=== PATIENT | female | born 1990 | race Caucasian/White ===

== ENCOUNTER → 2017-01-10 | Outpatient (CLI) | payer BC, OTHER ==
[~2017-01-10] MED LIST: BNT20 PO; CRFL PO; DICL75TA2 PO; HYDROCODONE PO; IBUP-1050 PO; ONDA4TAB65 PO; ONDA8TAB62 SL; OXYC1TAB3 PO; PANT40TA PO; PRENTAB65 PO; TRAM-10 PO
== END | disposition home or self-care (01) ==
LOC: C.RDSM 15:25
PROVIDERS: ATTEND Physical Medicine & Rehabilitation Sports Medicine
DX: M25.512 Pain in left shoulder (principal)

== ENCOUNTER 2017-01-15 18:23 | Emergency (ER) | payer OTHER ==
[~2017-01-15] VITALS: Ht 162.6 cm; Wt 103.8 kg
[~2017-01-15 18:23] MED LIST changes: -BNT20 PO; -CRFL PO; -DICL75TA2 PO; -ONDA4TAB65 PO; -ONDA8TAB62 SL; -OXYC1TAB3 PO; -PANT40TA PO; -PRENTAB65 PO; -TRAM-10 PO
[2017-01-15 18:33] VITALS: TEMP 37; Ht 162.6 cm; Wt 103.8 kg
--- NOTE | 2017-01-15 18:48 | EMERGENCY ROOM VISIT NOTE ---
ED Visit Note First contact with patient: 18:38 CHIEF COMPLAINT: Wrist injury HISTORY OF PRESENT ILLNESS: This 26-year-old female patient presents to the emergency department ambulatory complaining of pain in the right wrist after falling today. The patient is able to move their wrist. The patient states the pain is sharp and 9/10. No laceration, no weakness. No numbness or tingling. The patient denies any other injury. The patient is able to move their fingers and elbow without difficulty. The patient has not had any previous injuries to this wrist. The patient has taken nothing for the pain. REVIEW OF SYSTEMS: A 6 system review of systems was performed with positives and pertinent negatives in the HPI. ALLERGIES: Penicillin MEDICATIONS: Tramadol, Zofran, stomach medication PMH: Stomach problems SOCIAL HISTORY: The patient lives locally. She is a smoker PHYSICAL EXAM: Vital Signs: Reviewed Nurse's notes, vital signs stable. GENERAL : This is a 26-year-old female, in no acute distress, but appears to be in pain , well-developed, well-nourished. NEURO: Alert and oriented to person place and time. Normal sensation to light and sharp touch. MUSCULOSKELETAL: There is no deformity of the right wrist. There is no erythema and no ecchymosis. There is no edema. Tenderness over the wrist diffusely. There is no snuff box tenderness. There is tenderness with any movement. Range of motion is intact but painful. There is no tenderness of the elbow, hand or fingers. 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 Radial pulse 2+. SKIN: Normal and intact. The hand is warm and well perfused with capillary refill less than 2 seconds. EMERGENCY DEPARTMENT COURSE: I examined the patient. An X-ray of the right wrist was reviewed by myself and radiology and showed ulnar minus variance. The patient did seem to have some tenderness at the elbow. Therefore, x-rays of the elbow and forearm were ordered to evaluate for possible Galeazzi's fracture with ligamentous injury. These x-rays were negative. A wrist lacer splint was placed under my direction and the position was satisfactory. Neurovascular status rechecked and intact. The patient was given 1 Percocet in the emergency department. She does take tramadol and was encouraged to continue this medication as well as anti-inflammatories. She should follow-up with orthopedics in 5-7 days if her symptoms are not improving. The patient was discharged home in good condition. RIGHT WRIST W/NAVICULAR MIN 3 VIEWS CLINICAL HISTORY: Right wrist pain. Trauma. COMPARISON: None. DISCUSSION: There is ulnar minus variance. No acute fractures are visualized. IMPRESSION: Ulnar minus variance. No acute fractures. Problem List Medical Problems: (1) Acute bronchitis Status: Resolved Current/Historical Medications Scheduled Diclofenac Sodium (Voltaren), 75 MG PO BID Scheduled PRN Ondansetron Hcl (Zofran), 4 MG PO Q8 PRN for Nausea Tramadol (Ultram), 50 MG PO Q6H PRN for Pain Allergies Coded Allergies: Penicillins (Unverified Allergy, Mild, RASH, 05/27/16) Vital Signs Date Time Temp Pulse Resp B/P Pulse Ox O2 Delivery O2 Flow Rate FiO2 01/15/17 21:05 85 18 141/95 99 01/15/17 18:33 37.0 87 16 139/87 99 Room Air Medications Administered Medications (Trade) Dose Ordered Sig/Gamal Route Start Time Stop Time Status Last Admin Dose Admin Oxycodone/ Acetaminophen (Percocet 5-325mg Tab) 1 tab NOW ONCE PO 01/15/17 20:30 01/15/17 20:31 DC 01/15/17 21:02 1 TAB Departure Information Impression Primary Impression: Wrist sprain Dispostion Home / Self-Care Condition GOOD Referrals Chelsea Soliz D.O. (PCP) Seamus Castellano MD Forms HOME CARE DOCUMENTATION FORM, IMPORTANT VISIT INFORMATION, WORK / SCHOOL INSTRUCTIONS Patient Instructions ED Sprain Wrist, [facility] Additional Instructions Ibuprofen 600 mg every 6-8 hours or moderate pain Continue your tramadol as prescribed, as needed for pain Wear the splint when up and about Contact orthopedics for a follow-up appointment in 5-7 days if the symptoms are not improving Return with worsening symptoms
[2017-01-15] MEDS ORDERED: TRAM-10 PO (18:53)
[2017-01-15] MEDS ORDERED: ONDA4TAB65 PO (18:53)
[2017-01-15] MEDS ORDERED: DICL75TA2 PO (18:53)
--- NOTE | 2017-01-15 19:32 | DIAGNOSTIC IMAGING REPORT ---
RIGHT WRIST W/NAVICULAR MIN 3 VIEWS CLINICAL HISTORY: Right wrist pain. Trauma. COMPARISON: None. DISCUSSION: There is ulnar minus variance. No acute fractures are visualized. IMPRESSION: Ulnar minus variance. No acute fractures. Electronically signed by: Tucker Delong M.D. 01/15/2017 7:30 PM Dictated Date/Time: 01/15/2017 7:29 PM
--- NOTE | 2017-01-15 20:29 | DIAGNOSTIC IMAGING REPORT ---
RIGHT ELBOW 2 VIEWS CLINICAL HISTORY: Right elbow pain COMPARISON: None. DISCUSSION: The fat pads are not displaced. No fractures or dislocations are visualized. The AP view is limited from a positioning standpoint as the patient was unable to supinate. IMPRESSION: No fractures or dislocations identified. Electronically signed by: Tucker Delong M.D. 01/15/2017 8:27 PM Dictated Date/Time: 01/15/2017 8:26 PM
[2017-01-15] MEDS ORDERED: OXYCODONE/ACETAMINOPHEN 5-325 TAB PO ONE (20:30)
--- NOTE | 2017-01-15 20:30 | DIAGNOSTIC IMAGING REPORT ---
RIGHT FOREARM 2 VIEWS ROUTINE CLINICAL HISTORY: Right forearm pain COMPARISON: None. DISCUSSION: There is ulnar minus variance. No acute fractures are visualized. IMPRESSION: No fractures identified. Electronically signed by: Tucker Delong M.D. 01/15/2017 8:28 PM Dictated Date/Time: 01/15/2017 8:27 PM
[2017-01-15 21:05] VITALS: BP 141/95; PULSE 85; O2SAT 99
[2017-02-18] MEDS ORDERED: PANT40TA PO (15:15)
[2017-02-18] MEDS ORDERED: BNT20 PO (15:15)
== END 2017-01-15 21:27 | disposition home or self-care (01) ==
LOC: C.EDB 18:25 → C.EDD 21:27
DX: S63.501A Unspecified sprain of right wrist, initial encounter (principal); W19.XXXA Unspecified fall, initial encounter; F17.200 Nicotine dependence, unspecified, uncomplicated; Z87.19 Personal history of other diseases of the digestive system; Z88.1 Allergy status to other antibiotic agents

== ENCOUNTER → 2017-02-11 | Outpatient (CLI) | payer OTHER ==
[~2017-02-11] MED LIST changes: +BNT20 PO; +CRFL PO; +DICL75TA2 PO; -HYDROCODONE PO; -IBUP-1050 PO; +ONDA4TAB65 PO; +ONDA8TAB62 SL; +OXYC1TAB3 PO; +PANT40TA PO; +PRENTAB65 PO; +TRAM-10 PO
== END | disposition home or self-care (01) ==
LOC: C.RDSM 14:03
PROVIDERS: ATTEND Physical Medicine & Rehabilitation Sports Medicine
DX: M25.532 Pain in left wrist (principal)

== ENCOUNTER 2017-02-17 07:56 | Emergency (ER) | payer OTHER ==
[~2017-02-17] VITALS: Ht 160 cm; Wt 105.9 kg
[~2017-02-17 07:56] MED LIST changes: -BNT20 PO; -CRFL PO; -ONDA8TAB62 SL; -OXYC1TAB3 PO; -PANT40TA PO; -PRENTAB65 PO
[2017-02-17 08:00] VITALS: TEMP 36.8; Ht 160 cm; Wt 105.9 kg
[2017-02-17] MEDS ORDERED: ONDANSETRON INJ 2 MG/ML 2 ML VIAL IV STA (08:22)
[2017-02-17] MEDS ORDERED: SODIUM CHLORIDE 0.9% 1000ML 1,000 ML IV STA (08:22)
[2017-02-17] MEDS ORDERED: MoRPHine SULFATE 4 MG/ML 1 ML CARP\\VIAL IV STA (08:22)
[2017-02-17] MEDS ORDERED: MoRPHine SULFATE 4 MG/ML 1 ML CARP\\VIAL IV PRN (08:30)
[2017-02-17 09:06] LABS: BASO % 0.4 %; BASO ABS # 0.03 K/uL (0-0.2); COMPLETE YES; EOS % 3.3 %; HEMATOCRIT 42.9 % (37-47); IG% 0.5 %; LYMPH % 22.5 %; LYMPH ABS # 1.84 K/uL (1.2-3.4); MEAN CELL VOLUME 89.4 fL (80-100); MEAN CORPUSCULAR HEMOGLOBIN 30.4 pg (25-34); MEAN PLATELET VOLUME 9.9 fL (7.4-10.4); MONO % 8.8 %; NEUT % 64.5 %; PLATELET COUNT 168 K/uL (130-400); WHITE BLOOD COUNT 8.17 K/uL (4.8-10.8)
[2017-02-17 09:16] LABS: URINE APPEARANCE CLEAR (CLEAR); URINE BILIRUBIN NEG (NEG); URINE COLOR YELLOW; URINE EPITHELIAL CELL AUTO >30 /lpf (0-5); URINE NITRITE NEG (NEG); URINE PH 5.5 (4.5-7.5); URINE SPECIFIC GRAVITY 1.018 (1.000-1.030); UROBILINOGEN NEG (NEG)
[2017-02-17 09:17] LABS: INR 0.9 (0.9-1.1); PARTIAL THROMBOPLASTIN RATIO 1.1
[2017-02-17 09:19] LABS: MANUAL MICROSCOPIC REQUIRED? NO; REVIEW REQ? NO
[2017-02-17 09:23] LABS: ALT/SGPT 65 U/L (12-78); BLOOD UREA NITROGEN 10 mg/dl (7-18); BUN/CREATININE RATIO 11.6 (10-20); CALCIUM 8.7 mg/dl (8.5-10.1); CARBON DIOXIDE 29 mmol/L (21-32); CHLORIDE 106 mmol/L (98-107); CREATININE 0.86 mg/dl (0.60-1.20); GLUCOSE 116 mg/dl (70-99); POTASSIUM 3.8 mmol/L (3.5-5.1); SODIUM 141 mmol/L (136-145)
[2017-02-17 09:26] LABS: ALKALINE PHOSPHATASE 77 U/L (45-117); AST/SGOT 31 U/L (15-37)
[2017-02-17] MEDS ORDERED: MoRPHine SULFATE 10 MG/ML CARP/VIAL IV STA (10:11)
[2017-02-17 11:09] VITALS: BP 143/95; PULSE 71; O2SAT 99
[2017-02-17] MEDS ORDERED: OXYC1TAB3 PO (11:38)
--- NOTE | 2017-02-17 17:42 | EMERGENCY ROOM VISIT NOTE ---
History First contact with patient: 08:03 Chief Complaint: GI ASSESSMENT Stated Complaint: MIGRAINE, VOMITING W/BLOOD, BLOOD IN STOOL Nursing Triage Summary: vomitied blood this morning. denies abdominal pain. "I do also have a headache" History of Present Illness The patient is a 26 year old female who presents to the Emergency Room with complaints of constant epigastric abdominal pain with bloody vomitus and blood on her stool this morning. The patient reports that bleeding from both ends were bright red in appearance. The patient denies any prior history of GI bleed. The patient reports that she has recently had a cold with mild sinus congestion. She has had a nonproductive cough. The patient is status post cholecystectomy last fall, and has had intermittent nausea since that time. She has also undergone upper endoscopy studies that have been normal. She is under the care of Dr. Dickens. The patient reports that she ate some fried food from [employer] last night. She also reports a frontal headache. She denies any urinary symptoms, recent constipation or diarrhea. She rates her overall discomfort a 10 out of 10. Review of Systems HEENT: Denies dizziness, visual problems, hearing loss, tinnitus. Denies difficulty swallowing or oral lesions. PULMONARY: Patient reports a mild nonproductive cough, without shortness of breath, sputum production or hemoptysis. CARDIOVASCULAR: Denies chest pain, palpitations, dyspnea on exertion, orthopnea or peripheral edema. GASTROINTESTINAL: Denies diarrhea or constipation, otherwise see history of present illness. GENITOURINARY: Denies dysuria, frequency, urgency or nocturia. NEUROLOGIC: Denies history of epilepsy, CVA, TIA or chronic headaches. MUSCULOSKELETAL: Denies history of joint tenderness/swelling. SKIN: Denies rashes or lesions. PSYCHIATRIC: Denies history of depression or mental illness. ENDOCRINE: Denies history of diabetes or thyroid disorders. Past Medical/Surgical History Medical Problems: (1) Acute bronchitis Medical Problems: (1) Acute bronchitis (2) Cigarette nicotine dependence, uncomplicated (3) Depressive Disorder Nec (4) Esophageal Reflux (5) Pneumonia, Organism Nos (6) Tobacco use disorder Surgical Problems: (1) History of arthroscopy of shoulder (2) History of cholecystectomy Family History Diabetes mellitus FH: cancer FH: gallbladder disease FH: hypertension FH: lung disease FH: seizures Kidney disease Social History Smoking Status: Current Every Day Smoker Alcohol Use: occasionally Marital Status: single Occupation Status: employed Current/Historical Medications Scheduled Diclofenac Sodium (Voltaren), 75 MG PO BID Scheduled PRN Ondansetron Hcl (Zofran), 4 MG PO Q8 PRN for Nausea Oxycodone Ir (Roxicodone Ir), 1 TAB PO Q6H PRN for Pain Tramadol (Ultram), 50 MG PO Q6H PRN for Pain Allergies Coded Allergies: Penicillins (Unverified Allergy, Mild, RASH, 02/17/17) Physical Exam Vital Signs Date Time Temp Pulse Resp B/P Pulse Ox O2 Delivery O2 Flow Rate FiO2 02/17/17 11:09 71 18 143/95 99 Room Air 02/17/17 10:30 90 18 122/82 98 Room Air 02/17/17 08:00 36.8 77 18 120/78 98 Room Air Physical Exam CONSTITUTIONAL: Obese female, alert and oriented X 3 with positive affect. Patient appears in mild discomfort on exam. She does not appear acutely or toxic. HEENT: Normocephalic, atraumatic. Pupils equal, round and reactive. Ears and nares are clear. No scleral icterus or conjunctival pallor. NECK: Full active range of motion without discomfort. RESPIRATORY: Clear to auscultation bilaterally with no wheezing, crackles, rhonchi or stridor. CARDIOVASCULAR: Regular rate and rhythm with no murmurs, rubs or gallops. GASTROINTESTINAL: Bowel sounds present in all quadrants. Patient has moderate epigastric, right upper quadrant and left upper quadrant tenderness to palpation. No abdominal rigidity, guarding or rebound. Negative CVA tenderness. Negative McBurney's point tenderness. MUSCULOSKELETAL: Full range of motion of all joints without discomfort. INTEGUMENTARY: No rash or other significant dermatologic conditions noted. HEMATOLOGIC: No ecchymosis or petechiae. NEUROLOGIC: No focal neurologic deficits noted. Medical Decision & Procedures Laboratory Results 02/17/17 08:55 Red Blood Count 4.80, Mean Corpuscular Volume 89.4, Mean Corpuscular Hemoglobin 30.4, Mean Corpuscular Hemoglobin Concent 34.0, Mean Platelet Volume 9.9, Neutrophils (%) (Auto) 64.5, Lymphocytes (%) (Auto) 22.5, Monocytes (%) (Auto) 8.8, Eosinophils (%) (Auto) 3.3, Basophils (%) (Auto) 0.4, Neutrophils # (Auto) 5.27, Lymphocytes # (Auto) 1.84, Monocytes # (Auto) 0.72, Eosinophils # (Auto) 0.27, Basophils # (Auto) 0.03 02/17/17 08:55 Test 02/17/17 08:55 02/17/17 09:00 White Blood Count 8.17 K/uL (4.8-10.8) Red Blood Count 4.80 M/uL (4.2-5.4) Hemoglobin 14.6 g/dL (12.0-16.0) Hematocrit 42.9 % (37-47) Mean Corpuscular Volume 89.4 fL (80-100) Mean Corpuscular Hemoglobin 30.4 pg (25-34) Mean Corpuscular Hemoglobin Concent 34.0 g/dl (32-36) Platelet Count 168 K/uL (130-400) Mean Platelet Volume 9.9 fL (7.4-10.4) Neutrophils (%) (Auto) 64.5 % Lymphocytes (%) (Auto) 22.5 % Monocytes (%) (Auto) 8.8 % Eosinophils (%) (Auto) 3.3 % Basophils (%) (Auto) 0.4 % Neutrophils # (Auto) 5.27 K/uL (1.4-6.5) Lymphocytes # (Auto) 1.84 K/uL (1.2-3.4) Monocytes # (Auto) 0.72 K/uL (0.11-0.59) Eosinophils # (Auto) 0.27 K/uL (0-0.5) Basophils # (Auto) 0.03 K/uL (0-0.2) RDW Standard Deviation 39.9 fL (36.4-46.3) RDW Coefficient of Variation 12.3 % (11.5-14.5) Immature Granulocyte % (Auto) 0.5 % Immature Granulocyte # (Auto) 0.04 K/uL (0.00-0.02) Prothrombin Time 10.0 SECONDS (9.0-12.0) Prothromb Time International Ratio 0.9 (0.9-1.1) Activated Partial Thromboplast Time 28.3 SECONDS (21.0-31.0) Partial Thromboplastin Ratio 1.1 Anion Gap 6.0 mmol/L (3-11) Est Creatinine Clear Calc Drug Dose 116.5 ml/min Estimated GFR () 108.8 Estimated GFR (Non- 93.9 BUN/Creatinine Ratio 11.6 (10-20) Calcium Level 8.7 mg/dl (8.5-10.1) Total Bilirubin 0.3 mg/dl (0.2-1) Direct Bilirubin < 0.1 mg/dl (0-0.2) Aspartate Amino Transf (AST/SGOT) 31 U/L (15-37) Alanine Aminotransferase (ALT/SGPT) 65 U/L (12-78) Alkaline Phosphatase 77 U/L (45-117) Total Creatine Kinase 67 U/L (26-192) Total Protein 7.1 gm/dl (6.4-8.2) Albumin 3.5 gm/dl (3.4-5.0) Lipase 134 U/L (73-393) Urine Color YELLOW Urine Appearance CLEAR (CLEAR) Urine pH 5.5 (4.5-7.5) Urine Specific [place] 1.018 (1.000-1.030) Urine Protein NEG (NEG) Urine Glucose (UA) NEG (NEG) Urine Ketones NEG (NEG) Urine Occult Blood NEG (NEG) Urine Nitrite NEG (NEG) Urine Bilirubin NEG (NEG) Urine Urobilinogen NEG (NEG) Urine Leukocyte Esterase TRACE (NEG) Urine WBC (Auto) 5-10 /hpf (0-5) Urine RBC (Auto) 0-4 /hpf (0-4) Urine Hyaline Casts (Auto) 1-5 /lpf (0-5) Urine Epithelial Cells (Auto) >30 /lpf (0-5) Urine Bacteria (Auto) 1+ (NEG) The above labs were reviewed. Medications Administered Medications (Trade) Dose Ordered Sig/Gamal Route Start Time Stop Time Status Last Admin Dose Admin Sodium Chloride (Nss 1000ml) 1,000 ml @ 999 mls/hr Q1H1M STAT IV 02/17/17 08:22 02/17/17 09:22 DC 02/17/17 09:13 999 MLS/HR Ondansetron HCl (Zofran Inj) 4 mg NOW STAT IV 02/17/17 08:22 02/17/17 08:24 DC 02/17/17 09:12 4 MG Morphine Sulfate (MoRPHine SULFATE INJ) 4 mg NOW STAT IV 02/17/17 08:22 02/17/17 08:24 DC 02/17/17 09:12 4 MG Morphine Sulfate (MoRPHine SULFATE INJ) 8 mg NOW STAT IV 02/17/17 10:11 02/17/17 10:13 DC 02/17/17 10:38 8 MG ED Course Patient history and physical exam were performed. Nurse's notes were reviewed. Vital signs were reviewed and normal. IV access was established, and labs were drawn. The patient was hydrated with a liter normal saline, and received IV morphine and Zofran for pain. Review of labs shows no significant findings. Upon reevaluation, the patient was still having some discomfort, and was administered additional morphine IVP. This reduced the patient's discomfort to a 3 out of 10. The patient was encouraged to follow-up with her PCP for further reevaluation and management. At this time, the patient was advised that she is hemodynamically stable. The patient was given instructions on Maalox and Zantac use. If the patient is indeed currently taking diclofenac, she was instructed to stop this medication, and discuss further medication management with her PCP. She was also encouraged to avoid caffeine and alcohol. Return to the emergency department for any progressively worsening symptoms. The patient was happy with plan of care, and voiced understanding of all discharge instructions. Medical Decision Patient presents to the emergency department with complaint of hematemesis and bloody stools. Her workup today is unremarkable with a negative stool Hemoccult. Her laboratory studies does not show any anemia, leukocytosis or elevated BUN. Laboratory studies also are not suggestive of cholecystitis, hepatitis or UTI. At this point, I do not feel that further imaging tests are warranted. Impression Primary Impression: Nausea, vomiting, and diarrhea Additional Impression: Abdominal pain Departure Information Prescriptions Oxycodone Ir (Roxicodone Ir) 5 Mg Tab 1 TAB PO Q6H Y for Pain, #10 TAB For Initial Treatment Prov: Richie Riley PA 02/17/17 Referrals Chelsea Soliz D.O. (PCP) Patient Instructions [facility] Problem Qualifiers Additional Impression: Abdominal pain Abdominal location: epigastric Qualified Codes: R10.13 - Epigastric pain
[2017-02-18] MEDS ORDERED: PANT40TA PO (15:15)
[2017-02-18] MEDS ORDERED: BNT20 PO (15:15)
== END 2017-02-17 11:12 | disposition home or self-care (01) ==
LOC: C.EDB 07:57
DX: R11.2 Nausea with vomiting, unspecified (principal); R19.7 Diarrhea, unspecified; K92.0 Hematemesis; F32.9 Major depressive disorder, single episode, unspecified; K21.9 Gastro-esophageal reflux disease without esophagitis; F17.200 Nicotine dependence, unspecified, uncomplicated; Z79.899 Other long term (current) drug therapy; Z90.49 Acquired absence of other specified parts of digestive tract; Z88.0 Allergy status to penicillin; Z80.9 Family history of malignant neoplasm, unspecified; Z83.79 Family history of other diseases of the digestive system; Z82.49 Family history of ischemic heart disease and other diseases of the circulatory system; Z82.0 Family history of epilepsy and other diseases of the nervous system; Z84.1 Family history of disorders of kidney and ureter

== ENCOUNTER 2017-02-17 19:27 | Inpatient (IN) | payer OTHER ==
[~2017-02-17] VITALS: Ht 160 cm; Wt 105.4 kg
[~2017-02-17 19:27] MED LIST changes: +OXYC1TAB3 PO
[2017-02-17] MEDS ORDERED: SODIUM CHLORIDE 0.9% 1000ML 1,000 ML IV STA (19:59)
[2017-02-17] MEDS ORDERED: ONDANSETRON INJ 2 MG/ML 2 ML VIAL IV STA (19:59)
[2017-02-17 21:02] LABS: BASO % 0.3 %; BASO ABS # 0.03 K/uL (0-0.2); COMPLETE YES; EOS % 1.9 %; IG% 0.3 %; LYMPH % 15.6 %; LYMPH ABS # 1.59 K/uL (1.2-3.4); MEAN CELL VOLUME 89.5 fL (80-100); MEAN CORPUSCULAR HEMOGLOBIN 31.5 pg (25-34); MEAN CORPUSCULAR HGB CONC 35.3 g/dl (32-36); MEAN PLATELET VOLUME 9.8 fL (7.4-10.4); MONO % 5.2 %; NEUT % 76.7 %; PLATELET COUNT 159 K/uL (130-400); RED BLOOD COUNT 4.47 M/uL (4.2-5.4); WHITE BLOOD COUNT 10.21 K/uL (4.8-10.8)
[2017-02-17 21:18] LABS: ALT/SGPT 135 U/L (12-78); AMYLASE 32 U/L (25-115); BLOOD UREA NITROGEN 11 mg/dl (7-18); BUN/CREATININE RATIO 13.8 (10-20); CARBON DIOXIDE 26 mmol/L (21-32); CHLORIDE 107 mmol/L (98-107); CREATININE 0.77 mg/dl (0.60-1.20); GLUCOSE 162 mg/dl (70-99); POTASSIUM 3.7 mmol/L (3.5-5.1); SODIUM 141 mmol/L (136-145)
[2017-02-17 21:23] LABS: ALB/GLOB RATIO 1.1 (0.9-2); ALKALINE PHOSPHATASE 80 U/L (45-117); AST/SGOT 91 U/L (15-37)
[2017-02-17 21:30] LABS: PREG INTERNAL NEGATIVE QC NEG CLEAR BACKGROUND; PREG INTERNAL POSITIVE QC POS CONTROL LINE
--- NOTE | 2017-02-17 21:34 | DIAGNOSTIC IMAGING REPORT ---
ABDOMINAL ULTRASOUND, RIGHT UPPER QUADRANT HISTORY: Pain. Nausea. Epigastric and RUQ pain, emesis, nausea, diarrhea. COMPARISON: None. FINDINGS: Pancreas: The pancreas demonstrates a normal echotexture. Liver: Fatty infiltration. Upper lobe nodule] of unchanged in the prior exam. This may represent a regional area of sparing versus hepatic cyst. Gallbladder: Prior cholecystectomy CBD: 4 mm Right kidney: Negative for hydronephrosis IMPRESSION: Fatty infiltration of liver. Otherwise negative study post cholecystectomy Electronically signed by: David Ross M.D. 02/17/2017 9:33 PM Dictated Date/Time: 02/17/2017 9:31 PM
[2017-02-17] MEDS ORDERED: MoRPHine SULFATE 4 MG/ML 1 ML CARP\\VIAL IV STA ×2 (21:40→23:07)
[2017-02-17 21:54] LABS: CALCIUM 8.6 mg/dl (8.5-10.1)
[2017-02-17] MEDS ORDERED: OPTIRAY 320 IV PRN (22:15)
[2017-02-17 22:50] LABS: URINE APPEARANCE CLEAR (CLEAR); URINE BILIRUBIN NEG (NEG); URINE COLOR YELLOW; URINE NITRITE NEG (NEG); URINE SPECIFIC GRAVITY 1.021 (1.000-1.030); UROBILINOGEN NEG (NEG); ZZUR CULT IF INDIC CLEAN CATCH NO
[2017-02-17 22:56] LABS: MANUAL MICROSCOPIC REQUIRED? NO; REVIEW REQ? NO
[2017-02-17 23:12] LABS: BENZODIAZEPINE, URINE NEG (NEG); COCAINE,URINE NEG (NEG); PHENCYCLIDINE, URINE NEG (NEG)
--- NOTE | 2017-02-17 23:49 | EMERGENCY ROOM VISIT NOTE ---
History First contact with patient: 19:43 Chief Complaint: VOMITING Stated Complaint: THREW UP BLOOD THIS MORNING Nursing Triage Summary: Abdominal pain with nausea and vomiting. Seen here in the ED or same symptoms. History of Present Illness The patient is a 26 year old female who presents to the Emergency Room via private vehicle accompanied by female's with complaints of "throat blood this morning". Patient states that she was seen here earlier for similar complaints. She states that overall, she has been nauseated since she's had her gallbladder removed by Dr. Dickens last year. She states that she is also nauseated. She states that she has seen her family doctor 6 times in the past month for abdominal pain. She states that she is tried many medications and has had endoscopies. She states that these endoscopies were prior to the recent gallbladder removal. She states that she is losing a lot of time from work, and has lost a job in the past secondary to her symptoms. She states that she ate fatty food last night, and had diarrhea with blood in her stool. She also began to vomit today with bright red blood. She states that there is bright red blood on top of the stool. She also notes that when she vomits there was some blood. She points to the epigastric region of her abdomen is location of pain that she rates as a 10/10. She states that her last bowel movement was last night. She denies any recent caffeine intake, chance of . Review of Systems A complete 10-point Review of Systems was discussed with the patient, with pertinent positives and negatives listed in the History of Present Illness. All remaining Review of Systems questions can be considered negative unless otherwise specified. Past Medical/Surgical History Medical Problems: (1) Acute bronchitis (2) Cigarette nicotine dependence, uncomplicated (3) Depressive Disorder Nec (4) Esophageal Reflux (5) GI bleed (6) Pneumonia, Organism Nos (7) Tobacco use disorder Surgical Problems: (1) History of arthroscopy of shoulder (2) History of cholecystectomy Family History Diabetes mellitus FH: cancer FH: gallbladder disease FH: hypertension FH: lung disease FH: seizures Kidney disease Social History Smoking Status: Current Every Day Smoker Alcohol Use: occasionally Marital Status: single Occupation Status: employed Current/Historical Medications Scheduled PRN Ondansetron Hcl (Zofran), 4 MG PO Q8 PRN for Nausea Oxycodone Ir (Roxicodone Ir), 1 TAB PO Q6H PRN for Pain Tramadol (Ultram), 50 MG PO Q6H PRN for Pain Allergies Coded Allergies: Penicillins (Unverified Allergy, Mild, RASH, 02/17/17) Physical Exam Vital Signs Date Time Temp Pulse Resp B/P Pulse Ox O2 Delivery O2 Flow Rate FiO2 02/18/17 01:34 70 16 142/75 97 Room Air 02/17/17 23:39 72 20 135/83 95 Room Air 02/17/17 22:43 66 20 144/86 95 Room Air 02/17/17 21:30 67 18 114/77 96 Room Air 02/17/17 19:33 36.7 86 18 147/87 97 Room Air Physical Exam VITAL SIGNS - Vital signs and nursing notes were reviewed. Patient is afebrile , hypertensive at 147/87, non-tachycardic and is saturating well on room air at 97%. GENERAL -26-year-old female appearing her stated age who is in no acute distress. Communicates well with provider and answers questions appropriately. SKIN - Without rashes. No petechial rashes. HEAD - NC/AT. EYES - Sclera anicteric. Palpebral conjunctiva pink and moist with no injection noted. EARS - No deformities of external structures noted on gross examination bilaterally. NOSE - Midline and without cyanosis. No epistaxis or purulent drainage noted. MOUTH/OROPHARYNX - Without perioral cyanosis. Buccal mucosa pink and moist and without leukoplakia. Tongue midline with equal elevation of palate bilaterally. No tonsillar hypertrophy, erythema, or exudates noted. Fair dentition noted. No blood in the posterior pharynx LUNGS - Chest wall symmetric without accessory muscle use, intercostals retractions, or central cyanosis. Normal vesicular breath sounds CTA B/L. No wheezes, rales, or rhonchi appreciated. CARDIAC - RRR with S1/S2. No murmur, rubs, or gallops appreciated. ABDOMEN - Abdominal contour without pulsations or visible masses. BS normoactive all four quadrants. There is appreciable tenderness in the epigastric and right upper quadrant regions. No palpable masses, hepatosplenomegaly, or ascites noted. Medical Decision & Procedures ER Provider Diagnostic Interpretation: ABDOMINAL ULTRASOUND, RIGHT UPPER QUADRANT HISTORY: Pain. Nausea. Epigastric and RUQ pain, emesis, nausea, diarrhea. COMPARISON: None. FINDINGS: Pancreas: The pancreas demonstrates a normal echotexture. Liver: Fatty infiltration. Upper lobe nodule] of unchanged in the prior exam. This may represent a regional area of sparing versus hepatic cyst. Gallbladder: Prior cholecystectomy CBD: 4 mm Right kidney: Negative for hydronephrosis IMPRESSION: Fatty infiltration of liver. Otherwise negative study post cholecystectomy Electronically signed by: David Ross M.D. 02/17/2017 9:33 PM Dictated Date/Time: 02/17/2017 9:31 PM As per stat rad: CT abdomen and pelvis: Visualized lower thorax demonstrates dependent atelectasis, enhancing lesion seen within hepatic segment 7 which may represent a flash filling hemangioma. The gallbladder surgically absent. The pancreas, spleen, and adrenal glands are unremarkable. The kidneys, ureters and urinary bladder are unremarkable. The uterus and adnexa are unremarkable. The appendix is unremarkable. The stomach, small bowel and colon are unremarkable. Trace free fluid in the pelvis, likely physiologic. No acute osseous abnormalities. Laboratory Results 02/17/17 20:49 Red Blood Count 4.47, Mean Corpuscular Volume 89.5, Mean Corpuscular Hemoglobin 31.5, Mean Corpuscular Hemoglobin Concent 35.3, Mean Platelet Volume 9.8, Neutrophils (%) (Auto) 76.7, Lymphocytes (%) (Auto) 15.6, Monocytes (%) (Auto) 5.2, Eosinophils (%) (Auto) 1.9, Basophils (%) (Auto) 0.3, Neutrophils # (Auto) 7.84, Lymphocytes # (Auto) 1.59, Monocytes # (Auto) 0.53, Eosinophils # (Auto) 0.19, Basophils # (Auto) 0.03 02/17/17 20:49 Test 02/17/17 20:49 02/17/17 22:16 White Blood Count 10.21 K/uL (4.8-10.8) Red Blood Count 4.47 M/uL (4.2-5.4) Hemoglobin 14.1 g/dL (12.0-16.0) Hematocrit 40.0 % (37-47) Mean Corpuscular Volume 89.5 fL (80-100) Mean Corpuscular Hemoglobin 31.5 pg (25-34) Mean Corpuscular Hemoglobin Concent 35.3 g/dl (32-36) Platelet Count 159 K/uL (130-400) Mean Platelet Volume 9.8 fL (7.4-10.4) Neutrophils (%) (Auto) 76.7 % Lymphocytes (%) (Auto) 15.6 % Monocytes (%) (Auto) 5.2 % Eosinophils (%) (Auto) 1.9 % Basophils (%) (Auto) 0.3 % Neutrophils # (Auto) 7.84 K/uL (1.4-6.5) Lymphocytes # (Auto) 1.59 K/uL (1.2-3.4) Monocytes # (Auto) 0.53 K/uL (0.11-0.59) Eosinophils # (Auto) 0.19 K/uL (0-0.5) Basophils # (Auto) 0.03 K/uL (0-0.2) RDW Standard Deviation 40.0 fL (36.4-46.3) RDW Coefficient of Variation 12.3 % (11.5-14.5) Immature Granulocyte % (Auto) 0.3 % Immature Granulocyte # (Auto) 0.03 K/uL (0.00-0.02) Anion Gap 8.0 mmol/L (3-11) Est Creatinine Clear Calc Drug Dose 130.2 ml/min Estimated GFR () 124.4 Estimated GFR (Non- 107.3 BUN/Creatinine Ratio 13.8 (10-20) Calcium Level 8.6 mg/dl (8.5-10.1) Magnesium Level 2.0 mg/dl (1.8-2.4) Total Bilirubin 0.4 mg/dl (0.2-1) Aspartate Amino Transf (AST/SGOT) 91 U/L (15-37) Alanine Aminotransferase (ALT/SGPT) 135 U/L (12-78) Alkaline Phosphatase 80 U/L (45-117) Troponin I < 0.015 ng/ml (0-0.045) Total Protein 6.6 gm/dl (6.4-8.2) Albumin 3.4 gm/dl (3.4-5.0) Globulin 3.2 gm/dl (2.5-4.0) Albumin/Globulin Ratio 1.1 (0.9-2) Amylase Level 32 U/L (25-115) Lipase 96 U/L (73-393) Human Chorionic Gonadotropin, Qual NEG (NEG) Urine Color YELLOW Urine Appearance CLEAR (CLEAR) Urine pH 8.0 (4.5-7.5) Urine Specific [place] 1.021 (1.000-1.030) Urine Protein NEG (NEG) Urine Glucose (UA) TRACE (NEG) Urine Ketones NEG (NEG) Urine Occult Blood NEG (NEG) Urine Nitrite NEG (NEG) Urine Bilirubin NEG (NEG) Urine Urobilinogen NEG (NEG) Urine Leukocyte Esterase NEG (NEG) Urine Opiates Screen POS (NEG) Urine Methadone, Qualitative NEG (NEG) Urine Barbiturates NEG (NEG) Urine Phencyclidine (PCP) Level NEG (NEG) Ur Amphetamine/Methamphetamine NEG (NEG) MDMA (Ecstasy) Screen NEG (NEG) Urine Benzodiazepines Screen NEG (NEG) Urine Cocaine Metabolite NEG (NEG) Urine Marijuana (THC) NEG (NEG) Medications Administered Medications (Trade) Dose Ordered Sig/Gamal Route Start Time Stop Time Status Last Admin Dose Admin Sodium Chloride (Nss 1000ml) 1,000 ml @ 200 mls/hr Q5H STAT IV 02/17/17 19:59 02/18/17 00:58 DC 02/17/17 19:59 200 MLS/HR Ondansetron HCl (Zofran Inj) 4 mg NOW STAT IV 02/17/17 19:59 02/17/17 20:03 DC 02/17/17 21:06 4 MG Morphine Sulfate (MoRPHine SULFATE INJ) 4 mg NOW STAT IV 02/17/17 21:40 02/17/17 21:41 DC 02/17/17 21:55 4 MG Morphine Sulfate (MoRPHine SULFATE INJ) 4 mg NOW STAT IV 02/17/17 23:07 02/17/17 23:09 DC 02/17/17 23:40 4 MG Medical Decision Patient was seen and evaluated as above. After obtaining a thorough history and physical examination, her previous visit was extensively reviewed. Patient was seen here in the emergency department just hours ago. She was seen for similar complaints. It appears that she has gone home and attempted to tolerate by mouth intake with Zofran which failed. She at this time complains of 10 out of 10 abdominal pain. In reviewing previous imaging, she has not had abdominal imaging recently. I did elect to obtain an ultrasound, with results as above. There is a small hepatic cyst with fatty liver and unremarkable remainder of examination. Benefits versus risk of obtaining a CT scan was discussed with the patient. She was given morphine for pain. CT scan was decided with joint decision making. This does reveal a potential flash filling hemangioma of which the patient was educated upon. A by mouth fluid trial was initiated, and the patient was able tolerate a minimal amount of fluid. Benefits versus risks of staying in the hospital was discussed with the patient , and at this time I do believe that staying in the hospital for abdominal pain for unknown etiology, with recurrent emesis is warranted. CBC reveals no leukocytosis or anemia. CMP does reveal random glucose of 162, and an interval elevation of AST and ALT from earlier today. Urine reveals high pH, otherwise negative. Urine tox screen is positive for opiates, which is expected that she was given morphine earlier today. Patient's vital signs have and stable throughout her stay. I did discuss the case with my attending, and the decision was made to admit the patient to the hospital for further evaluation and management of her abdominal pain with recurrent emesis. I did discuss the case with the hospital's, who agreed to evaluate the patient. Please refer to further documentation regarding the patient's stay. EKG: RBB, she is to follow up with PCP regarding this. In evaluation treatment this patient the following differential diagnoses were entertained: Pancreatitis, perforation of abdominal organ, hepatitis, hemangioma , malignant process, neck tissue's/drug seeking behavior, UTI, pyelonephritis, among others,. Impression Primary Impression: Abdominal pain Additional Impression: Vomiting Departure Information Dispostion Admitted as an inpatient Condition FAIR Referrals Chelsea Soliz D.O. (PCP) Patient Instructions My [facility] Problem Qualifiers Primary Impression: Abdominal pain Abdominal location: epigastric Qualified Codes: R10.13 - Epigastric pain
[2017-02-18] MEDS ORDERED: TRAMADOL HCL 50 MG TAB PO PRN (01:45)
--- NOTE | 2017-02-18 01:53 | History and Physical ---
History & Physical Date & Time of Service: February 18, 2017 at 01:45 Chief Complaint: Threw Up Blood This Morning Primary Care Physician: Chelsea Soliz D.O. History of Present Illness Source: patient, clinic records, hospital records 26 year old female with history of IBS presenting with abdominal pain and vomiting with blood. Patient follows with Dr. Soliz for Primary Care and [facility]. Patient states she has been having chronic abdominal pain since her cholecystectomy last year. She has had extensive work up for her abdominal pain including GES and EGD recently which were unrevealing. Per patient, pain is relieved with Tramadol. Today, patient was experiencing persistent nausea and vomiting at least 4 times. With vomiting, she noticed bright red blood, about 1 teaspoon during each episode. Last night, she also noticed blood tinged stools. She then presented to the ED this morning. Abdominal US showed fatty liver and her Hg was 14.6. She was discharged home but returned this evening due to persistence of symptoms. Her Hg is still at 14.1 On exam, patient resting comfortably in bed, states Morphine alleviates her pain. Otherwise, no other symptoms. Past Medical/Surgical History Medical Problems: (1) Acute bronchitis Status: Resolved Family History Diabetes mellitus FH: cancer FH: gallbladder disease FH: hypertension FH: lung disease FH: seizures Kidney disease Social History Smoking Status: Current Every Day Smoker Marital Status: single Housing status: lives with family Occupational Status: employed Allergies Coded Allergies: Penicillins (Unverified Allergy, Mild, RASH, 02/17/17) Home Medications Scheduled PRN Ondansetron Hcl (Zofran), 4 MG PO Q8 PRN for Nausea Oxycodone Ir (Roxicodone Ir), 1 TAB PO Q6H PRN for Pain Tramadol (Ultram), 50 MG PO Q6H PRN for Pain Review of Systems Constitutional- no fever; no weight loss Eyes- no acute visual changes ENT- no sinus drainage; no pharyngitis Pulmonary- no cough, no wheezing, no shortness of breath Cardiac- no chest pain, no palpitations, no orthopnea, no dependent edema GI-(+) as noted above - no dysuria, no hematuria Musculoskeletal- no arthralgias, no myalgias Derm- no rashes, no new skin lesions, no changing skin lesions Hematologic- no unusual bruising, no unusual bleeding Lymphatics- no adenopathy Endocrine- no polyuria or polydipsia; no heat or cold intolerance Neuro- no headaches, no focal neurologic symptoms Psych- no anxiety, no depression Physical Exam Vital Signs Date Time Temp Pulse Resp B/P Pulse Ox O2 Delivery O2 Flow Rate FiO2 02/18/17 01:34 70 16 142/75 97 Room Air 02/17/17 23:39 72 20 135/83 95 Room Air 02/17/17 22:43 66 20 144/86 95 Room Air 02/17/17 21:30 67 18 114/77 96 Room Air 02/17/17 19:33 36.7 86 18 147/87 97 Room Air General Appearance: WD/WN, no apparent distress Head: normocephalic, atraumatic Eyes: normal inspection, PERRL, EOMI, sclerae normal ENT: normal ENT inspection, hearing grossly normal, pharynx normal Neck: supple, no adenopathy, thyroid normal, no JVD, trachea midline Respiratory/Chest: chest non-tender, lungs clear, normal breath sounds, no respiratory distress, no accessory muscle use Cardiovascular: regular rate, rhythm, no edema, no gallop, no JVD, no murmur Abdomen/GI: normal bowel sounds, non tender, soft, no organomegaly Back: normal inspection, no CVA tenderness Extremities/Musculoskelatal: normal inspection, no calf tenderness, normal capillary refill, no pedal edema, normal range of motion 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, no motor/sensory deficits, alert, normal mood/affect, normal reflexes, oriented x 3 Skin: normal color, warm/dry, no rash Lymphatic: no adenopathy Diagnostics Laboratory Results Results Past 24 Hours Test 02/17/17 20:49 02/17/17 22:16 Range/Units White Blood Count 10.21 4.8-10.8 K/uL Red Blood Count 4.47 4.2-5.4 M/uL Hemoglobin 14.1 12.0-16.0 g/dL Hematocrit 40.0 37-47 % Mean Corpuscular Volume 89.5 80-100 fL Mean Corpuscular Hemoglobin 31.5 25-34 pg Mean Corpuscular Hemoglobin Concent 35.3 32-36 g/dl Platelet Count 159 130-400 K/uL Mean Platelet Volume 9.8 7.4-10.4 fL Neutrophils (%) (Auto) 76.7 % Lymphocytes (%) (Auto) 15.6 % Monocytes (%) (Auto) 5.2 % Eosinophils (%) (Auto) 1.9 % Basophils (%) (Auto) 0.3 % Neutrophils # (Auto) 7.84 1.4-6.5 K/uL Lymphocytes # (Auto) 1.59 1.2-3.4 K/uL Monocytes # (Auto) 0.53 0.11-0.59 K/uL Eosinophils # (Auto) 0.19 0-0.5 K/uL Basophils # (Auto) 0.03 0-0.2 K/uL RDW Standard Deviation 40.0 36.4-46.3 fL RDW Coefficient of Variation 12.3 11.5-14.5 % Immature Granulocyte % (Auto) 0.3 % Immature Granulocyte # (Auto) 0.03 0.00-0.02 K/uL Sodium Level 141 136-145 mmol/L Potassium Level 3.7 3.5-5.1 mmol/L Chloride Level 107 98-107 mmol/L Carbon Dioxide Level 26 21-32 mmol/L Anion Gap 8.0 3-11 mmol/L Blood Urea Nitrogen 11 7-18 mg/dl Creatinine 0.77 0.60-1.20 mg/dl Est Creatinine Clear Calc Drug Dose 130.2 ml/min Estimated GFR () 124.4 Estimated GFR (Non- 107.3 BUN/Creatinine Ratio 13.8 10-20 Random Glucose 162 70-99 mg/dl Calcium Level 8.6 8.5-10.1 mg/dl Magnesium Level 2.0 1.8-2.4 mg/dl Total Bilirubin 0.4 0.2-1 mg/dl Aspartate Amino Transf (AST/SGOT) 91 15-37 U/L Alanine Aminotransferase (ALT/SGPT) 135 12-78 U/L Alkaline Phosphatase 80 45-117 U/L Troponin I < 0.015 0-0.045 ng/ml Total Protein 6.6 6.4-8.2 gm/dl Albumin 3.4 3.4-5.0 gm/dl Globulin 3.2 2.5-4.0 gm/dl Albumin/Globulin Ratio 1.1 0.9-2 Amylase Level 32 25-115 U/L Lipase 96 73-393 U/L Human Chorionic Gonadotropin, Qual NEG NEG Urine Color YELLOW Urine Appearance CLEAR CLEAR Urine pH 8.0 4.5-7.5 Urine Specific [place] 1.021 1.000-1.030 Urine Protein NEG NEG Urine Glucose (UA) TRACE NEG Urine Ketones NEG NEG Urine Occult Blood NEG NEG Urine Nitrite NEG NEG Urine Bilirubin NEG NEG Urine Urobilinogen NEG NEG Urine Leukocyte Esterase NEG NEG Urine Opiates Screen POS NEG Urine Methadone, Qualitative NEG NEG Urine Barbiturates NEG NEG Urine Phencyclidine (PCP) Level NEG NEG Ur Amphetamine/Methamphetamine NEG NEG MDMA (Ecstasy) Screen NEG NEG Urine Benzodiazepines Screen NEG NEG Urine Cocaine Metabolite NEG NEG Urine Marijuana (THC) NEG NEG Diagnostic Radiology DIAGNOSTIC IMAGING [~ rep ct add3]] ABDOMINAL ULTRASOUND, RIGHT UPPER QUADRANT HISTORY: Pain. Nausea. Epigastric and RUQ pain, emesis, nausea, diarrhea. COMPARISON: None. FINDINGS: Pancreas: The pancreas demonstrates a normal echotexture. Liver: Fatty infiltration. Upper lobe nodule] of unchanged in the prior exam. This may represent a regional area of sparing versus hepatic cyst. Gallbladder: Prior cholecystectomy CBD: 4 mm Right kidney: Negative for hydronephrosis IMPRESSION: Fatty infiltration of liver. Otherwise negative study post cholecystectomy EKG HR normal, sinus rhythm, no acute ischemia or infarct Impression Assessment and Plan 26 year old female with history of IBS presenting with abdominal pain and vomiting with blood. ABDOMINAL PAIN POSSIBLE UPPER GI BLEED HISTORY OF IBS - Hg q6h - Protonix Drip [id number] NPO GI consulted - PRN Morphine ELEVATED LFTS - baseline AST/ALT 29/43 now higher - monitor LFTs SMOKING - offered Nicotine patch, patient declined DVT PROPHYLAXIS SCDs until GI bleed ruled out Full code per patient Disposition anticipated d/c home when cleared by GI ff up with Dr. Soliz for PCP RN at bedside during entire encounter patient agreeable and comfortable with plan of care VTE Prophylaxis VTE Risk Assessment Done? Y/N: Yes Risk Level: Moderate Given or contraindicated: SCD's
[2017-02-18 02:10] VITALS: BP 111/76; PULSE 64; TEMP 36.5; O2SAT 93; Ht 160 cm; Wt 105.4 kg
[2017-02-18] MEDS ORDERED: PANTOprazole INJ 80 MG in DEXTROSE 5% 100ML IV STA (02:17)
[2017-02-18] MEDS: PANTOprazole INJ 40 MG in DEXTROSE 5% 100ML IV SCH ×2 (02:30→07:49)
[2017-02-18] MEDS: D5W AND NSS 1,000 ML IV SCH ×2 (02:46→11:16)
[2017-02-18] MEDS: MoRPHine SULFATE 4 MG/ML 1 ML CARP\\VIAL IV PRN ×2 (03:06→10:03)
[2017-02-18 03:29] LABS: HEMATOCRIT 38.7 % (37-47)
[2017-02-18 04:55] VITALS: BP 103/65; PULSE 61; TEMP 36.6; O2SAT 92
[2017-02-18 07:24] VITALS: BP 128/71; PULSE 78; TEMP 36.9; O2SAT 93
--- NOTE | 2017-02-18 08:06 | DIAGNOSTIC IMAGING REPORT ---
ABDOMEN AND PELVIS CT WITH IV CONTRAST CT DOSE: 889.08 mGy.cm HISTORY: Hematemesis, hematochezia, generalized abdominal pain TECHNIQUE: Multiaxial CT images of the abdomen and pelvis were performed following the use of intravenous contrast. COMPARISON STUDY: Abdomen and pelvis CT 03/29/2016. FINDINGS: Mild dependent changes seen at the lung bases. Stable 3 mm nodule within the left lower lobe on image 11. Hepatic steatosis. Cholecystectomy. 1.3 cm enhancing lesion within the right hepatic lobe. This is stable in size compared to the prior study. The spleen, adrenal glands, pancreas, and kidneys are unremarkable. The bladder, uterus, bilateral adnexa are within normal limits. No bowel wall thickening or obstruction. Normal appendix. IMPRESSION: 1. No bowel wall thickening or obstruction. 2. Normal appendix. 3. Stable 1.3 cm enhancing lesion within the right hepatic lobe. This may represent a flash filling hemangioma. 4. Hepatic steatosis. 5. Stable 3 mm nodule within the left lower lobe. This is of doubtful clinical significance given the patient's age. Electronically signed by: Wesley Houston M.D. 02/18/2017 8:05 AM Dictated Date/Time: 02/18/2017 8:01 AM
[2017-02-18 10:17] LABS: HEMATOCRIT 38.4 % (37-47)
[2017-02-18 10:41] LABS: BUN/CREATININE RATIO 10.3 (10-20); CREATININE 0.76 mg/dl (0.60-1.20); POTASSIUM 3.8 mmol/L (3.5-5.1)
[2017-02-18 11:15] VITALS: BP 119/77; PULSE 56; TEMP 37; O2SAT 98
--- NOTE | 2017-02-18 12:03 | Gastrointestinal Consultation ---
Gastrointestinal Consultation Date of Consultation: February 18, 2017 Attending Physician: Montrell Duncan Consulting Physician: Tl Cummings Reason for Consultation: Possible upper GI bleed History of Present Illness Patient is a 26 year old female w PMHx of s/p cholecystectomy, bronchitis, who is currently admitted for symptom so n/v, abd pain, reports of blood tinged emesis and stools. I had previously seen pt in GI clinic for c/o RUQ/epigastric abd pain. She had GES which was normal. Previous EGDs in 2008, 2015, most recently 09/2016 - all also unremarkable results. She has persistent abd pain which likely is functional in nature. She takes Tramadol for this, and recently also started on Voltaren to reduce Tramadol use. Yesterday she came to ED w c/o abd pain, n/v w about a teaspoon of blood in emesis and also some blood in stool as well. Was discharged after noted labs are normal. She returned w persistent abd pain, n/v thus admitted. Her H/H had been normal. Hgb 14. CMP also unremarkable, though LFTs are more increased than baseline: Tbili 0.4, AST 191, AST 135, AP 80, Lipase 96. She had abd u/s and CT abd/pelvis - besides finding of hepatic steatosis, flash hemangioma, otherwise unremarkable. She hasn 't had any more vomiting or blood in stools since admission. She denies any sick contact, new meds, constipation/diarrhea. Past Medical/Surgical History Medical Problems: (1) Abdominal pain Status: Acute (2) Flank pain Status: Acute (3) Headache Status: Acute (4) Hematemesis Status: Acute (5) Right upper quadrant abdominal pain Status: Acute (6) UTI (urinary tract infection) Status: Acute (7) Vomiting Status: Acute (8) Wrist sprain Status: Acute Past Medical History: See HPI Past Surgical History: Cholecystectomy Family History Diabetes mellitus FH: cancer FH: gallbladder disease FH: hypertension FH: lung disease FH: seizures Kidney disease Social History Smoking Status: Current Every Day Smoker Alcohol Use: occasionally Marital Status: single Occupation Status: employed Allergies Coded Allergies: Penicillins (Unverified Allergy, Mild, RASH, 02/17/17) Current Medications Home Meds and Scripts Medications Dose Route/Sig Max Daily Dose Days Date Category Dose Instructions Roxicodone Ir (Oxycodone HCl) 5 Mg Tab 1 Tab PO Q6H PRN 02/17/17 Rx For Initial Treatment Ultram (Tramadol HCl) 50 Mg Tab 50 Mg PO Q6H PRN 01/15/17 Reported Zofran (Ondansetron Hcl) 4 Mg Tab 4 Mg PO Q8 PRN 01/15/17 Reported Review of Systems Constitutional: No chills, No fever Respiratory: No cough, No shortness of breath Cardiac: No chest pain, No edema Abdomen: + GI bleeding, + nausea, + pain, + see HPI, + vomiting Physical Exam Date Time Temp Pulse Resp B/P Pulse Ox O2 Delivery O2 Flow Rate FiO2 02/18/17 11:15 37.0 56 18 119/77 98 Room Air 02/18/17 08:00 Room Air 02/18/17 07:24 36.9 78 18 128/71 93 Room Air 02/18/17 04:55 36.6 61 20 103/65 92 Room Air 02/18/17 02:10 36.5 64 20 111/76 93 Room Air 02/18/17 02:00 70 16 142/75 97 02/18/17 01:34 70 16 142/75 97 Room Air 02/17/17 23:39 72 20 135/83 95 Room Air 02/17/17 22:43 66 20 144/86 95 Room Air 02/17/17 21:30 67 18 114/77 96 Room Air 02/17/17 19:33 36.7 86 18 147/87 97 Room Air General Appearance: WD/WN, no apparent distress, + obese Eyes: normal inspection, PERRL, EOMI Neck: supple, no JVD, trachea midline Respiratory/Chest: normal breath sounds, no respiratory distress, no accessory muscle use Cardiovascular: regular rate, rhythm, no gallop, no murmur Abdomen: normal bowel sounds, soft, + tenderness (epigastric) Neurologic/Psych: alert, normal mood/affect, oriented x 3 Skin: normal color, no jaundice, no rash Laboratory Results Last 24 Hours Test 02/17/17 20:49 02/17/17 22:16 02/18/17 03:10 02/18/17 09:40 White Blood Count 10.21 K/uL Red Blood Count 4.47 M/uL Hemoglobin 14.1 g/dL 13.4 g/dL 13.2 g/dL Hematocrit 40.0 % 38.7 % 38.4 % Mean Corpuscular Volume 89.5 fL Mean Corpuscular Hemoglobin 31.5 pg Mean Corpuscular Hemoglobin Concent 35.3 g/dl Platelet Count 159 K/uL Mean Platelet Volume 9.8 fL Neutrophils (%) (Auto) 76.7 % Lymphocytes (%) (Auto) 15.6 % Monocytes (%) (Auto) 5.2 % Eosinophils (%) (Auto) 1.9 % Basophils (%) (Auto) 0.3 % Neutrophils # (Auto) 7.84 K/uL Lymphocytes # (Auto) 1.59 K/uL Monocytes # (Auto) 0.53 K/uL Eosinophils # (Auto) 0.19 K/uL Basophils # (Auto) 0.03 K/uL RDW Standard Deviation 40.0 fL RDW Coefficient of Variation 12.3 % Immature Granulocyte % (Auto) 0.3 % Immature Granulocyte # (Auto) 0.03 K/uL Sodium Level 141 mmol/L 141 mmol/L Potassium Level 3.7 mmol/L 3.8 mmol/L Chloride Level 107 mmol/L 108 mmol/L Carbon Dioxide Level 26 mmol/L 27 mmol/L Anion Gap 8.0 mmol/L 6.0 mmol/L Blood Urea Nitrogen 11 mg/dl 8 mg/dl Creatinine 0.77 mg/dl 0.76 mg/dl Est Creatinine Clear Calc Drug Dose 130.2 ml/min 131.5 ml/min Estimated GFR () 124.4 126.4 Estimated GFR (Non- 107.3 109.0 BUN/Creatinine Ratio 13.8 10.3 Random Glucose 162 mg/dl 141 mg/dl Calcium Level 8.6 mg/dl 8.0 mg/dl Magnesium Level 2.0 mg/dl Total Bilirubin 0.4 mg/dl 0.7 mg/dl Aspartate Amino Transf (AST/SGOT) 91 U/L 87 U/L Alanine Aminotransferase (ALT/SGPT) 135 U/L 145 U/L Alkaline Phosphatase 80 U/L 76 U/L Troponin I < 0.015 ng/ml Total Protein 6.6 gm/dl 6.1 gm/dl Albumin 3.4 gm/dl 3.2 gm/dl Globulin 3.2 gm/dl Albumin/Globulin Ratio 1.1 Amylase Level 32 U/L Lipase 96 U/L Human Chorionic Gonadotropin, Qual NEG Urine Color YELLOW Urine Appearance CLEAR Urine pH 8.0 Urine Specific [place] 1.021 Urine Protein NEG Urine Glucose (UA) TRACE Urine Ketones NEG Urine Occult Blood NEG Urine Nitrite NEG Urine Bilirubin NEG Urine Urobilinogen NEG Urine Leukocyte Esterase NEG Urine Opiates Screen POS Urine Methadone, Qualitative NEG Urine Barbiturates NEG Urine Phencyclidine (PCP) Level NEG Ur Amphetamine/Methamphetamine NEG MDMA (Ecstasy) Screen NEG Urine Benzodiazepines Screen NEG Urine Cocaine Metabolite NEG Urine Marijuana (THC) NEG Direct Bilirubin 0.1 mg/dl Impression Patient is a 26 year old female w chronic epigastric area, multiple EGDs in the past and GES w/o findings to explain etiology of her symptoms. Likely suspected to be functional abd pain. She is s/p lap cholecystectomy, has hepatic steatosis. Her LFTs are mildly elevated at baseline, at this admission slightly increased. CT abd/pelvis, u/s unremarkable. She is currently admitted for persistent abd pain, n/v w bloody emesis about 1 teaspoon w normal H/H. Also reported some blood in stools. Differential diagnoses include: PUD, Sandro's lesion from vomiting, hemorrhoidal bleed. Plan - DC PPI gtt, change to Protonix 40mg po BID - Ok to start CL diet, advance as tolerated - Obtain stool cx and Cdiff if having diarrhea - Trial Bentyl 20mg BID - Monitor LFTs - Symptomatic management, no contraindication for DC from GI standpoint if n/v, abd pain controlled. Will arrange for repeat EGD/Colonoscopy in outpt setting. Attg addendum: I interviewed and examined pt, reviewed chart and labs. Pt with chronic abdominal pain and h/o mult ER visits for same. She was seen in ER on and 02/18 for abd pain, small vol hematemesis, and small vol rectal bleed. Her VS and HGB are unchanged. She is morbidly obese, and her weight is unchanged. Her imaging is unremarkable. her LFT's are mildly increased, and appear to be fluctuating. Chronic abd pain, small vol hematemesis. Her symptoms are unchanged from baseline, and she has no alarm symptoms. Her bleeding appears small volume, and is likely outlet bleeding or related to vomiting. She likely has functional pain; biliary SOD may be considered, given mild change in LFTs, but this is unlikely. She is ok for discharge. Would give pt trial of Bentyl; can arrange for outpt scopes to eval bleeding.
[2017-02-18] MEDS ORDERED: DICYCLOMINE HCL 20 MG TAB PO ONE (12:45)
[2017-02-18 15:05] VITALS: BP 128/76; PULSE 67; TEMP 36.4; O2SAT 95
[2017-02-18] MEDS ORDERED: BNT20 PO (15:15)
[2017-02-18] MEDS ORDERED: PANT40TA PO (15:15)
--- NOTE | 2017-02-18 15:17 | Discharge Instructions ---
Discharge Instructions Date of Service February 18, 2017. Admission Reason for Admission: Gi Bleed Discharge Discharge Diagnosis / Problem: gi bleed? abdominal pain Discharge Goals Goal(s): Decrease discomfort, Improve function Activity Recommendations Activity Limitations: resume your previous activity . Instructions / Follow-Up Instructions / Follow-Up FOLLOWUP WITH FAMILY DOCTOR ON February AT 10:45AM FOLLOWUP WITH GI SCHEDULED. Current Hospital Diet Patient's current hospital diet: Clear Liquid Diet Discharge Diet Recommended Diet: AHA Diet (Heart Healthy) (TO BE GENTLE WITH DIET FOR COUPLE OF DAYS) Pending Studies Studies pending at discharge: no Medical Emergencies . Who to Call and When: Medical Emergencies: If at any time you feel your situation is an emergency, please call 911 immediately. . Non-Emergent Contact Non-Emergency issues call your: Primary Care Provider . . "Provider Documentation" section prepared by Govind Akbar. . VTE Core Measure Inpt VTE Proph given/why not?: SCD's
[2017-02-18 15:24] VITALS: BP 128/76; PULSE 67; TEMP 36.4; O2SAT 95
--- NOTE | 2017-02-18 18:40 | Progress Note ---
Internal Med Progress Note Date of Service: February 18, 2017. Provider Documentation: SUBJECTIVE: resting comfortably says her abdominal pain is same but when said GI not going to do any procedures inpatient she wanted to go home and f/u as outpatient afebrile hemodynamics stable OBJECTIVE: Vital Signs-as noted below Exam: General-alert and awake and oriented. Obese ENT-normal hearing Neck-no neck masses Lungs-cta b/l no wheezing or crackles Heart-s1 and s2 heard irregular no murmurs Abdomen-soft bowel sounds present non tender no distension Extremities- no edema no erythema Neuro-alert and awake moves extremities Lab data as noted below. ASSESSMENT & PLAN: 26 year old female with history of IBS presenting with abdominal pain and vomiting with blood. ABDOMINAL PAIN POSSIBLE UPPER GI BLEED HISTORY OF IBS hb stable started on dicyclomine and ppi Gi to followup as outpatient for egd/colonoscopy. discharged home ELEVATED LFTS baseline AST/ALT 29/43 now higher f/u as outpatient SMOKING offered Nicotine patch, patient declined discharged home Vital Signs: Date Time Temp Pulse Resp B/P Pulse Ox O2 Delivery O2 Flow Rate FiO2 02/18/17 15:24 36.4 67 18 95 Room Air 02/18/17 15:05 36.4 67 18 128/76 95 Room Air 02/18/17 12:00 Room Air 02/18/17 11:15 37.0 56 18 119/77 98 Room Air 02/18/17 08:00 Room Air 02/18/17 07:24 36.9 78 18 128/71 93 Room Air 02/18/17 04:55 36.6 61 20 103/65 92 Room Air 02/18/17 02:10 36.5 64 20 111/76 93 Room Air 02/18/17 02:00 70 16 142/75 97 02/18/17 01:34 70 16 142/75 97 Room Air 02/17/17 23:39 72 20 135/83 95 Room Air 02/17/17 22:43 66 20 144/86 95 Room Air 02/17/17 21:30 67 18 114/77 96 Room Air 02/17/17 19:33 36.7 86 18 147/87 97 Room Air Lab Results: Results Past 24 Hours Test 02/17/17 20:49 02/17/17 22:16 02/18/17 03:10 02/18/17 09:40 Range/Units White Blood Count 10.21 4.8-10.8 K/uL Red Blood Count 4.47 4.2-5.4 M/uL Hemoglobin 14.1 13.4 13.2 12.0-16.0 g/dL Hematocrit 40.0 38.7 38.4 37-47 % Mean Corpuscular Volume 89.5 80-100 fL Mean Corpuscular Hemoglobin 31.5 25-34 pg Mean Corpuscular Hemoglobin Concent 35.3 32-36 g/dl Platelet Count 159 130-400 K/uL Mean Platelet Volume 9.8 7.4-10.4 fL Neutrophils (%) (Auto) 76.7 % Lymphocytes (%) (Auto) 15.6 % Monocytes (%) (Auto) 5.2 % Eosinophils (%) (Auto) 1.9 % Basophils (%) (Auto) 0.3 % Neutrophils # (Auto) 7.84 1.4-6.5 K/uL Lymphocytes # (Auto) 1.59 1.2-3.4 K/uL Monocytes # (Auto) 0.53 0.11-0.59 K/uL Eosinophils # (Auto) 0.19 0-0.5 K/uL Basophils # (Auto) 0.03 0-0.2 K/uL RDW Standard Deviation 40.0 36.4-46.3 fL RDW Coefficient of Variation 12.3 11.5-14.5 % Immature Granulocyte % (Auto) 0.3 % Immature Granulocyte # (Auto) 0.03 0.00-0.02 K/uL Sodium Level 141 141 136-145 mmol/L Potassium Level 3.7 3.8 3.5-5.1 mmol/L Chloride Level 107 108 98-107 mmol/L Carbon Dioxide Level 26 27 21-32 mmol/L Anion Gap 8.0 6.0 3-11 mmol/L Blood Urea Nitrogen 11 8 7-18 mg/dl Creatinine 0.77 0.76 0.60-1.20 mg/dl Est Creatinine Clear Calc Drug Dose 130.2 131.5 ml/min Estimated GFR () 124.4 126.4 Estimated GFR (Non- 107.3 109.0 BUN/Creatinine Ratio 13.8 10.3 10-20 Random Glucose 162 141 70-99 mg/dl Calcium Level 8.6 8.0 8.5-10.1 mg/dl Magnesium Level 2.0 1.8-2.4 mg/dl Total Bilirubin 0.4 0.7 0.2-1 mg/dl Aspartate Amino Transf (AST/SGOT) 91 87 15-37 U/L Alanine Aminotransferase (ALT/SGPT) 135 145 12-78 U/L Alkaline Phosphatase 80 76 45-117 U/L Troponin I < 0.015 0-0.045 ng/ml Total Protein 6.6 6.1 6.4-8.2 gm/dl Albumin 3.4 3.2 3.4-5.0 gm/dl Globulin 3.2 2.5-4.0 gm/dl Albumin/Globulin Ratio 1.1 0.9-2 Amylase Level 32 25-115 U/L Lipase 96 73-393 U/L Human Chorionic Gonadotropin, Qual NEG NEG Urine Color YELLOW Urine Appearance CLEAR CLEAR Urine pH 8.0 4.5-7.5 Urine Specific [place] 1.021 1.000-1.030 Urine Protein NEG NEG Urine Glucose (UA) TRACE NEG Urine Ketones NEG NEG Urine Occult Blood NEG NEG Urine Nitrite NEG NEG Urine Bilirubin NEG NEG Urine Urobilinogen NEG NEG Urine Leukocyte Esterase NEG NEG Urine Opiates Screen POS NEG Urine Methadone, Qualitative NEG NEG Urine Barbiturates NEG NEG Urine Phencyclidine (PCP) Level NEG NEG Ur Amphetamine/Methamphetamine NEG NEG MDMA (Ecstasy) Screen NEG NEG Urine Benzodiazepines Screen NEG NEG Urine Cocaine Metabolite NEG NEG Urine Marijuana (THC) NEG NEG Direct Bilirubin 0.1 0-0.2 mg/dl
--- NOTE | 2017-02-18 18:55 | Discharge Summary ---
Discharge Summary Date of Service February 18, 2017. Discharge Summary Admission Date: February 18, 2017 at 01:35 Discharge Date: February 18, 2017 Discharge Disposition: Home Principal Diagnosis: ABDOMINAL PAIN' GI BLEED? Secondary Diagnoses/Problems: 1) Acute bronchitis IBS Procedures: ABDOMINAL US: Fatty infiltration of liver. Otherwise negative study post cholecystectomy CT ABD/PELVIS: 1. No bowel wall thickening or obstruction. 2. Normal appendix. 3. Stable 1.3 cm enhancing lesion within the right hepatic lobe. This may represent a flash filling hemangioma. 4. Hepatic steatosis. 5. Stable 3 mm nodule within the left lower lobe. This is of doubtful clinical significance given the patient's age. Consultations: GI Medication Reconciliation New Medications: Pantoprazole (Protonix) 40 Mg Tab 40 MG PO DAILY, #30 TAB 1 Refill Dicyclomine HCl (Dicyclomine HCl) 20 Mg Tab 20 MG PO BID, #30 TAB Continued Medications: Ondansetron Hcl (Zofran) 4 Mg Tab 4 MG PO Q8 PRN for Nausea, TAB Oxycodone Ir (Roxicodone Ir) 5 Mg Tab 1 TAB PO Q6H PRN for Pain, #10 TAB For Initial Treatment Tramadol (Ultram) 50 Mg Tab 50 MG PO Q6H PRN for Pain, TAB Admission Information HPI (per Admitting provider): 26 year old female with history of IBS presenting with abdominal pain and vomiting with blood. Patient follows with Dr. Soliz for Primary Care and [facility]. Patient states she has been having chronic abdominal pain since her cholecystectomy last year. She has had extensive work up for her abdominal pain including GES and EGD recently which were unrevealing. Per patient, pain is relieved with Tramadol. Today, patient was experiencing persistent nausea and vomiting at least 4 times. With vomiting, she noticed bright red blood, about 1 teaspoon during each episode. Last night, she also noticed blood tinged stools. She then presented to the ED this morning. Abdominal US showed fatty liver and her Hg was 14.6. She was discharged home but returned this evening due to persistence of symptoms. Her Hg is still at 14.1 On exam, patient resting comfortably in bed, states Morphine alleviates her pain. Otherwise, no other symptoms. Physical Exam (per Admitting): General Appearance: WD/WN, no apparent distress Head: normocephalic, atraumatic Eyes: normal inspection, PERRL, EOMI, sclerae normal ENT: normal ENT inspection, hearing grossly normal, pharynx normal Neck: supple, no adenopathy, thyroid normal, no JVD, trachea midline Respiratory/Chest: chest non-tender, lungs clear, normal breath sounds, no respiratory distress, no accessory muscle use Cardiovascular: regular rate, rhythm, no edema, no gallop, no JVD, no murmur Abdomen/GI: normal bowel sounds, non tender, soft, no organomegaly Back: normal inspection, no CVA tenderness Extremities/Musculoskelatal: normal inspection, no calf tenderness, normal capillary refill, no pedal edema, normal range of motion Neurologic/Psych: leadership development manager II-XII nml as tested, no motor/sensory deficits, alert , normal mood/affect, normal reflexes, oriented x 3 Skin: normal color, warm/dry, no rash Lymphatic: no adenopathy Hospital Course 26 year old female with history of IBS presenting with abdominal pain and vomiting with blood. ABDOMINAL PAIN POSSIBLE UPPER GI BLEED HISTORY OF IBS hb stable started on dicyclomine and ppi Gi to followup as outpatient for egd/colonoscopy. discharged home ELEVATED LFTS baseline AST/ALT 29/43 now higher f/u as outpatient SMOKING offered Nicotine patch, patient declined discharged home Total time spent on discharge = 35MINUTES This includes examination of the patient, discharge planning, medication reconciliation, and communication with other providers. Discharge Instructions Discharge Instructions Date of Service February 18, 2017. Admission Reason for Admission: Gi Bleed Discharge Discharge Diagnosis / Problem: gi bleed? abdominal pain Discharge Goals Goal(s): Decrease discomfort, Improve function Activity Recommendations Activity Limitations: resume your previous activity . Instructions / Follow-Up Instructions / Follow-Up FOLLOWUP WITH FAMILY DOCTOR ON February AT 10:45AM FOLLOWUP WITH GI SCHEDULED. Current Hospital Diet Patient's current hospital diet: Clear Liquid Diet Discharge Diet Recommended Diet: AHA Diet (Heart Healthy) (TO BE GENTLE WITH DIET FOR COUPLE OF DAYS) Pending Studies Studies pending at discharge: no Medical Emergencies . Who to Call and When: Medical Emergencies: If at any time you feel your situation is an emergency, please call 911 immediately. . Non-Emergent Contact Non-Emergency issues call your: Primary Care Provider . . "Provider Documentation" section prepared by Govind Akbar. . VTE Core Measure Inpt VTE Proph given/why not?: SCD's
[2017-02-18] MEDS ORDERED: PANTOprazole INJ 40 MG in SYRINGE 0 ML IV SCH (21:00)
[2017-02-18] MEDS ORDERED: DICYCLOMINE HCL 20 MG TAB PO SCH (21:00)
[2017-02-21 01:19] LABS: COD UR NEGATIVE NG/ML (CUTOFF=50); HYDROCOD UR NEGATIVE NG/ML (CUTOFF=50); HYDROMOR UR NEGATIVE NG/ML (CUTOFF=50); MORPHINE UR 1660 NG/ML (CUTOFF=50); NORHYDROCODONE CONF UR NEGATIVE NG/ML (CUTOFF=50); OXYMORPH UR NEGATIVE NG/ML (CUTOFF=50)
== END 2017-02-18 15:44 | disposition home or self-care (01) | DRG 378 ==
LOC: ENRESERVTM → ENRESERVDT → C.EDB 19:28 → C.MED 02-18 01:35
PROVIDERS: ADMIT Internal Medicine; ATTEND Internal Medicine
DX: K92.0 Hematemesis (principal); Z68.41 Body mass index [BMI] 40.0-44.9, adult; K92.1 Melena; G89.29 Other chronic pain; R10.13 Epigastric pain; R94.5 Abnormal results of liver function studies; K58.9 Irritable bowel syndrome, unspecified; K76.0 Fatty (change of) liver, not elsewhere classified; D18.00 Hemangioma unspecified site; F17.200 Nicotine dependence, unspecified, uncomplicated; E66.01 Morbid (severe) obesity due to excess calories; Z90.49 Acquired absence of other specified parts of digestive tract; Z79.891 Long term (current) use of opiate analgesic; Z79.899 Other long term (current) drug therapy

== ENCOUNTER 2017-02-19 23:09 | Emergency (ER) | payer OTHER ==
[~2017-02-19] VITALS: Ht 160 cm; Wt 105.5 kg
[~2017-02-19 23:09] MED LIST changes: +BNT20 PO; +PANT40TA PO
[2017-02-19 23:16] VITALS: TEMP 37; Ht 160 cm; Wt 105.5 kg
--- NOTE | 2017-02-19 23:49 | EMERGENCY ROOM VISIT NOTE ---
History Report prepared by Delroy: Lion Acevedo Under the Supervision of: Dr. Sandy Landry D.O. First contact with patient: 23:32 Chief Complaint: ABDOMINAL PAIN Stated Complaint: SEVERE PAIN IN STOMACH,NAUSEA Nursing Triage Summary: Pt reports generalized abdominal pain since having gallbladder removed in May. Pt was here twice this week and admitted. Pt continues with pain and nausea. History of Present Illness The patient is a 26 year old female who presents to the Emergency Room with complaints of persistent abdominal pain that worsened today. The patient had a cholecystectomy 9 months ago. The patient has had chronic abdominal pain since the surgery. The patient has recently been admitted twice for similar symptoms. She has been following up with her family physician and GI doctor for the discomfort, has had scopes in the past, and has another scope and colonoscopy scheduled next month. When the patient was discharged recently, she was given Oxycodone to take at home. The patient states she took 1 tablet today that she thinks is 5 mg. She took 2 tablets yesterday, but feels that it is not helping resolve her symptoms so she only took the one tablet today. The patient also states she has not been able to eat much because of the pain. Today, she ate eggs, rice, and grilled cheese. However, she felt nauseated after eating. The patient complains of nausea at this time. She denies urinary symptoms or abnormal bowel movements at this time. Source of History: patient Onset: today Position: abdomen Timing: worsening, other (persistent) Associated Symptoms: + nausea, No urinary symptoms Note: Other associated symptoms: decreased appetite Denies: abnormal bowel movements. Review of Systems See HPI for pertinent positives & negatives. A total of 10 systems reviewed and were otherwise negative. Past Medical & Surgical Medical Problems: (1) Acute bronchitis (2) Cigarette nicotine dependence, uncomplicated (3) Depressive Disorder Nec (4) Esophageal Reflux (5) GI bleed (6) Pneumonia, Organism Nos (7) Tobacco use disorder Surgical Problems: (1) History of arthroscopy of shoulder (2) History of cholecystectomy Family History Diabetes mellitus FH: cancer FH: gallbladder disease FH: hypertension FH: lung disease FH: seizures Kidney disease Social History Smoking Status: Current Every Day Smoker Alcohol Use: occasionally Marital Status: single Occupation Status: employed Current/Historical Medications Scheduled PRN Ondansetron Hcl (Zofran), 4 MG PO Q8 PRN for Nausea Oxycodone Ir (Roxicodone Ir), 1 TAB PO Q6H PRN for Pain Oxycodone Ir (Roxicodone Ir), 1-2 TAB PO Q4H PRN for Severe Pain Tramadol (Ultram), 50 MG PO Q6H PRN for Pain Allergies Coded Allergies: Penicillins (Unverified Allergy, Mild, RASH, 02/17/17) Physical Exam Vital Signs Date Time Temp Pulse Resp B/P Pulse Ox O2 Delivery O2 Flow Rate FiO2 02/20/17 02:09 68 16 110/75 97 Room Air 02/20/17 01:31 63 16 110/82 92 02/20/17 00:23 76 16 132/75 94 Room Air 02/19/17 23:16 37.0 86 18 148/111 96 Room Air Physical Exam HEENT: Head - normocephalic and atraumatic Pupils are equal, round, and reactive to light. Extraocular eye muscles are intact, and sclera are anicteric. Nose - moist nasal mucosa without discharge. Mouth - moist buccal mucosa. Oropharynx is nonerythematous and there is no tonsillar exudate or edema noted. Neck: Supple; no JVD, nuchal rigidity, cervical lymphadenopathy. Heart: Regular rate and rhythm. There is a normal S1 and S2 with no murmurs, clicks, or gallops appreciated. Lungs: Clear to auscultation bilaterally with no wheezes, rales, or rhonchi. Abdomen: Soft, epigastric abdominal pain on palpation, nondistended, with good bowel sounds. There are no palpable pulsatile masses or hepatosplenomegaly. There is no guarding, rigidity, or rebound noted. Extremities: No evidence of cyanosis, clubbing, or edema. There are easily palpable peripheral pulses. Skin: warm and dry with good turgor and no rashes. Medical Decision & Procedures Laboratory Results 02/19/17 23:37 Red Blood Count 4.64, Mean Corpuscular Volume 87.5, Mean Corpuscular Hemoglobin 31.0, Mean Corpuscular Hemoglobin Concent 35.5, Mean Platelet Volume 9.9, Neutrophils (%) (Auto) 71.6, Lymphocytes (%) (Auto) 18.0, Monocytes (%) (Auto) 8.0, Eosinophils (%) (Auto) 1.6, Basophils (%) (Auto) 0.3, Neutrophils # (Auto) 7.88, Lymphocytes # (Auto) 1.98, Monocytes # (Auto) 0.88, Eosinophils # (Auto) 0.18, Basophils # (Auto) 0.03 02/19/17 23:37 Test 02/19/17 23:37 White Blood Count 11.00 K/uL (4.8-10.8) Red Blood Count 4.64 M/uL (4.2-5.4) Hemoglobin 14.4 g/dL (12.0-16.0) Hematocrit 40.6 % (37-47) Mean Corpuscular Volume 87.5 fL (80-100) Mean Corpuscular Hemoglobin 31.0 pg (25-34) Mean Corpuscular Hemoglobin Concent 35.5 g/dl (32-36) Platelet Count 187 K/uL (130-400) Mean Platelet Volume 9.9 fL (7.4-10.4) Neutrophils (%) (Auto) 71.6 % Lymphocytes (%) (Auto) 18.0 % Monocytes (%) (Auto) 8.0 % Eosinophils (%) (Auto) 1.6 % Basophils (%) (Auto) 0.3 % Neutrophils # (Auto) 7.88 K/uL (1.4-6.5) Lymphocytes # (Auto) 1.98 K/uL (1.2-3.4) Monocytes # (Auto) 0.88 K/uL (0.11-0.59) Eosinophils # (Auto) 0.18 K/uL (0-0.5) Basophils # (Auto) 0.03 K/uL (0-0.2) RDW Standard Deviation 38.7 fL (36.4-46.3) RDW Coefficient of Variation 12.1 % (11.5-14.5) Immature Granulocyte % (Auto) 0.5 % Immature Granulocyte # (Auto) 0.05 K/uL (0.00-0.02) Urine Color YELLOW Urine Appearance CLEAR (CLEAR) Urine pH 6.0 (4.5-7.5) Urine Specific [place] 1.013 (1.000-1.030) Urine Protein NEG (NEG) Urine Glucose (UA) NEG (NEG) Urine Ketones NEG (NEG) Urine Occult Blood NEG (NEG) Urine Nitrite NEG (NEG) Urine Bilirubin NEG (NEG) Urine Urobilinogen NEG (NEG) Urine Leukocyte Esterase NEG (NEG) Anion Gap 8.0 mmol/L (3-11) Est Creatinine Clear Calc Drug Dose 126.5 ml/min Estimated GFR () 120.6 Estimated GFR (Non- 104.0 BUN/Creatinine Ratio 14.3 (10-20) Calcium Level 9.0 mg/dl (8.5-10.1) Total Bilirubin 0.3 mg/dl (0.2-1) Direct Bilirubin < 0.1 mg/dl (0-0.2) Aspartate Amino Transf (AST/SGOT) 31 U/L (15-37) Alanine Aminotransferase (ALT/SGPT) 104 U/L (12-78) Alkaline Phosphatase 92 U/L (45-117) Total Protein 7.2 gm/dl (6.4-8.2) Albumin 3.8 gm/dl (3.4-5.0) Lipase 161 U/L (73-393) Laboratory results per my review. Medications Administered Medications (Trade) Dose Ordered Sig/Gamal Route Start Time Stop Time Status Last Admin Dose Admin Ondansetron HCl (Zofran Inj) 4 mg NOW STAT IV 02/19/17 23:52 02/19/17 23:53 DC 02/20/17 00:21 4 MG Ketorolac Tromethamine (Toradol Inj) 30 mg NOW STAT IV 02/19/17 23:52 02/19/17 23:53 DC 02/20/17 00:23 30 MG Hydromorphone HCl (Dilaudid Inj) 2 mg NOW STAT IV 02/20/17 00:50 02/20/17 00:52 DC 02/20/17 00:56 2 MG Procedure Toradol Inj IV Zofran Inj IV Dilaudid Inj ED Course 2339: Past medical records reviewed. The patient was evaluated in room B8. A complete history and physical exam was performed. An IV lock was initiated and labs were drawn as above. 2352: Ordered Toradol Inj 30 mg IV, Zofran Inj 4 mg IV. 0047: At this time, I reevaluated the patient and she was resting. The patient states that her nausea is a little bit better. However, she still rates her discomfort as a 9 out of 10 in severity. 0050: Ordered Dilaudid Inj 2 mg IV. 0145: At this time, I reevaluated the patient and she was feeling better after having pain medications. 0210: Upon reevaluation, the patient is resting comfortably. I discussed findings and results with her. She verbalized agreement of the treatment plan. The patient was discharged home. Medical Decision The patient is a 26 year old female who presents to the ED with abdominal pain. Differential diagnosis includes exacerbation of chronic abdominal pain, gastritis, GERD, or bowel obstruction. Labs reviewed by me: Urinalysis normal, normal renal function, glucose 124, LFTs normal except ALT of 104, lipase normal, white blood cells 11, no left shift, stable H&H. The patient has had chronic epigastric abdominal pain since she underwent cholecystectomy 9 months ago. She said evaluation by gastroenterology and recent admission to the hospital for intractable epigastric pain. The patient was ordered oxycodone to use every 4 hours for her pain. Unfortunately, the patient took only one tablet yesterday and has been eating foods like grilled G sandwiches and eggs which seemed to make her symptoms worse. I've encouraged the patient to avoid high fat foods and to take a bland diet. I recommend that she take her pain medications rarely. I prescribed some additional pain meds to last her through till Tuesday when she follows up with her PCP. She did explained to me that her PCP had only prescribed her tramadol the past. She was encouraged also to follow-up with Dr. Dickens who is her rn er. [place] Drug Monitoring Program Search Results: patient reviewed within database (patient received 10 Oxycodone on 02/17/2017) Impression Primary Impression: Epigastric abdominal pain Scribe Attestation The scribe's documentation has been prepared under my direction and personally reviewed by me in its entirety. I confirm that the note above accurately reflects all work, treatment, procedures, and medical decision making performed by me. Departure Information Dispostion Home / Self-Care Prescriptions Oxycodone Ir (Roxicodone Ir) 5 Mg Tab 1-2 TAB PO Q4H Y for Severe Pain, #12 TAB Prov: Sandy Landry D.O. 02/20/17 Referrals Chelsea Soliz D.O. (PCP) Forms HOME CARE DOCUMENTATION FORM, IMPORTANT VISIT INFORMATION Patient Instructions ED Epigastric Pain Anna MENJIV[facility] Additional Instructions oxycodone - 1-2 tabs. every 4 -6 hours for pain. No driving. Consider taking Tramadol instead as its less addictive Rest. Take a bland diet- regularly. Take all other meds as directed. Follow up with Dr. Dickens on Tuesday
[2017-02-19] MEDS ORDERED: ONDANSETRON INJ 2 MG/ML 2 ML VIAL IV STA (23:52)
[2017-02-19] MEDS ORDERED: KETOROLAC TROMETHAMINE 30 MG/ML VIAL IV STA (23:52)
[2017-02-20] MEDS ORDERED: HYDROmorphone INJ 2 MG/ML SYR/VIAL IV STA (00:50)
[2017-02-20 00:56] LABS: BASO % 0.3 %; BASO ABS # 0.03 K/uL (0-0.2); COMPLETE YES; EOS % 1.6 %; HEMATOCRIT 40.6 % (37-47); IG% 0.5 %; LYMPH ABS # 1.98 K/uL (1.2-3.4); MEAN CELL VOLUME 87.5 fL (80-100); MEAN CORPUSCULAR HGB CONC 35.5 g/dl (32-36); MEAN PLATELET VOLUME 9.9 fL (7.4-10.4); NEUT % 71.6 %; PLATELET COUNT 187 K/uL (130-400); RED BLOOD COUNT 4.64 M/uL (4.2-5.4)
[2017-02-20 01:02] LABS: ALT/SGPT 104 U/L (12-78); AST/SGOT 31 U/L (15-37); BLOOD UREA NITROGEN 11 mg/dl (7-18); BUN/CREATININE RATIO 14.3 (10-20); CARBON DIOXIDE 29 mmol/L (21-32); CHLORIDE 106 mmol/L (98-107); CREATININE 0.79 mg/dl (0.60-1.20); GLUCOSE 124 mg/dl (70-99); POTASSIUM 3.7 mmol/L (3.5-5.1); SODIUM 143 mmol/L (136-145)
[2017-02-20 01:05] LABS: ALKALINE PHOSPHATASE 92 U/L (45-117)
[2017-02-20 01:49] LABS: URINE APPEARANCE CLEAR (CLEAR); URINE BILIRUBIN NEG (NEG); URINE COLOR YELLOW; URINE NITRITE NEG (NEG); URINE SPECIFIC GRAVITY 1.013 (1.000-1.030); UROBILINOGEN NEG (NEG)
[2017-02-20] MEDS ORDERED: OXYC1TAB3 PO (02:03)
[2017-02-20 02:04] LABS: MANUAL MICROSCOPIC REQUIRED? NO; REVIEW REQ? NO
[2017-02-20 02:09] VITALS: BP 110/75; PULSE 68; O2SAT 97
== END 2017-02-20 02:20 | disposition home or self-care (01) ==
LOC: C.EDB 23:10
DX: R10.13 Epigastric pain (principal); R11.0 Nausea; F32.9 Major depressive disorder, single episode, unspecified; K21.9 Gastro-esophageal reflux disease without esophagitis; Z87.01 Personal history of pneumonia (recurrent); Z87.09 Personal history of other diseases of the respiratory system; Z87.19 Personal history of other diseases of the digestive system; Z82.0 Family history of epilepsy and other diseases of the nervous system; Z82.49 Family history of ischemic heart disease and other diseases of the circulatory system; Z83.3 Family history of diabetes mellitus; Z83.6 Family history of other diseases of the respiratory system; Z83.79 Family history of other diseases of the digestive system; Z84.1 Family history of disorders of kidney and ureter; F17.200 Nicotine dependence, unspecified, uncomplicated

== ENCOUNTER 2017-03-07 21:04 | Emergency (ER) | payer OTHER ==
[~2017-03-07] VITALS: Ht 160 cm; Wt 105.8 kg
[~2017-03-07 21:04] MED LIST changes: -BNT20 PO; -DICL75TA2 PO; -PANT40TA PO
[2017-03-07 21:09] VITALS: TEMP 36.6; O2SAT 98; Ht 160 cm; Wt 105.8 kg
[2017-03-07] MEDS ORDERED: ONDANSETRON INJ 2 MG/ML 2 ML VIAL IV STA (21:26)
[2017-03-07] MEDS ORDERED: SODIUM CHLORIDE 0.9% 1000ML 1,000 ML IV STA (21:26)
[2017-03-07] MEDS ORDERED: KETOROLAC TROMETHAMINE 30 MG/ML VIAL IV STA (21:26)
--- NOTE | 2017-03-07 21:42 | EMERGENCY ROOM VISIT NOTE ---
History Report prepared by Delroy: Stephanie Luevano Under the Supervision of: Dr. Bianka Nicole M.D. First contact with patient: 21:20 Chief Complaint: ABDOMINAL PAIN Stated Complaint: TROWING UP BLOOD, SEVERE ABDOMINAL PAIN History of Present Illness The patient is a 26 year old female who presents to the Emergency Room with complaints of persistent mid- right sided abdominal pain that began 1.5 months ago. She currently rates her discomfort as a 10/10 in severity, describing her pain as a stabbing pain. The patient reports that she has been evaluated in the emergency department 5-6 times within the last 1.5 months for her persistent abdominal pain. She states that she has cut out fatty foods and caffeine without any change in symptoms. The patient states that she was evaluated in [facility]'s emergency department and was referred to a put in beat adjuster in March. She states that she is scheduled for an endoscopy and colonoscopy in February, noting that her last endoscopy was in May 2016. The patient states that she has experienced hematemesis and nausea. She states that she has had CT scans, endoscopies, and x-rays without knowing why she is in pain. The patient states that she has lost two jobs because her medical issues. She states that she currently is on her menstrual cycle, stating that her pain worsens while on her cycle. The patient states that she has tried Protonix, Bentyl, Carafate, and several other medications without relief of her symptoms. She states that she has been taking Zofran for her nausea. The patient states that she was previously on Tramadol for her pain. She additionally notes that she was on Oxycodone which helped her discomfort, but notes that her PCP refused to refill her medication today. The patient states that her PCP wanted to place her on an anti-depressant. She reports normal bowel movements. Source of History: patient Onset: 1.5 months ago Position: abdomen Symptom Intensity: 10/10 Quality: stabbing Timing: other (persistent) Modifying Factors (Worsening): other (menstrual cramps) Modifying Factors (Relieving): narcotics (oxycodone) Associated Symptoms: + nausea Note: Associated Symptoms: hematemesis Review of Systems See HPI for pertinent positives & negatives. A total of 10 systems reviewed and were otherwise negative. Past Medical & Surgical Medical Problems: (1) Acute bronchitis (2) Cigarette nicotine dependence, uncomplicated (3) Depressive Disorder Nec (4) Esophageal Reflux (5) GI bleed (6) Pneumonia, Organism Nos (7) Tobacco use disorder Surgical Problems: (1) History of arthroscopy of shoulder (2) History of cholecystectomy Family History Diabetes mellitus FH: cancer FH: gallbladder disease FH: lung disease Hypertension Kidney disease Kidney stones Seizures Social History Smoking Status: Current Every Day Smoker Alcohol Use: occasionally Marital Status: single Housing Status: lives with family Occupation Status: unemployed Current/Historical Medications Scheduled Pantoprazole (Protonix), 40 MG PO DAILY Sucralfate (Carafate), 10 ML PO QID Scheduled PRN Ondansetron Hcl (Zofran), 4 MG PO Q8 PRN for Nausea Oxycodone Ir (Roxicodone Ir), 1-2 TAB PO Q4H PRN for Severe Pain Allergies Coded Allergies: Penicillins (Unverified Allergy, Mild, RASH, 03/07/17) Physical Exam Vital Signs Date Time Temp Pulse Resp B/P (MAP) Pulse Ox O2 Delivery O2 Flow Rate FiO2 03/08/17 00:09 81 132/82 03/07/17 21:09 36.6 80 18 147/91 98 Room Air Physical Exam Vital signs reviewed. General: Well-appearing female, in no significant distress. HEENT: No scleral icterus, PERRLA, neck supple. Atraumatic. Cardiovascular: Regular rate and rhythm, no extra sounds. Pulmonary: Clear to auscultation bilaterally, normal work of breathing. Abdomen: Obese, tender in the epigastric region. Soft, nondistended, positive bowel sounds. Musculoskeletal: Atraumatic, no peripheral edema. Neurologic: Patient awake alert and oriented x 3 Skin: Warm, dry, no rash Medical Decision & Procedures ER Provider Diagnostic Interpretation: Chest/abdomen x-ray per my interpretation, pending radiology review: no sign of obstruction, moderate fecal retention. Chest x-ray clear. Laboratory Results 03/07/17 21:40 Red Blood Count 4.79, Mean Corpuscular Volume 89.4, Mean Corpuscular Hemoglobin 31.9, Mean Corpuscular Hemoglobin Concent 35.7, Mean Platelet Volume 10.2, Neutrophils (%) (Auto) 64.0, Lymphocytes (%) (Auto) 23.2, Monocytes (%) (Auto) 8.4, Eosinophils (%) (Auto) 3.9, Basophils (%) (Auto) 0.3, Neutrophils # (Auto) 5.77, Lymphocytes # (Auto) 2.09, Monocytes # (Auto) 0.76, Eosinophils # (Auto) 0.35, Basophils # (Auto) 0.03 03/07/17 21:40 Test 03/07/17 21:40 White Blood Count 9.02 K/uL (4.8-10.8) Red Blood Count 4.79 M/uL (4.2-5.4) Hemoglobin 15.3 g/dL (12.0-16.0) Hematocrit 42.8 % (37-47) Mean Corpuscular Volume 89.4 fL (80-100) Mean Corpuscular Hemoglobin 31.9 pg (25-34) Mean Corpuscular Hemoglobin Concent 35.7 g/dl (32-36) Platelet Count 171 K/uL (130-400) Mean Platelet Volume 10.2 fL (7.4-10.4) Neutrophils (%) (Auto) 64.0 % Lymphocytes (%) (Auto) 23.2 % Monocytes (%) (Auto) 8.4 % Eosinophils (%) (Auto) 3.9 % Basophils (%) (Auto) 0.3 % Neutrophils # (Auto) 5.77 K/uL (1.4-6.5) Lymphocytes # (Auto) 2.09 K/uL (1.2-3.4) Monocytes # (Auto) 0.76 K/uL (0.11-0.59) Eosinophils # (Auto) 0.35 K/uL (0-0.5) Basophils # (Auto) 0.03 K/uL (0-0.2) RDW Standard Deviation 41.0 fL (36.4-46.3) RDW Coefficient of Variation 12.7 % (11.5-14.5) Immature Granulocyte % (Auto) 0.2 % Immature Granulocyte # (Auto) 0.02 K/uL (0.00-0.02) Urine Color YELLOW Urine Appearance CLOUDY (CLEAR) Urine pH >= 9.0 (4.5-7.5) Urine Specific [place] 1.017 (1.000-1.030) Urine Protein NEG (NEG) Urine Glucose (UA) NEG (NEG) Urine Ketones NEG (NEG) Urine Occult Blood 2+ (NEG) Urine Nitrite NEG (NEG) Urine Bilirubin NEG (NEG) Urine Urobilinogen NEG (NEG) Urine Leukocyte Esterase NEG (NEG) Urine WBC (Auto) 1-5 /hpf (0-5) Urine RBC (Auto) 0-4 /hpf (0-4) Urine Hyaline Casts (Auto) 1-5 /lpf (0-5) Urine Epithelial Cells (Auto) >30 /lpf (0-5) Urine Bacteria (Auto) NEG (NEG) Urine Test NEG (NEG) Anion Gap 12.0 mmol/L (3-11) Est Creatinine Clear Calc Drug Dose 107.7 ml/min Estimated GFR () 99.0 Estimated GFR (Non- 85.4 BUN/Creatinine Ratio 10.5 (10-20) Calcium Level 9.2 mg/dl (8.5-10.1) Magnesium Level 2.2 mg/dl (1.8-2.4) Total Bilirubin 0.5 mg/dl (0.2-1) Direct Bilirubin 0.2 mg/dl (0-0.2) Aspartate Amino Transf (AST/SGOT) 35 U/L (15-37) Alanine Aminotransferase (ALT/SGPT) 75 U/L (12-78) Alkaline Phosphatase 79 U/L (45-117) Total Protein 7.5 gm/dl (6.4-8.2) Albumin 3.9 gm/dl (3.4-5.0) Lipase 133 U/L (73-393) Laboratory results per my review. Medications Administered Medications (Trade) Dose Ordered Sig/Gamal Route Start Time Stop Time Status Last Admin Dose Admin Sodium Chloride 1,000 ml @ 999 mls/hr Q1H1M STAT IV 03/07/17 21:26 03/07/17 22:26 DC 03/07/17 21:47 999 MLS/HR Ketorolac Tromethamine (Toradol Inj) 30 mg NOW STAT IV 03/07/17 21:26 03/07/17 21:31 DC 03/07/17 21:47 30 MG Ondansetron HCl (Zofran Inj) 4 mg NOW STAT IV 03/07/17 21:26 03/07/17 21:31 DC 03/07/17 21:47 4 MG Acetaminophen/ Hydrocodone Bitart (Eddy 5/325 Tab) 1 tab NOW STAT PO 03/07/17 23:42 03/07/17 23:44 DC 03/07/17 23:50 1 TAB ED Course 2121: Past medical records reviewed. The patient was evaluated in room A9B. A complete history and physical examination was performed. 2125: Ordered Zofran Inj 4 mg IV, Toradol Inj 30 mg IV, Sodium Chloride 1000 ml @ 999 mls/hr IV. 2251: I reevaluated the patient and she is resting. I had a long discussion with the patients mother. The patient is going to have a chest x-ray. 2341: Ordered Eddy 5/325 Tab 1 tab PO. 2348: I reevaluated the patient and she is doing well. I discussed the exam findings with her and I discussed the treatment plan. She verbalized complete understanding and agreement. She is ready to go home. Medical Decision Differential diagnosis: Etiologies such as appendicitis, diverticulitis, PUD, biliary pathology, UTI, pancreatitis, obstruction, mesenteric ischemia, aortic pathology, infections, inflammatory bowel disease, renal colic, as well as others were entertained. Blood Pressure Screening: Patient was found to have an elevated blood pressure and was referred to their primary doctor for recheck and further treatment. Medication Reconciliation: I attest that I have personally reviewed the patient' s current medication list. This patient was evaluated and appeared to be in no significant distress. IV access was obtained and laboratory work was drawn. Patient was placed on monitor technician centimeter normal sinus rhythm. Records were reviewed and the patient has had multiple visits with multiple imaging studies and laboratory work. There is no significant abnormality with her blood work today. Had a long discussion with the patient's mother. She has expressed concerns over her multiple visits. She had some relief with IV Toradol and Zofran. I discussed my concerns over narcotic therapy for the patient's pain has no identifiable etiology currently. Mother agreed. She did ask for further imaging to rule out obstruction. The x-ray series ordered and is negative. There is some fecal retention. The patient will use MiraLAX 1 capful daily as needed for BM. She was given a prescription for Protonix 40 mg daily as well as Carafate 4 times daily or to meals and bedtime. She'll follow-up with gastroenterology in one week for upper and lower endoscopy. She has follow-up appointments with both GI locally and in [place]. The patient will return to the ER for worsening of symptoms or any medical concerns. Impression Primary Impression: Intractable epigastric abdominal pain Scribe Attestation The scribe's documentation has been prepared under my direction and personally reviewed by me in its entirety. I confirm that the note above accurately reflects all work, treatment, procedures, and medical decision making performed by me. Departure Information Dispostion Home / Self-Care Prescriptions Sucralfate (CARAFATE) 1 Gm/10 Ml Brenda 10 ML PO QID for 30 Days, #1200 ML Prov: Bianka Nicole M.D. 03/08/17 Pantoprazole (Protonix) 40 Mg Tab 40 MG PO DAILY, #30 TAB Prov: Bianka Nicole M.D. 03/08/17 Referrals Chelsea Soliz D.O. (PCP) Tl Cummings M.D. Forms HOME CARE DOCUMENTATION FORM, IMPORTANT VISIT INFORMATION Patient Instructions [facility] Additional Instructions Diagnosis: Intractable epigastric abdominal pain Tylenol 650 mg every 6 hours as needed for pain. Continue Protonix and Carafate as prescribed. Avoid any soda, coffee, alcohol or energy drinks. Avoid greasy and spicy foods. Consider pain management referral. Follow-up in one week with gastroenterology for endoscopy as scheduled. Return to the emergency department for worsening of symptoms or any medical concerns.
[2017-03-07 21:52] LABS: BASO % 0.3 %; BASO ABS # 0.03 K/uL (0-0.2); COMPLETE YES; EOS % 3.9 %; HEMATOCRIT 42.8 % (37-47); IG% 0.2 %; LYMPH % 23.2 %; LYMPH ABS # 2.09 K/uL (1.2-3.4); MEAN CELL VOLUME 89.4 fL (80-100); MEAN CORPUSCULAR HEMOGLOBIN 31.9 pg (25-34); MEAN CORPUSCULAR HGB CONC 35.7 g/dl (32-36); MEAN PLATELET VOLUME 10.2 fL (7.4-10.4); MONO % 8.4 %; PLATELET COUNT 171 K/uL (130-400); RED BLOOD COUNT 4.79 M/uL (4.2-5.4); WHITE BLOOD COUNT 9.02 K/uL (4.8-10.8)
[2017-03-07 22:07] LABS: BUN/CREATININE RATIO 10.5 (10-20); CREATININE 0.93 mg/dl (0.60-1.20); MAGNESIUM 2.2 mg/dl (1.8-2.4); POTASSIUM 3.7 mmol/L (3.5-5.1); URINE APPEARANCE CLOUDY (CLEAR); URINE BILIRUBIN NEG (NEG); URINE COLOR YELLOW; URINE EPITHELIAL CELL AUTO >30 /lpf (0-5); URINE NITRITE NEG (NEG); URINE PH >= 9.0 (4.5-7.5); URINE SPECIFIC GRAVITY 1.017 (1.000-1.030); UROBILINOGEN NEG (NEG); ZZUR CULT IF INDIC CLEAN CATCH NO
[2017-03-07 22:08] LABS: MANUAL MICROSCOPIC REQUIRED? NO; REVIEW REQ? NO
[2017-03-07 22:25] LABS: CALCIUM 9.2 mg/dl (8.5-10.1)
[2017-03-07] MEDS ORDERED: HYDROCODONE/ACETAMOPHEN 5/325MG TAB PO STA (23:42)
[2017-03-08 00:09] VITALS: BP 132/82; PULSE 81
[2017-03-08] MEDS ORDERED: PANT40TA PO (00:18)
[2017-03-08] MEDS ORDERED: CRFL PO (00:18)
--- NOTE | 2017-03-08 08:05 | DIAGNOSTIC IMAGING REPORT ---
ABDOMEN 2VIEW W/PA CHEST RTN CLINICAL HISTORY: abd pain, epigastric pain COMPARISON STUDY: 11/19/2015 FINDINGS: The soft tissues, psoas shadows, renal outlines and intestinal gas pattern appear normal. There is no evidence for bowel obstruction. There is no evidence for free intraperitoneal air. No abnormal abdominal calcifications are seen. A frontal view of the chest was performed and is unremarkable. IMPRESSION: Normal study. Electronically signed by: David Ross M.D. 03/08/2017 8:03 AM Dictated Date/Time: 03/08/2017 8:01 AM
== END 2017-03-08 00:10 | disposition home or self-care (01) ==
LOC: C.EDB 21:05 → C.EDA 03-08 00:10
DX: R10.13 Epigastric pain (principal); K21.9 Gastro-esophageal reflux disease without esophagitis; K59.00 Constipation, unspecified; F17.210 Nicotine dependence, cigarettes, uncomplicated; Z87.01 Personal history of pneumonia (recurrent); Z90.49 Acquired absence of other specified parts of digestive tract; Z98.890 Other specified postprocedural states; Z83.3 Family history of diabetes mellitus; Z82.49 Family history of ischemic heart disease and other diseases of the circulatory system; Z84.1 Family history of disorders of kidney and ureter; Z82.0 Family history of epilepsy and other diseases of the nervous system; Z79.899 Other long term (current) drug therapy

== ENCOUNTER 2017-04-08 10:17 | Emergency (ER) | payer OTHER ==
[~2017-04-08] VITALS: Ht 162.6 cm; Wt 105.3 kg
[~2017-04-08 10:17] MED LIST changes: +CRFL PO; +PANT40TA PO; -TRAM-10 PO
[2017-04-08 10:22] VITALS: TEMP 37.1; Ht 162.6 cm; Wt 105.3 kg
[2017-04-08] MEDS ORDERED: PRENTAB65 PO (10:57)
[2017-04-08] MEDS ORDERED: SODIUM CHLORIDE 0.9% 1000ML 1,000 ML IV STA (11:28)
[2017-04-08] MEDS ORDERED: ONDANSETRON INJ 2 MG/ML 2 ML VIAL IV STA (11:28)
[2017-04-08] MEDS ORDERED: ACETAMINOPHEN IV 650 MG in EMPTY BAG 0 ML IV ONE (11:30)
[2017-04-08 11:51] LABS: BUN/CREATININE RATIO 6.5 (10-20); CALCIUM 9.2 mg/dl (8.5-10.1); CREATININE 0.83 mg/dl (0.60-1.20); POTASSIUM 3.6 mmol/L (3.5-5.1)
[2017-04-08 11:57] LABS: BASO % 0.2 %; BASO ABS # 0.02 K/uL (0-0.2); COMPLETE YES; HEMATOCRIT 42.4 % (37-47); IG% 0.4 %; MEAN CELL VOLUME 88.9 fL (80-100); MEAN CORPUSCULAR HEMOGLOBIN 32.1 pg (25-34); MEAN CORPUSCULAR HGB CONC 36.1 g/dl (32-36); MEAN PLATELET VOLUME 10.8 fL (7.4-10.4); MONO % 7.1 %; NEUT % 73.3 %; PLATELET COUNT 173 K/uL (130-400); RED BLOOD COUNT 4.77 M/uL (4.2-5.4); WHITE BLOOD COUNT 11.19 K/uL (4.8-10.8)
[2017-04-08 12:05] LABS: URINE APPEARANCE CLEAR (CLEAR); URINE BILIRUBIN NEG (NEG); URINE COLOR YELLOW; URINE EPITHELIAL CELL AUTO 20-30 /lpf (0-5); URINE NITRITE NEG (NEG); URINE SPECIFIC GRAVITY 1.005 (1.000-1.030); UROBILINOGEN NEG (NEG)
[2017-04-08 12:19] LABS: MANUAL MICROSCOPIC REQUIRED? NO; REVIEW REQ? NO
--- NOTE | 2017-04-08 13:45 | DIAGNOSTIC IMAGING REPORT ---
ULTRASOUND CLINICAL HISTORY: . Abdominal pain. Evaluate for ectopic . COMPARISON STUDY: No previous studies for comparison. TECHNIQUE: Transabdominal and transvaginal sonography of the pelvis was performed. FINDINGS: The uterus measures 8.6 x 3.9 x 4.5 cm. The endometrium is thickened and heterogeneous, measuring 1.9 cm in thickness. No intrauterine gestational sac was identified. The right ovary measures 3.2 x 1.8 x 2.3 cm and the left measures 5.3 x 2.9 x 4.1 cm. There is a 3.6 cm left ovarian cyst. No adnexal mass was identified. No free fluid was identified. Color flow was identified within each ovary. IMPRESSION: 1. No intrauterine gestational sac identified. Thickened, heterogeneous endometrium, measuring 1.9 cm in thickness. Given positive test, differential considerations include a normal early intrauterine gestation, sonographically occult ectopic and missed spontaneous . Close clinical follow-up, including serial beta hCG levels is recommended. 2. 3.6 cm left ovarian cyst. Electronically signed by: Terry Rosenthal M.D. 04/08/2017 1:43 PM Dictated Date/Time: 04/08/2017 1:36 PM
[2017-04-08 14:27] VITALS: BP 124/73; PULSE 73; O2SAT 99
--- NOTE | 2017-04-08 20:00 | EMERGENCY ROOM VISIT NOTE ---
ED Visit Note First contact with patient: 11:13 Chief Complaint: Abdominal pain. History of Present Illness: Ms. Marino is a 60 year-old white female who ambulates into the ED accompanied by female friend complaining of bilateral upper lateral and upper quadrant abdominal pain. Historically patient reports she has a history of previous similar episodes of pain. She has been evaluated in the ED multiple times and has seen a painter supervisor and has had multiple screenings and her cause of her pain has not been identified. She is status post cholecystectomy without complications. Additionally she reports he is currently 5 weeks with her last menstrual cycle the first weekend of February 2017. She has not set her OB /CASING IN LINE FEEDER physician for her initial appointment. This is her first . Additionally she reports she did contact her ASSET PROTECTION OFFICER who encouraged her to come to the ED to be evaluated for neck top . Patient reports her initial pain started last evening and then resolved. She slept all night and when she woke this morning the pain was present. He places her discomfort over the midaxillary area in the lower ribs as well as the upper portions of the bilateral upper quadrants. She describes her pain as a sharp sensation. Her pain is constant. She has not identified any aggravating or alleviating factors related to the pain. She has not taken any medications for pain prior to arrival at the hospital. Associated with her pain she reports she is nauseated but has been nauseated for 3 days and this has not worsened and it has been the last 3 days. Patient denies fevers, chills, sweats, skin eruptions, skin color changes, upper respiratory tract symptoms, shortness of breath, chest pain, diarrhea, constipation, rectal bleeding, black/tarry stools, urinary symptoms, hematuria, vaginal bleeding, vaginal discharge, back/flank pain. Review of Systems: As noted above in history of present illness. All body systems were reviewed and found to be negative as noted above. Past Medical History: As previously noted, asthma, bronchitis and unspecified shoulder surgeries. Current Medications: vitamins. Allergies to Medications: Penicillin. Social History: Patient is currently employed; she feels safe in her home environment; she denies tobacco and alcohol use. Physical Examination: Vital Signs: Date Time Temp Pulse Resp B/P (MAP) Pulse Ox O2 Delivery O2 Flow Rate FiO2 04/08/17 14:27 73 18 124/73 99 04/08/17 13:38 69 16 137/69 99 Room Air 04/08/17 12:15 79 04/08/17 11:53 82 16 102/79 97 04/08/17 10:22 37.1 83 18 142/91 97 Room Air GENERAL: 26-year-old female in mild distress due to pain, nontoxic-appearing, afebrile and hemodynamically stable. NEUROLOGICAL: Awake, alert and oriented to person, place and time. Answering questions appropriately and following commands. Normal gait. Good hand eye coordination. SKIN: Warm, dry and pink. No soft tissue eruptions or trauma noted. HEENT: Atraumatic and normocephalic. PERRLA. Sclera white and conjunctiva pink. Oral cavity moist and pink. Pharynx is nonerythematous or edematous. Speech normal. No lymphadenopathy. Trachea midline. No jugular venous distention. BACK: No tenderness over the bony spine. No CVA tenderness. THORAX: Lungs sounds are clear to auscultation and equal bilaterally with symmetrical chest wall. No wheezing, rales or rhonchi. No crepitus, tenderness , subcutaneous air or deformities noted. HEART: Regular rate and rhythm. No gallops, rubs or murmurs are appreciated. ABDOMEN: Obese and soft with mild tenderness in the left and right upper quadrants. Positive bowel sounds in all quadrants. No guarding, rigidity or organomegaly. EXTREMITIES: Moves all extremities well on command and with purpose. All distal neurovascular statuses are intact and equal bilaterally. ED Course: Patient is assessed as noted above. Laboratory Testing: Test 04/08/17 10:37 04/08/17 10:40 Range/Units White Blood Count 11.19 4.8-10.8 K/uL Red Blood Count 4.77 4.2-5.4 M/uL Hemoglobin 15.3 12.0-16.0 g/dL Hematocrit 42.4 37-47 % Mean Corpuscular Volume 88.9 80-100 fL Mean Corpuscular Hemoglobin 32.1 25-34 pg Mean Corpuscular Hemoglobin Concent 36.1 32-36 g/dl Platelet Count 173 130-400 K/uL Mean Platelet Volume 10.8 7.4-10.4 fL Neutrophils (%) (Auto) 73.3 % Lymphocytes (%) (Auto) 17.0 % Monocytes (%) (Auto) 7.1 % Eosinophils (%) (Auto) 2.0 % Basophils (%) (Auto) 0.2 % Neutrophils # (Auto) 8.21 1.4-6.5 K/uL Lymphocytes # (Auto) 1.90 1.2-3.4 K/uL Monocytes # (Auto) 0.80 0.11-0.59 K/uL Eosinophils # (Auto) 0.22 0-0.5 K/uL Basophils # (Auto) 0.02 0-0.2 K/uL RDW Standard Deviation 40.2 36.4-46.3 fL RDW Coefficient of Variation 12.5 11.5-14.5 % Immature Granulocyte % (Auto) 0.4 % Immature Granulocyte # (Auto) 0.04 0.00-0.02 K/uL Sodium Level 138 136-145 mmol/L Potassium Level 3.6 3.5-5.1 mmol/L Chloride Level 108 98-107 mmol/L Carbon Dioxide Level 22 21-32 mmol/L Anion Gap 8.0 3-11 mmol/L Blood Urea Nitrogen 5 7-18 mg/dl Creatinine 0.83 0.60-1.20 mg/dl Est Creatinine Clear Calc Drug Dose 122.6 ml/min Estimated GFR () 113.6 Estimated GFR (Non- 98.0 BUN/Creatinine Ratio 6.5 10-20 Random Glucose 139 70-99 mg/dl Calcium Level 9.2 8.5-10.1 mg/dl Total Bilirubin 0.6 0.2-1 mg/dl Direct Bilirubin 0.1 0-0.2 mg/dl Aspartate Amino Transf (AST/SGOT) 34 15-37 U/L Alanine Aminotransferase (ALT/SGPT) 72 12-78 U/L Alkaline Phosphatase 70 45-117 U/L Total Protein 7.1 6.4-8.2 gm/dl Albumin 3.7 3.4-5.0 gm/dl Lipase 110 73-393 U/L Human Chorionic Gonadotropin, Quant 299 mIU/mL Urine Color YELLOW Urine Appearance CLEAR CLEAR Urine pH 7.0 4.5-7.5 Urine Specific [place] 1.005 1.000-1.030 Urine Protein NEG NEG Urine Glucose (UA) NEG NEG Urine Ketones NEG NEG Urine Occult Blood NEG NEG Urine Nitrite NEG NEG Urine Bilirubin NEG NEG Urine Urobilinogen NEG NEG Urine Leukocyte Esterase TRACE NEG Urine WBC (Auto) 1-5 0-5 /hpf Urine RBC (Auto) 0-4 0-4 /hpf Urine Hyaline Casts (Auto) 0 0-5 /lpf Urine Epithelial Cells (Auto) 20-30 0-5 /lpf Urine Bacteria (Auto) NEG NEG Ultrasound: Was reviewed by myself and read by the radiologist showing no intrauterine gestation sac identified. Thickened, heterogeneous measuring 1.9 cm in thickness. Patient was hydrated with normal saline and she received 650 mg of acetaminophen IV and 4 mg of Zofran IV. Patient was reassessed multiple times during her stay in the emergency department. Patient's case was reviewed with Dr. Ronquillo; we agreed on diagnostic approach, treatment, disposition and plan. Patient's case was consulted with [place] Jamil ASSET PROTECTION OFFICER; she recommended discharge to home with close follow-up for serial quantitative beta hCGs. Patient was educated about today's findings and instructed on her treatment plan ; she verbalizes understanding and agreement with this plan. Clinical Impression: Acute bilateral upper quadrant abdominal pain. Decision-Making: Initially my differential diagnosis I considered hepatitis, pancreatitis, ectopic , urinary tract infection, bowel obstruction, constipation and other causes. Disposition: Patient discharged home in stable condition accompanied by her father; prior to departure she was reassessed and subjectively reported she was pain free. Plan: Patient was encouraged to use 650 mg of acetaminophen every 6 hours as needed for pain. Patient was to avoid vaginal penetration. Patient was encouraged to follow-up with her ASSET PROTECTION OFFICER physician's office for serial hCG testing. Patient was encouraged return the ED for worsening pain, fevers, vaginal bleeding, lightheadedness, syncope or any new/concerning symptoms.
== END 2017-04-08 14:27 | disposition home or self-care (01) ==
LOC: C.EDB 10:19
DX: O99.89 Other specified diseases and conditions complicating pregnancy, childbirth and the puerperium (principal); R10.11 Right upper quadrant pain; R10.12 Left upper quadrant pain; R11.0 Nausea; Z90.49 Acquired absence of other specified parts of digestive tract; Z3A.01 Less than 8 weeks gestation of pregnancy; J45.909 Unspecified asthma, uncomplicated

== ENCOUNTER → 2017-04-12 | Outpatient (CLI) | payer OTHER ==
[~2017-04-12] MED LIST changes: -CRFL PO; -ONDA4TAB65 PO; +ONDA8TAB62 SL; -OXYC1TAB3 PO; -PANT40TA PO; +PRENTAB65 PO
== END | disposition home or self-care (01) ==
LOC: C.LAB1850 09:04
PROVIDERS: ATTEND Obstetrics & Gynecology
DX: O99.89 Other specified diseases and conditions complicating pregnancy, childbirth and the puerperium (principal); Z3A.00 Weeks of gestation of pregnancy not specified

== ENCOUNTER 2017-04-23 00:08 | Emergency (ER) | payer OTHER ==
[~2017-04-23] VITALS: Ht 162.6 cm; Wt 106.8 kg
[~2017-04-23 00:08] MED LIST changes: -ONDA8TAB62 SL
[2017-04-23 00:14] VITALS: TEMP 36.8; Ht 162.6 cm; Wt 106.8 kg
[2017-04-23] MEDS ORDERED: ONDANSETRON INJ 2 MG/ML 2 ML VIAL IV STA (00:24)
[2017-04-23] MEDS ORDERED: ACETAMINOPHEN 500 MG TAB PO STA (00:24)
[2017-04-23] MEDS ORDERED: SODIUM CHLORIDE 0.9% 1000ML 1,000 ML IV STA (00:24)
[2017-04-23 00:44] LABS: URINE APPEARANCE CLEAR (CLEAR); URINE BILIRUBIN NEG (NEG); URINE COLOR YELLOW; URINE EPITHELIAL CELL AUTO >30 /lpf (0-5); URINE NITRITE NEG (NEG); URINE PH 7.5 (4.5-7.5); URINE SPECIFIC GRAVITY 1.014 (1.000-1.030); UROBILINOGEN NEG (NEG); ZZUR CULT IF INDIC CLEAN CATCH NO
[2017-04-23 00:52] LABS: BASO % 0.2 %; BASO ABS # 0.03 K/uL (0-0.2); COMPLETE YES; EOS % 2.7 %; HEMATOCRIT 39.3 % (37-47); IG% 0.6 %; LYMPH % 20.6 %; LYMPH ABS # 2.61 K/uL (1.2-3.4); MEAN CELL VOLUME 88.9 fL (80-100); MEAN CORPUSCULAR HEMOGLOBIN 32.1 pg (25-34); MEAN CORPUSCULAR HGB CONC 36.1 g/dl (32-36); MEAN PLATELET VOLUME 10.4 fL (7.4-10.4); NEUT % 66.9 %; PLATELET COUNT 150 K/uL (130-400); RED BLOOD COUNT 4.42 M/uL (4.2-5.4); WHITE BLOOD COUNT 12.68 K/uL (4.8-10.8)
[2017-04-23 00:53] LABS: MANUAL MICROSCOPIC REQUIRED? NO; REVIEW REQ? NO
[2017-04-23 01:10] LABS: CALCIUM 9.1 mg/dl (8.5-10.1); CREATININE 0.73 mg/dl (0.60-1.20); POTASSIUM 3.4 mmol/L (3.5-5.1)
[2017-04-23] MEDS ORDERED: ONDANSETRON HOME PACK 4MG OD TAB PO ONE (01:15)
[2017-04-23] MEDS ORDERED: POTASSIUM CHLORIDE 10 MEQ TABCR PO STA (01:15)
--- NOTE | 2017-04-23 02:27 | EMERGENCY ROOM VISIT NOTE ---
History First contact with patient: 00:15 Chief Complaint: ABDOMINAL PAIN Stated Complaint: ABD PAIN,PRES <16WKS Nursing Triage Summary: Patient , reports abdominal pain. History of Present Illness The patient is a 26 year old female who presents to the Emergency Room with complaints of abdominal cramping for the past week who is currently 4 weeks . She describes the pain as cramping, ranging in severity 4 out of 10 throughout the abdomen. Patient's been taking her . This is her first . She repeat Quant last week that was 700. Initial clot was 300. Patient denies vaginal pain, vaginal bleeding, urinary symptoms, fever, chills, vomiting, diarrhea, chest pain, dyspnea. Patient does not feel at risk for STIs. Review of Systems See HPI for pertinent positives & negatives. A total of 10 systems reviewed and were otherwise negative. Past Medical/Surgical History Medical Problems: (1) Acute bronchitis (2) Cigarette nicotine dependence, uncomplicated (3) Depressive Disorder Nec (4) Esophageal Reflux (5) GI bleed (6) Pneumonia, Organism Nos (7) Tobacco use disorder Surgical Problems: (1) History of arthroscopy of shoulder (2) History of cholecystectomy Family History Diabetes mellitus FH: cancer FH: gallbladder disease FH: lung disease Hypertension Kidney disease Kidney stones Seizures Social History Smoking Status: Former Smoker Alcohol Use: occasionally Marital Status: single Housing Status: lives with family Occupation Status: unemployed Current/Historical Medications Scheduled Multivit-Min W/Fe-Fa (), 1 TAB PO DAILY Physical Exam Vital Signs Date Time Temp Pulse Resp B/P (MAP) Pulse Ox O2 Delivery O2 Flow Rate FiO2 04/23/17 00:14 36.8 86 18 135/87 99 Room Air Physical Exam VITALS: Vitals are noted on the nurse's note and reviewed by myself. Vital signs stable. GENERAL: Pleasant female giggling with her friend, in no acute distress, nondiaphoretic, well-developed well-nourished. SKIN: The skin was without rashes, erythema, edema, or bruising. There is no tenting of the skin. Capillary reflex less than 2 seconds. HEAD: Normocephalic atraumatic. EARS: External auditory canals clear, tympanic membranes pearly earl without erythema or effusion bilaterally. EYES: Pupils equal round and reactive to light and accommodation. Conjunctivae without injection, sclerae without icterus. Extraocular movements intact. NOSE: Patent, turbinates without inflammation or discharge. MOUTH: Mucous membranes moist. Pharynx without erythema or exudate. Uvula midline. Airway patent. Tongue does not deviate. NECK: Supple without nuchal rigidity. No lymphadenopathy. No thyromegaly. Cervical spine is nontender. No JVD. HEART: Regular rate and rhythm without murmurs gallops or rubs. LUNGS: Clear to auscultation bilaterally without wheezes, rales or rhonchi. No dullness to percussion. No retractions or accessory muscle use. ABDOMEN: Positive bowel sounds x 4. Normal tympanic percussion. Soft, nontender, without masses or organomegaly. Sargent sign negative. No guarding or rebound tenderness. No CVA tenderness MUSCULOSKELETAL: No muscle atrophy, erythema, or edema noted. NEURO: Patient was alert and oriented to person place and time. Normal sensation to light and sharp touch. No focal neurological deficits. Medical Decision & Procedures Laboratory Results 04/23/17 00:35 Red Blood Count 4.42, Mean Corpuscular Volume 88.9, Mean Corpuscular Hemoglobin 32.1, Mean Corpuscular Hemoglobin Concent 36.1, Mean Platelet Volume 10.4, Neutrophils (%) (Auto) 66.9, Lymphocytes (%) (Auto) 20.6, Monocytes (%) (Auto) 9.0, Eosinophils (%) (Auto) 2.7, Basophils (%) (Auto) 0.2, Neutrophils # (Auto) 8.49, Lymphocytes # (Auto) 2.61, Monocytes # (Auto) 1.14, Eosinophils # (Auto) 0.34, Basophils # (Auto) 0.03 04/23/17 00:35 Test 04/23/17 00:25 04/23/17 00:35 Urine Color YELLOW Urine Appearance CLEAR (CLEAR) Urine pH 7.5 (4.5-7.5) Urine Specific [place] 1.014 (1.000-1.030) Urine Protein NEG (NEG) Urine Glucose (UA) NEG (NEG) Urine Ketones NEG (NEG) Urine Occult Blood NEG (NEG) Urine Nitrite NEG (NEG) Urine Bilirubin NEG (NEG) Urine Urobilinogen NEG (NEG) Urine Leukocyte Esterase TRACE (NEG) Urine WBC (Auto) 1-5 /hpf (0-5) Urine RBC (Auto) 0-4 /hpf (0-4) Urine Hyaline Casts (Auto) 0 /lpf (0-5) Urine Epithelial Cells (Auto) >30 /lpf (0-5) Urine Bacteria (Auto) NEG (NEG) White Blood Count 12.68 K/uL (4.8-10.8) Red Blood Count 4.42 M/uL (4.2-5.4) Hemoglobin 14.2 g/dL (12.0-16.0) Hematocrit 39.3 % (37-47) Mean Corpuscular Volume 88.9 fL (80-100) Mean Corpuscular Hemoglobin 32.1 pg (25-34) Mean Corpuscular Hemoglobin Concent 36.1 g/dl (32-36) Platelet Count 150 K/uL (130-400) Mean Platelet Volume 10.4 fL (7.4-10.4) Neutrophils (%) (Auto) 66.9 % Lymphocytes (%) (Auto) 20.6 % Monocytes (%) (Auto) 9.0 % Eosinophils (%) (Auto) 2.7 % Basophils (%) (Auto) 0.2 % Neutrophils # (Auto) 8.49 K/uL (1.4-6.5) Lymphocytes # (Auto) 2.61 K/uL (1.2-3.4) Monocytes # (Auto) 1.14 K/uL (0.11-0.59) Eosinophils # (Auto) 0.34 K/uL (0-0.5) Basophils # (Auto) 0.03 K/uL (0-0.2) RDW Standard Deviation 40.5 fL (36.4-46.3) RDW Coefficient of Variation 12.7 % (11.5-14.5) Immature Granulocyte % (Auto) 0.6 % Immature Granulocyte # (Auto) 0.07 K/uL (0.00-0.02) Anion Gap 7.0 mmol/L (3-11) Est Creatinine Clear Calc Drug Dose 140.5 ml/min Estimated GFR () 132.7 Estimated GFR (Non- 114.5 BUN/Creatinine Ratio 13.0 (10-20) Calcium Level 9.1 mg/dl (8.5-10.1) Human Chorionic Gonadotropin, Quant 3559 mIU/mL Medications Administered Medications (Trade) Dose Ordered Sig/Gamal Route Start Time Stop Time Status Last Admin Dose Admin Sodium Chloride 1,000 ml @ 999 mls/hr Q1H1M STAT IV 04/23/17 00:24 04/23/17 01:24 DC 04/23/17 00:24 999 MLS/HR Ondansetron HCl (Zofran Inj) 4 mg NOW STAT IV 04/23/17 00:24 04/23/17 00:27 DC 04/23/17 00:47 4 MG Acetaminophen (Tylenol Tab) 1,000 mg NOW STAT PO 04/23/17 00:24 04/23/17 00:27 DC 04/23/17 00:46 1,000 MG Potassium Chloride (Klor-Con M10) 10 meq NOW STAT PO 04/23/17 01:15 04/23/17 01:16 DC 04/23/17 01:50 10 MEQ ED Course Prior records/ancillary studies reviewed. Triage Nursing notes reviewed. The patient's history was concerning for abdominal pain with . Differential diagnosis: Etiologies such as ectopic , , , incomplete , appendicitis, diverticulitis, PUD, biliary pathology, UTI, pancreatitis, obstruction, mesenteric ischemia, aortic pathology, infections, inflammatory bowel disease, renal colic, as well as others were entertained. Physical examination findings: As above. ER treatment provided: IV fluids, Tylenol On reassessment the patient felt better. Diagnostics interpreted by me: The labs revealed quant 3500 Imaging studies: US OB/ENDOVAG: Compared to pelvic ultrasound 04/08/2017 Intrauterine gestation with yolk sac and likely small embryo. Estimated gestational age by this ultrasound is 6 weeks 0 days based on crown-rump length. Cardiac activity is measured at 71 bpm which may represent embryonic bradycardia versus maternal heart rate. Followup would be useful. Small adjacent anechoic focus likely due to small inés-gestational hematoma. Left ovarian cyst. Radiologist: Alberta Laird M.D. Exam and history seem consistent with IUP. The heart rate most likely is from others. Patient's appointment on Tuesday with OB. She was advised to follow- up. Patient states she is mainly concerned about the . Patient did not have an acute abdomen on exam. She is well-appearing. She had no vaginal bleeding. She declined any risk for STIs and did not want testing. She was in a monogamous relationship. She is advised to return to the ER immediately for bleeding, pain, fevers, worsening signs or symptoms or as needed. By the evaluation outlined above emergent etiologies such as appendicitis, diverticulitis, PUD, biliary pathology, UTI, pancreatitis, obstruction, mesenteric ischemia, aortic pathology, infections, inflammatory bowel disease, renal colic, as well as others were deemed relatively unlikely. The pt informed about the findings as listed above. All questions were answered and pleased with the treatment. Return instructions were outlined and the patient was discharged in stable condition. Outpatient prescription management: zofran Referral: The patient was referred back to their spanish instructor for follow-up in 2 to 3 days for a recheck of the current condition. case reviewed with my Attending Medical Decision as above Medication Reconcilliation Current Medication List: was personally reviewed by me Blood Pressure Screening Patient's blood pressure: Normal blood pressure Impression Primary Impression: Abdominal pain during in first trimester Departure Information Dispostion Home / Self-Care Condition GOOD Referrals Chelsea Soliz D.OAl (PCP) Patient Instructions My [facility] Additional Instructions Rest. Stay well hydrated. No strenuous activity or intercourse until cleared by AUTOMATION SPECIALIST. Zofran 4 tablet every 6 hours as needed for nausea and vomiting. Acetaminophen(Tylenol) may be used for fever or pain. Use 1000mg every six hours as needed. Avoid using more than 3000mg in a 24 hour period. Rest and drink plenty of fluids as tolerated. Continue current medications. Return to the ER immediately for heavy vaginal bleeding, abdominal pain, vomiting, fevers, chest pains, difficulty breathing, worsening of your condition , or as needed. Follow up with your AUTOMATION SPECIALIST in 2-3 days for a recheck of your current condition.
[2017-04-23 02:48] VITALS: BP 154/118; PULSE 81; O2SAT 95
--- NOTE | 2017-04-23 07:04 | DIAGNOSTIC IMAGING REPORT ---
ULTRASOUND CLINICAL HISTORY: . Pain. COMPARISON STUDY: ultrasound April 08, 2017. TECHNIQUE: Transabdominal and transvaginal sonography of the pelvis was performed. FINDINGS: An intrauterine gestational sac was noted. The sac was somewhat irregular in configuration. Mean sac diameter was 0.68 cm. A probable yolk sac was noted, measuring 0.58 cm. This is larger than expected. There is a probable pole with a crown-rump length of 0.35 cm which corresponds to an estimated gestational age of 6 weeks and 0 days. Probable cardiac activity was noted with a heart rate of 71 bpm. The right ovary was normal. The left ovary measured 4.3 x 2.8 x 2.3 cm and contained a 2.5 cm cyst. IMPRESSION: Intrauterine gestational sac identified which contains a yolk sac and pole. Estimated gestational age is 6 weeks and 0 days. Probable cardiac activity identified with heart rate of 71 bpm. This may represent embryonic bradycardia. In addition, yolk sac slightly greater than expected and irregularity of the gestational sac. These are nonspecific findings and this may reflect a normal early intrauterine gestation however short-term sonographic follow-up is recommended given these indeterminate findings. Electronically signed by: Terry Rosenthal M.D. 04/23/2017 7:03 AM Dictated Date/Time: 04/23/2017 6:56 AM
== END 2017-04-23 02:49 | disposition home or self-care (01) ==
LOC: C.EDB 00:09
DX: O26.891 Other specified pregnancy related conditions, first trimester (principal); R10.9 Unspecified abdominal pain; Z3A.01 Less than 8 weeks gestation of pregnancy; O99.341 Other mental disorders complicating pregnancy, first trimester; F32.9 Major depressive disorder, single episode, unspecified; O99.611 Diseases of the digestive system complicating pregnancy, first trimester; K21.9 Gastro-esophageal reflux disease without esophagitis; Z87.891 Personal history of nicotine dependence

== ENCOUNTER → 2017-04-25 | Outpatient (CLI) | payer OTHER ==
[~2017-04-25] MED LIST changes: +ONDA8TAB62 SL
[2017-04-25 18:35] LABS: URINE APPEARANCE CLEAR (CLEAR); URINE BILIRUBIN NEG (NEG); URINE COLOR DK YELLOW; URINE EPITHELIAL CELL AUTO >30 /lpf (0-5); URINE NITRITE NEG (NEG); URINE PH 5.5 (4.5-7.5); URINE SPECIFIC GRAVITY 1.023 (1.000-1.030); UROBILINOGEN NEG (NEG)
[2017-04-25 18:37] LABS: MANUAL MICROSCOPIC REQUIRED? NO; REVIEW REQ? NO
== END | disposition home or self-care (01) ==
LOC: C.LABSPEC 09:04
PROVIDERS: ATTEND Obstetrics & Gynecology
DX: Z34.91 Encounter for supervision of normal pregnancy, unspecified, first trimester (principal)

== ENCOUNTER → 2017-05-03 | Outpatient (CLI) | payer OTHER ==
[2017-05-03 15:41] LABS: BASO % 0.3 %; BASO ABS # 0.03 K/uL (0-0.2); COMPLETE YES; EOS % 1.5 %; IG% 0.4 %; LYMPH ABS # 2.03 K/uL (1.2-3.4); MEAN CELL VOLUME 89.5 fL (80-100); MEAN CORPUSCULAR HEMOGLOBIN 31.4 pg (25-34); MEAN CORPUSCULAR HGB CONC 35.1 g/dl (32-36); MEAN PLATELET VOLUME 10.6 fL (7.4-10.4); MONO % 5.8 %; PLATELET COUNT 186 K/uL (130-400); RED BLOOD COUNT 4.58 M/uL (4.2-5.4); WHITE BLOOD COUNT 11.97 K/uL (4.8-10.8)
== END | disposition home or self-care (01) ==
LOC: C.LAB1850 14:07
PROVIDERS: ATTEND Obstetrics & Gynecology
DX: Z34.91 Encounter for supervision of normal pregnancy, unspecified, first trimester (principal)

== ENCOUNTER → 2017-05-03 | Outpatient (CLI) | payer OTHER ==
[2017-05-06 02:58] LABS: CHLAMYDIA TRACH RNA*** DETECTED (NOT DETECTED); GC (NEIS GONORRHOEAE)RNA** NOT DETECTED (NOT DETECTED)
== END | disposition home or self-care (01) ==
LOC: C.LABSPEC 18:05
PROVIDERS: ATTEND Obstetrics & Gynecology
DX: Z34.91 Encounter for supervision of normal pregnancy, unspecified, first trimester (principal)

== ENCOUNTER → 2017-06-09 | Outpatient (CLI) | payer OTHER ==
[2017-06-13 08:43] LABS: CHLAMYDIA TRACH RNA*** NOT DETECTED (NOT DETECTED); GC (NEIS GONORRHOEAE)RNA** NOT DETECTED (NOT DETECTED)
== END | disposition home or self-care (01) ==
LOC: C.LABSPEC 13:38
PROVIDERS: ATTEND Obstetrics & Gynecology
DX: O98.819 Other maternal infectious and parasitic diseases complicating pregnancy, unspecified trimester (principal)

== ENCOUNTER 2017-06-29 23:47 | Emergency (ER) | payer OTHER ==
[~2017-06-29] VITALS: Ht 160 cm; Wt 104.5 kg
[~2017-06-29 23:47] MED LIST changes: -ONDA8TAB62 SL
[2017-06-29 23:50] VITALS: TEMP 36.9; Ht 160 cm; Wt 104.5 kg
[2017-06-30] MEDS ORDERED: SODIUM CHLORIDE 0.9% 1000ML 1,000 ML IV STA (00:06)
[2017-06-30 00:34] LABS: URINE APPEARANCE CLEAR (CLEAR); URINE BILIRUBIN NEG (NEG); URINE COLOR YELLOW; URINE EPITHELIAL CELL AUTO >30 /lpf (0-5); URINE NITRITE NEG (NEG); URINE SPECIFIC GRAVITY 1.012 (1.000-1.030); UROBILINOGEN NEG (NEG); ZZUR CULT IF INDIC CLEAN CATCH NO
[2017-06-30 00:39] LABS: MANUAL MICROSCOPIC REQUIRED? NO; REVIEW REQ? NO
[2017-06-30] MEDS ORDERED: ONDA8TAB62 SL (01:10)
[2017-06-30 01:26] LABS: ALB/GLOB RATIO 0.9 (0.9-2); ALKALINE PHOSPHATASE 57 U/L (45-117); ALT/SGPT 33 U/L (12-78); BLOOD UREA NITROGEN 5 mg/dl (7-18); BUN/CREATININE RATIO 11.7 (10-20); CALCIUM 8.8 mg/dl (8.5-10.1); CARBON DIOXIDE 22 mmol/L (21-32); CHLORIDE 106 mmol/L (98-107); CREATININE 0.46 mg/dl (0.60-1.20); GLUCOSE 77 mg/dl (70-99); SODIUM 139 mmol/L (136-145)
[2017-06-30] MEDS ORDERED: ACETAMINOPHEN 500 MG TAB PO ONE (01:48)
[2017-06-30 02:17] LABS: BASO % 0.2 %; BASO ABS # 0.02 K/uL (0-0.2); COMPLETE YES; EOS % 2.1 %; HEMATOCRIT 37.6 % (37-47); IG% 0.4 %; LYMPH % 20.4 %; LYMPH ABS # 2.24 K/uL (1.2-3.4); MEAN CELL VOLUME 88.5 fL (80-100); MEAN CORPUSCULAR HEMOGLOBIN 31.3 pg (25-34); MEAN CORPUSCULAR HGB CONC 35.4 g/dl (32-36); MEAN PLATELET VOLUME 9.9 fL (7.4-10.4); MONO % 6.1 %; NEUT % 70.8 %; PLATELET COUNT 135 K/uL (130-400); RED BLOOD COUNT 4.25 M/uL (4.2-5.4); WHITE BLOOD COUNT 10.97 K/uL (4.8-10.8)
[2017-06-30 03:04] LABS: POTASSIUM 3.3 mmol/L (3.5-5.1)
--- NOTE | 2017-06-30 03:22 | EMERGENCY ROOM VISIT NOTE ---
History First contact with patient: 23:55 Chief Complaint: ABDOMINAL PAIN Stated Complaint: ABDOMINAL PAIN,DARK STOOL,VAGINAL PAIN 16 WKS PREG Nursing Triage Summary: Pt reports abdominal pain for the past year. Today patient with vomiting and dark stool. pt is 16 weeks History of Present Illness The patient is a 26 year old female who presents to the Emergency Room with complaints of abdominal pain. The patient reports she is 16 weeks . She states that she has had generalized abdominal pain on and off for the past one year. She has been seen by gastrology multiple times and has had endoscopy and colonoscopy which were negative. She reports that over the past week, she has also had some vaginal pain and was told by her COMMUTATOR INSPECTOR not to have sexual intercourse. She reports that her stools have been slightly darker than normal. She follows with Shaq Matamoros COMMUTATOR INSPECTOR. She denies any associated urinary symptoms. She did have 1 episode of vomiting today, but states this is normal for her during the . She denies any diarrhea or constipation. She has taken Tylenol at home for pain. Review of Systems A complete 10 point review of systems was reviewed with the patient with pertinent positives and negatives as per history of present illness. All else were negative. Past Medical/Surgical History Medical Problems: (1) Acute bronchitis (2) Cigarette nicotine dependence, uncomplicated (3) Depressive Disorder Nec (4) Esophageal Reflux (5) GI bleed (6) Pneumonia, Organism Nos (7) Tobacco use disorder Surgical Problems: (1) History of arthroscopy of shoulder (2) History of cholecystectomy Family History Diabetes mellitus FH: cancer FH: gallbladder disease FH: lung disease Hypertension Kidney disease Kidney stones Seizures Social History Smoking Status: Current Every Day Smoker Alcohol Use: occasionally Marital Status: single Housing Status: lives with family Occupation Status: unemployed Current/Historical Medications Scheduled Multivit-Min W/Fe-Fa (), 1 TAB PO DAILY Scheduled PRN Ondansetron Odt (Zofran Odt), Unknown Dose SL Q8 PRN for Nausea Physical Exam Vital Signs Date Time Temp Pulse Resp B/P (MAP) Pulse Ox O2 Delivery O2 Flow Rate FiO2 06/30/17 03:24 73 18 129/86 98 06/30/17 01:53 81 20 109/80 96 Room Air 06/29/17 23:50 36.9 94 16 137/81 100 Room Air Physical Exam VITALS: Vitals are noted on the nurse's note and reviewed by myself. Vital signs stable. GENERAL: This is a 26-year-old female, in no acute distress, nondiaphoretic, well-developed well-nourished. HEENT: Normocephalic. PERRLA. Mucous membranes moist. HEART: Regular rate and rhythm without murmurs gallops or rubs. LUNGS: Clear to auscultation bilaterally without wheezes, rales or rhonchi. ABDOMEN: Positive bowel sounds x 4. Soft, nondistended. No significant tenderness to palpation. NEURO: Patient was alert and oriented to person place and time. Medical Decision & Procedures ER Provider Diagnostic Interpretation: US OB 2nd TRIMESTER: IUP. Cephalic presentation. heart rate 151 BPM. Posterior/fundal placenta. Radiologist: Lucas Verduzco MD Laboratory Results 06/30/17 02:07 Red Blood Count 4.25, Mean Corpuscular Volume 88.5, Mean Corpuscular Hemoglobin 31.3, Mean Corpuscular Hemoglobin Concent 35.4, Mean Platelet Volume 9.9, Neutrophils (%) (Auto) 70.8, Lymphocytes (%) (Auto) 20.4, Monocytes (%) (Auto) 6.1, Eosinophils (%) (Auto) 2.1, Basophils (%) (Auto) 0.2, Neutrophils # (Auto) 7.77, Lymphocytes # (Auto) 2.24, Monocytes # (Auto) 0.67, Eosinophils # (Auto) 0.23, Basophils # (Auto) 0.02 06/30/17 00:20 06/30/17 02:07 Test 06/30/17 00:15 06/30/17 00:20 06/30/17 02:07 Urine Color YELLOW Urine Appearance CLEAR (CLEAR) Urine pH 6.0 (4.5-7.5) Urine Specific Switchback 1.012 (1.000-1.030) Urine Protein NEG (NEG) Urine Glucose (UA) NEG (NEG) Urine Ketones NEG (NEG) Urine Occult Blood NEG (NEG) Urine Nitrite NEG (NEG) Urine Bilirubin NEG (NEG) Urine Urobilinogen NEG (NEG) Urine Leukocyte Esterase SMALL (NEG) Urine WBC (Auto) 5-10 /hpf (0-5) Urine RBC (Auto) 0-4 /hpf (0-4) Urine Hyaline Casts (Auto) 1-5 /lpf (0-5) Urine Epithelial Cells (Auto) >30 /lpf (0-5) Urine Bacteria (Auto) NEG (NEG) Anion Gap 11.0 mmol/L (3-11) Est Creatinine Clear Calc Drug Dose 216.1 ml/min Estimated GFR () > 150.0 Estimated GFR (Non- 138.3 BUN/Creatinine Ratio 11.7 (10-20) Calcium Level 8.8 mg/dl (8.5-10.1) Total Bilirubin 0.4 mg/dl (0.2-1) Alanine Aminotransferase (ALT/SGPT) 33 U/L (12-78) Alkaline Phosphatase 57 U/L (45-117) Total Protein 6.5 gm/dl (6.4-8.2) Albumin 3.1 gm/dl (3.4-5.0) Globulin 3.4 gm/dl (2.5-4.0) Albumin/Globulin Ratio 0.9 (0.9-2) Lipase 90 U/L (73-393) White Blood Count 10.97 K/uL (4.8-10.8) Red Blood Count 4.25 M/uL (4.2-5.4) Hemoglobin 13.3 g/dL (12.0-16.0) Hematocrit 37.6 % (37-47) Mean Corpuscular Volume 88.5 fL (80-100) Mean Corpuscular Hemoglobin 31.3 pg (25-34) Mean Corpuscular Hemoglobin Concent 35.4 g/dl (32-36) Platelet Count 135 K/uL (130-400) Mean Platelet Volume 9.9 fL (7.4-10.4) Neutrophils (%) (Auto) 70.8 % Lymphocytes (%) (Auto) 20.4 % Monocytes (%) (Auto) 6.1 % Eosinophils (%) (Auto) 2.1 % Basophils (%) (Auto) 0.2 % Neutrophils # (Auto) 7.77 K/uL (1.4-6.5) Lymphocytes # (Auto) 2.24 K/uL (1.2-3.4) Monocytes # (Auto) 0.67 K/uL (0.11-0.59) Eosinophils # (Auto) 0.23 K/uL (0-0.5) Basophils # (Auto) 0.02 K/uL (0-0.2) RDW Standard Deviation 40.8 fL (36.4-46.3) RDW Coefficient of Variation 12.8 % (11.5-14.5) Immature Granulocyte % (Auto) 0.4 % Immature Granulocyte # (Auto) 0.04 K/uL (0.00-0.02) Aspartate Amino Transf (AST/SGOT) 13 U/L (15-37) Medications Administered Medications (Trade) Dose Ordered Sig/Gamal Route Start Time Stop Time Status Last Admin Dose Admin Sodium Chloride 1,000 ml @ 999 mls/hr Q1H1M STAT IV 06/30/17 00:06 06/30/17 01:06 DC 06/30/17 00:28 999 MLS/HR Acetaminophen (Tylenol Tab) 1,000 mg STK-MED ONCE PO 06/30/17 01:48 06/30/17 01:49 DC 06/30/17 01:51 1,000 MG Medical Decision Differential diagnosis includes gastroenteritis, gastritis, colitis, cholecystitis, among others. The patient is a 26-year-old female who presents today complaining of abdominal pain. The patient is 16 weeks . She has had chronic abdominal pain for over one year. She is afebrile. She has had some vomiting, but states this is normal for her . There is a mild leukocytosis consistent with . Labs are otherwise unremarkable. ultrasound was performed and read by statrad as above. Patient was treated with Tylenol and a fluid bolus and felt much better. She will follow-up with COMMUTATOR INSPECTOR. She will call for appointment. The patient's case was reviewed with Dr. Landry, ED attending physician, who agreed with my assessment and treatment plan. Based on the patient's presentation and work up, I feel the patient is stable for outpatient treatment. The patient was educated to return to the emergency department for any worsening of their current condition or new/concerning symptoms. She will follow up with her COMMUTATOR INSPECTOR. Medication Reconcilliation Current Medication List: was personally reviewed by me Blood Pressure Screening Patient's blood pressure: Normal blood pressure Impression Primary Impression: Abdominal pain during Departure Information Dispostion Home / Self-Care Condition GOOD Referrals Chelsea Soliz D.OAl (PCP) Patient Instructions My [facility] Additional Instructions Tylenol as needed for pain. Rest and drink plenty of fluids. Follow-up with your COMMUTATOR INSPECTOR. Call tomorrow for appointment. Return here for any worsening or new/concerning symptoms.
[2017-06-30 03:24] VITALS: BP 129/86; PULSE 73; O2SAT 98
--- NOTE | 2017-06-30 07:46 | DIAGNOSTIC IMAGING REPORT ---
ULTRASOUND LIMITED CLINICAL HISTORY: Generalized abdominal pain. Reportedly 16 weeks . COMPARISON STUDY: ultrasound dated 04/23/2017. FINDINGS: Real-time grayscale and color Doppler sonography of the fetus and gravid uterus is performed. There is a single live intrauterine gestation with an estimated heart rate of 151 bpm. The placenta is posterior and fundal. Positioning is cephalic. The amniotic fluid volume is grossly normal. The cervix is normal as imaged. IMPRESSION: There is a single live uterine gestation. Note that this does not constitute a dedicated anatomic scan. Electronically signed by: Satish Andrade M.D. 06/30/2017 7:44 AM Dictated Date/Time: 06/30/2017 7:42 AM
== END 2017-06-30 03:26 | disposition home or self-care (01) ==
LOC: C.EDB 23:48 → C.EDA 06-30 03:26
DX: O26.892 Other specified pregnancy related conditions, second trimester (principal); R10.9 Unspecified abdominal pain; Z3A.16 16 weeks gestation of pregnancy; O99.332 Smoking (tobacco) complicating pregnancy, second trimester; F17.210 Nicotine dependence, cigarettes, uncomplicated; O99.342 Other mental disorders complicating pregnancy, second trimester; F32.9 Major depressive disorder, single episode, unspecified; O99.612 Diseases of the digestive system complicating pregnancy, second trimester; K21.9 Gastro-esophageal reflux disease without esophagitis; Z87.01 Personal history of pneumonia (recurrent); Z83.3 Family history of diabetes mellitus; Z80.9 Family history of malignant neoplasm, unspecified; Z83.79 Family history of other diseases of the digestive system; Z83.6 Family history of other diseases of the respiratory system; Z82.49 Family history of ischemic heart disease and other diseases of the circulatory system; Z84.1 Family history of disorders of kidney and ureter

== ENCOUNTER → 2017-07-04 | Outpatient (CLI) | payer OTHER ==
[~2017-07-04] MED LIST changes: +ONDA8TAB62 SL
[2017-07-04 14:19] LABS: GTGD 50 Grams
== END | disposition home or self-care (01) ==
LOC: C.LAB1850 12:03
PROVIDERS: ATTEND Obstetrics & Gynecology
DX: Z34.02 Encounter for supervision of normal first pregnancy, second trimester (principal)

== ENCOUNTER 2017-07-15 15:41 | Outpatient (CLI) | payer OTHER ==
[2017-07-15 18:57] LABS: BASO % 0.1 %; BASO ABS # 0.01 K/uL (0-0.2); COMPLETE YES; EOS % 1.1 %; HEMATOCRIT 38.6 % (37-47); IG% 0.5 %; LYMPH % 12.4 %; LYMPH ABS # 1.53 K/uL (1.2-3.4); MEAN CELL VOLUME 87.5 fL (80-100); MEAN CORPUSCULAR HEMOGLOBIN 30.6 pg (25-34); MEAN PLATELET VOLUME 10.7 fL (7.4-10.4); MONO % 7.6 %; NEUT % 78.3 %; PLATELET COUNT 162 K/uL (130-400); RED BLOOD COUNT 4.41 M/uL (4.2-5.4); WHITE BLOOD COUNT 12.35 K/uL (4.8-10.8)
--- NOTE | 2017-07-15 19:41 | DIAGNOSTIC IMAGING REPORT ---
LIMITED ULTRASONOGRAPHY CLINICAL HISTORY: Premature rupture of the membranes. previable fetus. COMPARISON STUDY: 06/30/2017 FINDINGS: A single live fetus in cephalic presentation was identified. The placenta is posterior left lateral. The BPD measures 43 mm, the head circumference 154 mm, the abdominal circumference 122 mm, and the femur 29 mm. These measurements correspond to an estimated postmenstrual age of 18 weeks and 3 days. heart rate is 143. There was limited visualization of the cervix. The estimated cervical length is 3.6 cm. The amniotic fluid index was 8.6 cm. A anatomic study was not performed IMPRESSION: 1. Single alive intrauterine gestation in cephalic presentation. The estimated postmenstrual age is 18 weeks 3 days 2. Amniotic fluid index of 8.6 cm. 3. A anatomic study was not performed. Electronically signed by: Tucker Delong M.D. 07/15/2017 7:40 PM Dictated Date/Time: 07/15/2017 7:37 PM
--- NOTE | 2017-07-15 20:27 | Discharge Instructions ---
Discharge Instructions Date of Service Jul 15, 2017. Admission Reason for Admission: Premature Rupture Membranes Discharge Discharge Diagnosis / Problem: 18 WEEKS , PRMATURE RUPTURE OF MEMBRANES Discharge Goals Goal(s): Continuing OB care Activity Recommendations Activity Limitations: per Instructions/Follow-up section . Instructions / Follow-Up Instructions / Follow-Up ACTIVITY RECOMMENDATIONS: See Labor Sheet. SPECIAL CARE INSTRUCTIONS: NOTHING in the vagina. Call Doctor if: * Regular cramping. * Bleeding of any kind * Fever >100.4 degrees F--please take your temperature twice daily * Foul smell to the amniotic fluid FOLLOW UP VISIT: Follow-up Visit with: __ob___ When:__next week.___ Please call the office on Tuesday to make this appointment. Current Hospital Diet Patient's current hospital diet: Regular OB Diet Discharge Diet Recommended Diet: Regular Diet Pending Studies Studies pending at discharge: no Medical Emergencies . Who to Call and When: Medical Emergencies: If at any time you feel your situation is an emergency, please call 911 immediately. . Non-Emergent Contact Non-Emergency issues call your: Abattoir Supervisor . . "Provider Documentation" section prepared by Aysha Hall. . VTE Core Measure Inpt VTE Proph given/why not?: Treatment not indicated
== END 2017-07-15 20:40 | disposition home or self-care (01) ==
LOC: C.OPB 15:41 → C.LD 15:41 → C.OPB 20:40
PROVIDERS: ATTEND Obstetrics & Gynecology
DX: O42.912 Preterm premature rupture of membranes, unspecified as to length of time between rupture and onset of labor, second trimester (principal); Z3A.18 18 weeks gestation of pregnancy

== ENCOUNTER → 2017-07-15 | Outpatient (CLI) | payer OTHER | END | disposition home or self-care (01) | LOC: C.LAB1850 07:07 | PROVIDERS: ATTEND Obstetrics & Gynecology | DX: O28.1 Abnormal biochemical finding on antenatal screening of mother (principal) ==

== ENCOUNTER 2017-07-17 03:57 | Outpatient (CLI) | payer OTHER ==
[~2017-07-17] VITALS: Ht 157.5 cm; Wt 100.0 kg
[2017-07-17] MEDS ORDERED: LACTATED RINGER'S 1000ML 500 ML IV ONE (04:02)
[2017-07-17] MEDS ORDERED: LACTATED RINGER'S 1000ML 1,000 ML IV SCH (04:02)
[2017-07-17 04:28] LABS: BASO % 0.2 %; BASO ABS # 0.02 K/uL (0-0.2); COMPLETE YES; EOS % 1.3 %; HEMATOCRIT 36.6 % (37-47); IG% 0.3 %; LYMPH % 12.6 %; LYMPH ABS # 1.61 K/uL (1.2-3.4); MEAN CELL VOLUME 87.8 fL (80-100); MEAN CORPUSCULAR HEMOGLOBIN 31.7 pg (25-34); MEAN CORPUSCULAR HGB CONC 36.1 g/dl (32-36); MEAN PLATELET VOLUME 9.9 fL (7.4-10.4); MONO % 7.4 %; NEUT % 78.2 %; PLATELET COUNT 161 K/uL (130-400); RED BLOOD COUNT 4.17 M/uL (4.2-5.4); WHITE BLOOD COUNT 12.78 K/uL (4.8-10.8)
[2017-07-17 05:55] VITALS: Ht 157.5 cm; Wt 100.0 kg
== END 2017-07-17 07:35 | disposition home or self-care (01) ==
LOC: C.OPB 03:57 → C.LD 03:57 → C.OPB 07:35
PROVIDERS: ATTEND Obstetrics & Gynecology
DX: O42.912 Preterm premature rupture of membranes, unspecified as to length of time between rupture and onset of labor, second trimester (principal); Z3A.18 18 weeks gestation of pregnancy

== ENCOUNTER → 2017-07-19 | Outpatient (CLI) | payer OTHER ==
[2017-07-19 13:17] LABS: BASO % 0.1 %; BASO ABS # 0.02 K/uL (0-0.2); COMPLETE YES; HEMATOCRIT 38.3 % (37-47); IG% 0.4 %; LYMPH % 12.8 %; LYMPH ABS # 1.77 K/uL (1.2-3.4); MEAN CELL VOLUME 89.3 fL (80-100); MEAN CORPUSCULAR HEMOGLOBIN 31.7 pg (25-34); MEAN CORPUSCULAR HGB CONC 35.5 g/dl (32-36); MEAN PLATELET VOLUME 10.6 fL (7.4-10.4); MONO % 6.4 %; NEUT % 79.3 %; PLATELET COUNT 187 K/uL (130-400); RED BLOOD COUNT 4.29 M/uL (4.2-5.4); WHITE BLOOD COUNT 13.86 K/uL (4.8-10.8)
== END | disposition home or self-care (01) ==
LOC: C.LAB1850 11:38
PROVIDERS: ATTEND Obstetrics & Gynecology
DX: O42.919 Preterm premature rupture of membranes, unspecified as to length of time between rupture and onset of labor, unspecified trimester (principal)

== ENCOUNTER 2017-07-21 00:21 | Outpatient (CLI) | payer OTHER ==
[2017-07-21 01:20] LABS: BASO % 0.2 %; BASO ABS # 0.02 K/uL (0-0.2); COMPLETE YES; EOS % 1.4 %; HEMATOCRIT 36.2 % (37-47); IG% 0.5 %; LYMPH % 15.6 %; LYMPH ABS # 2.07 K/uL (1.2-3.4); MEAN CELL VOLUME 88.3 fL (80-100); MEAN CORPUSCULAR HEMOGLOBIN 32.7 pg (25-34); MEAN PLATELET VOLUME 10.4 fL (7.4-10.4); MONO % 8.1 %; NEUT % 74.2 %; PLATELET COUNT 166 K/uL (130-400); WHITE BLOOD COUNT 13.24 K/uL (4.8-10.8)
[2017-07-21 03:45] LABS: MANUAL MICROSCOPIC REQUIRED? NO; REVIEW REQ? NO; URINE APPEARANCE CLEAR (CLEAR); URINE BILIRUBIN NEG (NEG); URINE COLOR YELLOW; URINE NITRITE NEG (NEG); URINE PH 6.5 (4.5-7.5); URINE SPECIFIC GRAVITY 1.007 (1.000-1.030); UROBILINOGEN NEG (NEG)
== END 2017-07-21 04:28 | disposition home or self-care (01) ==
LOC: C.OPB 00:21 → C.LD 00:21 → C.OPB 04:28
PROVIDERS: ATTEND Obstetrics & Gynecology
DX: O42.912 Preterm premature rupture of membranes, unspecified as to length of time between rupture and onset of labor, second trimester (principal); Z3A.18 18 weeks gestation of pregnancy

== ENCOUNTER → 2017-07-25 | Outpatient (CLI) | payer OTHER ==
[2017-07-25 13:07] LABS: HEMATOCRIT 39.9 % (37-47); MEAN CELL VOLUME 89.5 fL (80-100); MEAN CORPUSCULAR HEMOGLOBIN 30.9 pg (25-34); MEAN CORPUSCULAR HGB CONC 34.6 g/dl (32-36); MEAN PLATELET VOLUME 10.4 fL (7.4-10.4); PLATELET COUNT 176 K/uL (130-400); RED BLOOD COUNT 4.46 M/uL (4.2-5.4); WHITE BLOOD COUNT 13.65 K/uL (4.8-10.8)
== END | disposition home or self-care (01) ==
LOC: C.LAB1850 11:04
PROVIDERS: ATTEND Obstetrics & Gynecology
DX: O42.919 Preterm premature rupture of membranes, unspecified as to length of time between rupture and onset of labor, unspecified trimester (principal); Z3A.00 Weeks of gestation of pregnancy not specified

== ENCOUNTER → 2017-08-04 | Outpatient (CLI) | payer OTHER ==
[2017-08-04 12:15] LABS: BASO % 0.1 %; BASO ABS # 0.02 K/uL (0-0.2); COMPLETE YES; HEMATOCRIT 38.5 % (37-47); IG% 0.4 %; LYMPH % 13.1 %; LYMPH ABS # 1.85 K/uL (1.2-3.4); MEAN CELL VOLUME 90.6 fL (80-100); MEAN CORPUSCULAR HEMOGLOBIN 31.3 pg (25-34); MEAN CORPUSCULAR HGB CONC 34.5 g/dl (32-36); MEAN PLATELET VOLUME 10.2 fL (7.4-10.4); MONO % 6.1 %; NEUT % 79.3 %; PLATELET COUNT 197 K/uL (130-400); RED BLOOD COUNT 4.25 M/uL (4.2-5.4); WHITE BLOOD COUNT 14.09 K/uL (4.8-10.8)
== END | disposition home or self-care (01) ==
LOC: C.LAB1850 09:57
PROVIDERS: ATTEND Obstetrics & Gynecology
DX: O42.919 Preterm premature rupture of membranes, unspecified as to length of time between rupture and onset of labor, unspecified trimester (principal); Z3A.00 Weeks of gestation of pregnancy not specified

== ENCOUNTER → 2017-08-08 | Outpatient (CLI) | payer OTHER ==
[2017-08-08 11:04] LABS: BASO % 0.2 %; BASO ABS # 0.02 K/uL (0-0.2); COMPLETE YES; EOS % 1.3 %; HEMATOCRIT 37.7 % (37-47); IG% 0.5 %; LYMPH % 12.2 %; LYMPH ABS # 1.55 K/uL (1.2-3.4); MEAN CELL VOLUME 89.8 fL (80-100); MEAN CORPUSCULAR HEMOGLOBIN 31.7 pg (25-34); MEAN CORPUSCULAR HGB CONC 35.3 g/dl (32-36); MONO % 4.4 %; NEUT % 81.4 %; PLATELET COUNT 189 K/uL (130-400); WHITE BLOOD COUNT 12.74 K/uL (4.8-10.8)
== END | disposition home or self-care (01) ==
LOC: C.LAB1850 09:25
PROVIDERS: ATTEND Obstetrics & Gynecology
DX: O42.919 Preterm premature rupture of membranes, unspecified as to length of time between rupture and onset of labor, unspecified trimester (principal)

== ENCOUNTER → 2017-08-12 | Outpatient (CLI) | payer OTHER ==
[2017-08-12 12:09] LABS: BASO % 0.2 %; BASO ABS # 0.02 K/uL (0-0.2); COMPLETE YES; EOS % 0.8 %; HEMATOCRIT 40.8 % (37-47); IG% 0.5 %; LYMPH % 13.1 %; LYMPH ABS # 1.69 K/uL (1.2-3.4); MEAN CELL VOLUME 90.5 fL (80-100); MEAN CORPUSCULAR HEMOGLOBIN 31.5 pg (25-34); MEAN CORPUSCULAR HGB CONC 34.8 g/dl (32-36); MEAN PLATELET VOLUME 10.6 fL (7.4-10.4); MONO % 5.3 %; NEUT % 80.1 %; PLATELET COUNT 180 K/uL (130-400); RED BLOOD COUNT 4.51 M/uL (4.2-5.4); WHITE BLOOD COUNT 12.93 K/uL (4.8-10.8)
== END | disposition home or self-care (01) ==
LOC: C.LAB1850 10:39
PROVIDERS: ATTEND Obstetrics & Gynecology
DX: O42.919 Preterm premature rupture of membranes, unspecified as to length of time between rupture and onset of labor, unspecified trimester (principal)

== ENCOUNTER → 2017-08-25 | Outpatient (CLI) | payer OTHER ==
[2017-08-25 13:18] LABS: BASO % 0.1 %; BASO ABS # 0.02 K/uL (0-0.2); COMPLETE YES; EOS % 1.2 %; HEMATOCRIT 39.6 % (37-47); IG% 0.5 %; LYMPH % 13.5 %; LYMPH ABS # 1.97 K/uL (1.2-3.4); MEAN CELL VOLUME 90.4 fL (80-100); MEAN CORPUSCULAR HEMOGLOBIN 31.3 pg (25-34); MEAN CORPUSCULAR HGB CONC 34.6 g/dl (32-36); MEAN PLATELET VOLUME 10.4 fL (7.4-10.4); NEUT % 78.7 %; PLATELET COUNT 183 K/uL (130-400); RED BLOOD COUNT 4.38 M/uL (4.2-5.4); WHITE BLOOD COUNT 14.56 K/uL (4.8-10.8)
== END | disposition home or self-care (01) ==
LOC: C.LAB1850 11:48
PROVIDERS: ATTEND Obstetrics & Gynecology
DX: O42.919 Preterm premature rupture of membranes, unspecified as to length of time between rupture and onset of labor, unspecified trimester (principal)

== ENCOUNTER → 2017-09-06 | Outpatient (CLI) | payer OTHER ==
[2017-09-06 13:25] LABS: BASO % 0.1 %; BASO ABS # 0.02 K/uL (0-0.2); COMPLETE YES; EOS % 0.9 %; HEMATOCRIT 38.8 % (37-47); IG% 0.4 %; LYMPH % 12.6 %; LYMPH ABS # 1.96 K/uL (1.2-3.4); MEAN CELL VOLUME 88.4 fL (80-100); MEAN CORPUSCULAR HEMOGLOBIN 31.9 pg (25-34); MEAN CORPUSCULAR HGB CONC 36.1 g/dl (32-36); MEAN PLATELET VOLUME 10.4 fL (7.4-10.4); MONO % 7.8 %; NEUT % 78.2 %; PLATELET COUNT 167 K/uL (130-400); RED BLOOD COUNT 4.39 M/uL (4.2-5.4); WHITE BLOOD COUNT 15.59 K/uL (4.8-10.8)
== END | disposition home or self-care (01) ==
LOC: C.LAB1850 12:26
PROVIDERS: ATTEND Obstetrics & Gynecology
DX: O42.919 Preterm premature rupture of membranes, unspecified as to length of time between rupture and onset of labor, unspecified trimester (principal)

== ENCOUNTER → 2017-09-09 | Outpatient (CLI) | payer OTHER ==
[2017-09-09 14:33] LABS: BASO % 0.1 %; BASO ABS # 0.02 K/uL (0-0.2); COMPLETE YES; EOS % 0.7 %; HEMATOCRIT 38.4 % (37-47); IG% 0.3 %; MEAN CELL VOLUME 90.1 fL (80-100); MEAN CORPUSCULAR HEMOGLOBIN 31.7 pg (25-34); MEAN CORPUSCULAR HGB CONC 35.2 g/dl (32-36); MEAN PLATELET VOLUME 10.4 fL (7.4-10.4); MONO % 5.7 %; NEUT % 81.2 %; PLATELET COUNT 163 K/uL (130-400); RED BLOOD COUNT 4.26 M/uL (4.2-5.4); WHITE BLOOD COUNT 15.02 K/uL (4.8-10.8)
== END | disposition home or self-care (01) ==
LOC: C.LAB1850 13:42
PROVIDERS: ATTEND Obstetrics & Gynecology
DX: O42.919 Preterm premature rupture of membranes, unspecified as to length of time between rupture and onset of labor, unspecified trimester (principal)

== ENCOUNTER 2017-09-30 21:06 | Emergency (ER) | payer OTHER ==
[~2017-09-30] VITALS: Ht 160 cm; Wt 105.5 kg
[2017-09-30 21:08] VITALS: TEMP 36.8; Ht 160 cm; Wt 105.5 kg
[2017-09-30] MEDS ORDERED: KETOROLAC TROMETHAMINE 60 MG/2 ML VIAL IM STA (21:24)
--- NOTE | 2017-09-30 22:09 | EMERGENCY ROOM VISIT NOTE ---
ED Visit Note First contact with patient: 21:13 CHIEF COMPLAINT: Right thigh pain HISTORY OF PRESENT ILLNESS: This 27-year-old female presents to the emergency department with complaint of pain and tingling in her right thigh that started yesterday. The pain developed gradually, and has been getting progressively worse. She states the pain is particularly worse after a period of immobility when she first gets up to walk around. She describes the pain as sharp and stabbing in the front of her thigh above her knee wrapping around the sides of her thigh. She also reports some tingling, and states "it feels sort of numb." She denies any fevers or chills, leg swelling or redness, weakness in the legs , difficulty walking, chest pain, shortness of breath, back pain, saddle paresthesias, bowel or bladder dysfunction. Patient states that she had an emergency 5 days ago, discharged home 2 days ago. She states she did not have any epidural or spinal injections in her back. She states that her incision has been doing well and her abdominal pain post surgery has been improving. She has been taking ibuprofen and oxycodone for her post-op pain, with some improvement in her leg pain as well. There is no history of blood clots in the veins of the legs. REVIEW OF SYSTEMS: A complete 10 point review of systems was reviewed with the patient with pertinent positives and negatives as per history of present illness. All else were negative. PMH: The patient is healthy; there is no significant medical or surgical history. SOCIAL HISTORY: Patient lives at home. ALLERGIES: Reviewed in chart PHYSICAL EXAM: Vital Signs: Reviewed Nurse's notes. HEART: Regular rate and rhythm without murmurs, ectopy, gallops, or rubs. LUNGS: Clear to auscultation and breath sounds equal, no wheezes, rales, or rhonchi. ABDOMEN: Soft, non- tender, no hepatosplenomegaly, or masses. Low horizontal surgical incision is intact, dressing in place, clean and dry. Mildly tender to palpation. NEUROLOGICAL: Alert and oriented, coherent. PERRL, EOMI, gait normal. Normal 5/5 strength of the bilateral lower extremities, sensation intact to light touch , distinguishes sharp and dull to both legs in all distributions. 2+ Achilles and patellar DTRs and equal bilaterally. EXTREMITIES: No cyanosis, edema, joint tenderness or effusion. Pulses equal bilaterally. There is tenderness to the anterior and medial right thigh, there is no erythema or swelling noted. There is no redness, swelling, or tenderness of the right knee or calf. No cords can be palpated and Musa's sign is negative. The skin of the affected area is not warmer than the other leg. There is no lymphangitic streaking. IMAGING: RIGHT LOWER EXTREMITY VENOUS DOPPLER CLINICAL HISTORY: Right thigh pain. COMPARISON STUDY: No previous studies for comparison. TECHNIQUE: Sonography of the deep venous system of the right lower extremity was performed. Compression and augmentation were evaluated. FINDINGS: The common femoral, superficial femoral and popliteal veins were compressible. Augmentation was normal. Flow was shown within the deep calf vessels. IMPRESSION: No evidence of deep venous thrombus within the right lower extremity. EMERGENCY DEPARTMENT COURSE: I examined the patient. Differential diagnosis includes DVT, musculoskeletal pain, sciatica, among others. Patient has subjective sensory changes to the anterior right thigh, but she is able to feel light touch and distinguish sharp and dull. Ultrasound exam of the right leg does not show any evidence of deep venous thrombosis or other abnormality. Patient's pain was treated with IM Toradol, she reports improved pain. I suspect the patient's pain is related to positioning during her . She was encouraged to follow up with her PCP if her symptoms do not improve, and was also given strict return precautions should her symptoms worsen, she verbalized understanding. Patient was discharged home in stable condition and ambulatory. Problem List Medical Problems: (1) Acute bronchitis Status: Resolved Current/Historical Medications Scheduled PRN Acetaminophen Tab (Tylenol), 650 MG PO Q6 PRN for Headache or Pain Ibuprofen Tab (Motrin), 800 MG PO Q8H PRN for Pain Ondansetron Hcl (Zofran), 4 MG PO Q8 PRN for Nausea Oxycodone Ir (Roxicodone Ir), 5 MG PO Q4H PRN for Severe Pain Allergies Coded Allergies: Penicillins (Verified Allergy, Severe, RASH, 07/21/17) Vital Signs Date Time Temp Pulse Resp B/P (MAP) Pulse Ox O2 Delivery O2 Flow Rate FiO2 09/30/17 22:35 80 20 139/94 96 Room Air 09/30/17 21:08 36.8 100 18 140/86 98 Room Air Medications Administered Medications (Trade) Dose Ordered Sig/Gamal Route Start Time Stop Time Status Last Admin Dose Admin Ketorolac Tromethamine (Toradol Inj) 60 mg NOW STAT IM 09/30/17 21:24 09/30/17 21:27 DC 09/30/17 21:42 60 MG Departure Information Impression Primary Impression: Right thigh pain Dispostion Home / Self-Care Condition GOOD Referrals Chelsea Soliz D.O. (PCP) Patient Instructions ED Muscle Pain Leg Cramps, My [facility] Additional Instructions You were evaluated in the emergency department today for your right leg pain. Ultrasound study today is NEGATIVE for a blood clot. Alternate ice and heat to your right thigh for comfort. You may do gentle stretching exercises of your hip and thigh as discussed. For pain, you may take the following medications: - Ibuprofen 600 mg every 6-8 hours as needed, not more than 2400 mg in 24 hours - Tylenol 1000 mg every 8 hours as needed, not more than 3000 mg in 24 hours Take your prescribed oxycodone as directed. Keep in mind that this is a narcotic and can make you drowsy, and may also cause constipation when taken for a prolonged period of time. You should take a daily stool softener and drink plenty of fluids to help avoid constipation. Follow-up with your primary care provider in the next few days if your symptoms are not improving. Please return to the emergency department for any worsening symptoms, including severe worsening pain, complete numbness or weakness in the legs, difficulty walking, numbness in your groin area, incontinence of your bowels or bladder, severe low back pain, fevers > 101.5, or any other concerns.
[2017-09-30 22:35] VITALS: BP 139/94; PULSE 80; O2SAT 96
--- NOTE | 2017-09-30 22:35 | DIAGNOSTIC IMAGING REPORT ---
RIGHT LOWER EXTREMITY VENOUS DOPPLER CLINICAL HISTORY: Right thigh pain. COMPARISON STUDY: No previous studies for comparison. TECHNIQUE: Sonography of the deep venous system of the right lower extremity was performed. Compression and augmentation were evaluated. FINDINGS: The common femoral, superficial femoral and popliteal veins were compressible. Augmentation was normal. Flow was shown within the deep calf vessels. IMPRESSION: No evidence of deep venous thrombus within the right lower extremity. Electronically signed by: Terry Rosenthal M.D. 09/30/2017 10:34 PM Dictated Date/Time: 09/30/2017 10:33 PM
[2017-09-30] MEDS ORDERED: ONDA4TAB46 PO (22:36)
[2017-09-30] MEDS ORDERED: ACET325T96 PO (22:38)
[2017-09-30] MEDS ORDERED: IBUP-1451 PO (22:38)
[2017-09-30] MEDS ORDERED: OXYC1TAB3 PO (22:38)
== END 2017-09-30 23:00 | disposition home or self-care (01) ==
LOC: C.EDB 21:07 → C.EDA 23:00
DX: M79.651 Pain in right thigh (principal)

== ENCOUNTER 2019-04-02 11:57 | Inpatient (IN) ==
--- OUTSIDE RECORDS SUMMARY | 2019-04-02 12:00 | External Medical Summary | Continuity of Care Document ---
:1990 Author Name Oracio Carrasco, Provider Address Unavailable Unavailable , Care Team Providers Name Role Phone Unavailable Unavailable Unavailable Aysha Hall M.D. Unavailable [email or web address] Padilla Unavailable Unavailable Unavailable Unavailable Unavailable Problems depression (648.44) (O99.345) Allergies and Adverse Reactions Penicillins (Allergy) Medications Nexplanon 68 MG Subcutaneous Implant; USE Elijah CLAY Start: 11-Nov-2017 Refills: 0 Zofran Danilo PRADO Refills: 0 Sertraline HCl - 100 MG Oral Tablet; Take one (1) tabl et(s) daily Danilo Hall Start: 07-Dec-2017 Quantity: 30 Refills: 3 Procedures History of wisdom tooth extraction Statu s: Completed History of cholecystectomy Status: Compl eted History of section classical St atus: Completed Immunizations Fluzone Quadrivalent 0.5 ML Intramuscular Suspension On: 9 11:35 Lot #: [id number], [employer] PASTEUR Family History Mother Family history of diabetes mellitus (V18.0) (Z83.3) Status: Active Family history of hypertension (V17.49) (Z82.49) Status: Act rachel Family history of Bilateral kidney stones (592.0) (N20.0) St atus: Active Grandmother Family history of diabetes mellitus (V18.0) (Z83.3) Status: Active Family history of hypothyroidism (V18.19) (Z83.49) Status: A ctive Grandfather Family history of diabetes mellitus (V18.0) (Z83.3) Status: Active Plan of Treatment Planned Observations Planned Goals not documented Results No Known Results Results not documented Encounters Appointment; Aysha Hall M.D. 07-Dec-2017 12:30 Encounter Diagnosis: Problem not documented Appointment; Aysha Hall M.D. 11-Nov-2017 11:50 Encounter Diagnosis: Problem not documented Appointment; Aysha Hall M.D. 20-Oct-2017 13:40 Encounter Diagnosis: Problem not documented Appointment; Bernadette Huff M.D. 12-Sep-2017 11:20 Encounter Diagnosis: Problem not documented Appointment; Aysha Hall M.D. 06-Sep-2017 11:50 Encounter Diagnosis: Problem not documented Appointment; Aysha Hall M.D. 25-Aug-2017 11:40 Encounter Diagnosis: Problem not documented Appointment; Kesha Hughes M.D. 17-Aug-2017 14:00 Encounter Diagnosis: Problem not documented Appointment; Zack Jones M.D. 12-Aug-2017 10:30 Encounter Diagnosis: Problem not documented Appointment; Aysha Hall M.D. 04-Aug-2017 9:30 Encounter Diagnosis: Problem not documented Appointment; Kesha Hughes M.D. 25-Jul-2017 10:50 Encounter Diagnosis: Problem not documented Appointment; OBGYN SC1, Ultrasound 25-Jul-2017 10:15 Encounter Diagnosis: Problem not documented Appointment; Aysha Hall M.D. 19-Jul-2017 11:00 Encounter Diagnosis: Problem not documented Appointment; OBGYN SC1, Ultrasound 19-Jul-2017 10:15 Encounter Diagnosis: Problem not documented Appointment; Zack Jones M.D. 15-Jul-2017 14:50 Encounter Diagnosis: Problem not documented Appointment; Aysha Hall M.D. 04-Jul-2017 11:30 Encounter Diagnosis: Problem not documented Appointment; Maribel Bess M.D. 09-Jun-2017 10:30 Encounter Diagnosis: Problem not documented Appointment; Bernadette Huff M.D. 10-May-2017 15:50 Encounter Diagnosis: Problem not documented Appointment; OBGYN SC1, Ultrasound 10-May-2017 15:15 Encounter Diagnosis: Problem not documented Appointment; OB SC1, Procedure Rm 03-May-2017 14:40 Encounter Diagnosis: Problem not documented Appointment; Eva Alston DO 03-May-2017 14:40 Encounter Diagnosis: Problem not documented Appointment; OB SC1, Nursing [facility] 25-Apr-2017 15:00 Encounter Diagnosis: Problem not documented Appointment; OBGYN SC2, Ultrasound 25-Apr-2017 14:30 Encounter Diagnosis: Problem not documented
--- NOTE | 2019-04-02 12:38 | Emergency Department Note ---
History of Present Illness General Chief complaint: Neuro Symptoms/Deficit Stated complaint: LEFT SIDE WENT "", FALL,LEFT ARM WOULDNT MOVE Time Seen by Provider: 04/02/19 12:22 History of Present Illness This is a 28-year-old female that presents to the emergency department via private vehicle with complaints of "left side went "", fall, left arm would not move". The patient states that earlier today she was taking care of her son with the nurse at home. She notes that she went upstairs in her home to use the bathroom and smoke when she notes that when she went into the bathroom her left arm and leg around 10 AM went completely numb. She states that they were "", and she states that this caused her to fall into the shower. She notes that she did not lose consciousness. There is no speech trouble. This was completely isolated to the left arm and left leg. She notes that the left arm was much worse than the leg noting that when she went to pull her pants down to use the bathroom the left arm felt as it was working but was not moving at all. This lasted for about 10 to 20 minutes. She then notes that since then she has felt other ruiz okay just little bit tired noting she did not sleep well last night because her son was up. Other than the incident today she notes no chroni c medical problems. She did take ibuprofen, Zoloft and Claritin as usual this morning. She denies any chest pain, shortness of breath, headache, fevers, chills, diarrhea. No recent illness. She did state that she has a history of cholecystectomy, foot surgery, . No history of seizures. Home Medications Home Medications Medication Instructions Recorded Confirmed Type ibuprofen 800 mg PO TID PRN 09/22/18 04/02/19 History ondansetron 4 mg PO Q8H PRN #10 tab 09/22/18 04/02/19 Rx metformin 500 mg PO DAILY 04/02/19 04/02/19 History sertraline [Zoloft] 50 mg PO DAILY 04/02/19 04/02/19 History Allergies Allergy/AdvReac Type Severity Reaction Status Date / Time Penicillins Allergy Severe RASH Verified 04/02/19 13:15 tramadol Allergy Mild Chest Pain Unverified 04/02/19 13:15 Past Med/Surg History Medical History Tobacco use disorder Cigarette nicotine dependence, uncomplicated No acute medical problems Social History Preferred Language: Peruvian Feels Safe at Home: Yes Smoking Status: Current every day smoker Review of Systems A total of 10 systems reviewed and were otherwise negative Physical Exam Vital Signs Vital Signs - 24 hr 04/02/19 12:05 04/02/19 12:56 04/02/19 13:01 Temperature 37 C Temperature Source Oral Sepsis Recent Fever Within 48 Hours No Sepsis New/Unexplained Change in Mental Status No Sepsis Action Taken by Nursing No Action Required Pulse Rate 99 H Pulse Rate [Apical] 81 Pulse Rate from SpO2 Sensor Respiratory Rate 20 19 Blood Pressure 141/98 H Blood Pressure [Right Arm] 138/98 Blood Pressure Mean 112 Blood Pressure Mean [Right Arm] 111 Pulse Oximetry 96 93 95 Oxygen Delivery Method Room Air Room Air Room Air 04/02/19 13:30 04/02/19 14:18 04/02/19 14:30 Temperature Temperature Source Sepsis Recent Fever Within 48 Hours Sepsis New/Unexplained Change in Mental Status Sepsis Action Taken by Nursing Pulse Rate 82 71 78 Pulse Rate [Apical] 76 Pulse Rate from SpO2 Sensor 79 70 77 Respiratory Rate 18 22 20 Blood Pressure 136/86 115/82 134/87 Blood Pressure [Right Arm] 115/82 Blood Pressure Mean 102 93 102 Blood Pressure Mean [Right Arm] 93 Pulse Oximetry 95 95 98 Oxygen Delivery Method Room Air Room Air 04/02/19 15:00 04/02/19 15:33 04/02/19 16:00 Temperature Temperature Source Sepsis Recent Fever Within 48 Hours Sepsis New/Unexplained Change in Mental Status Sepsis Action Taken by Nursing Pulse Rate 75 102 H 93 H Pulse Rate [Apical] Pulse Rate from SpO2 Sensor 76 102 H 94 H Respiratory Rate 16 25 H 31 H Blood Pressure 119/76 158/72 H 134/92 Blood Pressure [Right Arm] Blood Pressure Mean 90 100 106 Blood Pressure Mean [Right Arm] Pulse Oximetry 97 93 93 Oxygen Delivery Method Room Air VITAL SIGNS - Vital signs and nursing notes were reviewed. Stable and afebrile. GENERAL -28-year-old female appearing her stated age who is in no acute distress. Communicates well with provider and answers questions appropriately. SKIN - Without rashes. No meningeal or petechial rash. HEAD - NC/AT. EYES - PERRL with EOMI bilaterally. Sclera anicteric. EARS - No deformities of external structures noted on gross examination bilaterally. NOSE - Midline and without cyanosis. No epistaxis or purulent drainage noted. MOUTH/OROPHARYNX - Without perioral cyanosis. NECK - Neck with FROM. Supple to palpation. No lymphadenopathy noted. No nuchal rigidity. LUNGS - Chest wall symmetric without accessory muscle use, intercostals retractions, or central cyanosis. Normal vesicular breath sounds CTA B/L. No wheezes, rales, or rhonchi appreciated. CARDIAC - RRR with S1/S2. No murmur, rubs, or gallops appreciated. ABDOMEN - Abdominal contour normal without pulsations or visible masses. BS normoactive all four quadrants. No tenderness, palpable masses, hepatospl enomegaly, or ascites noted. EXTREMITIES - No clubbing or peripheral cyanosis. No pretibial edema present. +5/5 strength noted in UE/LE bilaterally. Sales Professional strength in the upper extremities is within normal limits. There are no deficits on my examination in regard to neurovascular status. NEUROLOGIC - Cranial nerves II through XII grossly intact. PSYCH - A&O, and cooperates fully with examiner. Pt is very pleasant and interacts well with examiner. Course Administered Medications Gadobutrol (Gadavist 65ml) 9.5 ml IV ONCE PRN PRN Reason: Interaction Checking Stop: 04/06/19 17:02 Last Admin: 04/02/19 17:03 Dose: 9.5 ml Documented by: [id number] Ioversol (Optiray 320 125ml) 120 ml IV ONCE PRN PRN Reason: Interaction Checking Stop: 04/06/19 16:17 Last Admin: 04/02/19 16:19 Dose: 120 ml Documented by: [id number] Discontinued Medications Acetaminophen (Tylenol) 650 mg PO NOW STA Stop: 04/02/19 15:04 Last Admin: 04/02/19 15:20 Dose: 650 mg Documented by: [id number] Levetiracetam 1,000 mg/ (Dextrose) 110 mls @ 440 mls/hr IV TODAY@1531 [facility] Stop: 04/02/19 17:00 Last Infusion: 04/02/19 16:07 Dose: 0 mls/hr Documented by: [id number] Admin: 04/02/19 15:52 Dose: 440 mls/hr Documented by: [id number] Medical Decision Making Laboratory Data Result diagrams: 04/02/19 12:35 04/02/19 12:35 Lab Results 04/02/19 04/02/19 04/02/19 Range/Units 12:35 12:35 12:35 WBC 9.95 (4.8-10.8) K/uL RBC 4.54 (4.2-5.4) M/uL Hgb 14.4 (12.0-16.0) g/dL Hct 39.8 (37-47) % MCV 87.7 (80-100) fL MCH 31.7 (25-34) pg MCHC 36.2 H (32-36) g/dL RDW Std Deviation 40.5 (36.4-46.3) fL RDW Coeff of Radhames 12.6 (11.5-14.5) % Plt Count 164 (130-400) K/uL MPV 9.9 (7.4-10.4) fL Immature Gran % (Auto) 0.3 % Neut % (Auto) 77.3 % Lymph % (Auto) 15.6 % [place] % (Auto) 6.0 % Eos % (Auto) 0.6 % Baso % (Auto) 0.2 % Immature Gran # (Auto) 0.03 H (0.00-0.02) K/uL Neut # (Auto) 7.69 H (1.4-6.5) K/uL Lymph # (Auto) 1.55 (1.2-3.4) K/uL [place] # (Auto) 0.60 H (0.11-0.59) K/uL Eos # (Auto) 0.06 (0-0.5) K/uL Baso # (Auto) 0.02 (0-0.2) K/uL Sodium 137 (136-145) mmol/L Potassium 3.6 (3.5-5.1) mmol/L Chloride 106 (98-107) mmol/L Carbon Dioxide 23 (21-32) mmol/L Anion Gap 8.0 (3-11) BUN 11 (7-18) mg/dl Creatinine 0.76 (0.6-1.2) mg/dl Est Cr Clr Drug Dosing 127.3 ml/min Est GFR ( Amer) 124.6 Est GFR (Non-Af Amer) 107.5 BUN/Creatinine Ratio 14.2 (10-20) Glucose 176 H (70-99) mg/dl Calcium 8.4 L (8.5-10.1) mg/dl Magnesium 2.1 (1.8-2.4) mg/dl Total Bilirubin 0.6 (0.2-1) mg/dl AST 34 (15-37) U/L ALT 60 (12-78) U/L Alkaline Phosphatase 91 (45-117) U/L Troponin I < 0.015 (0-0.045) ng/ml Total Protein 7.1 (6.4-8.2) gm/dl Albumin 3.8 (3.4-5.0) gm/dl Globulin 3.3 (2.5-4.0) gm/dl Albumin/Globulin Ratio 1.2 (0.9-2) TSH 0.729 (0.300-4.500) uIu/ml Specimen Hemolysis Urine Color Urine Appearance (Clear) Urine pH (4.5-7.5) Ur Specific [place] (1.000-1.030) Urine Protein (Negative) Urine Glucose (UA) (Negative) Urine Ketones (Negative) Urine Blood (Negative) Urine Nitrite (Negative) Urine Bilirubin (Negative) Urine Urobilinogen (Negative) Ur Leukocyte Esterase (Negative) Urine WBC (Auto) (0-5) /hpf Urine RBC (Auto) (0-4) /hpf U Hyaline Cast (Auto) (0-5) /lpf U Epithel Cells (Auto) (0-5) /lpf Urine Bacteria (Auto) (Negative) Ur Renal Epithelial Cell (0-5) /lpf Amorphous Sediment (None Prsent) Granular Casts (0) /lpf POC Ur Test (NEG) Urine Opiates Screen (Neg) Ur Methadone, Qual (Neg) Urine Barbiturates (Neg) Ur Phencyclidine (PCP) (Neg) U Amphetamin/Meth Scrn (Neg) MDMA (Ecstasy) Screen (Neg) U Benzodiazepines Scrn (Neg) Ur Cocaine Metabolite (Neg) U Marijuana (THC) Screen (Neg) Lyme Disease IgG Ab Negative (Negative) Lyme Disease IgM Ab Negative (Negative) 07/08/19 07/08/19 07/08/19 Range/Units 12:35 13:00 13:00 WBC (4.8-10.8) K/uL RBC (4.2-5.4) M/uL Hgb (12.0-16.0) g/dL Hct (37-47) % MCV (80-100) fL MCH (25-34) pg MCHC (32-36) g/dL RDW Std Deviation (36.4-46.3) fL RDW Coeff of Radhames (11.5-14.5) % Plt Count (130-400) K/uL MPV (7.4-10.4) fL Immature Gran % (Auto) % Neut % (Auto) % Lymph % (Auto) % [place] % (Auto) % Eos % (Auto) % Baso % (Auto) % Immature Gran # (Auto) (0.00-0.02) K/uL Neut # (Auto) (1.4-6.5) K/uL Lymph # (Auto) (1.2-3.4) K/uL [place] # (Auto) (0.11-0.59) K/uL Eos # (Auto) (0-0.5) K/uL Baso # (Auto) (0-0.2) K/uL Sodium (136-145) mmol/L Potassium (3.5-5.1) mmol/L Chloride (98-107) mmol/L Carbon Dioxide (21-32) mmol/L Anion Gap (3-11) BUN (7-18) mg/dl Creatinine (0.6-1.2) mg/dl Est Cr Clr Drug Dosing ml/min Est GFR ( Amer) Est GFR (Non-Af Amer) BUN/Creatinine Ratio (10-20) Glucose (70-99) mg/dl Calcium (8.5-10.1) mg/dl Magnesium (1.8-2.4) mg/dl Total Bilirubin (0.2-1) mg/dl AST (15-37) U/L ALT (12-78) U/L Alkaline Phosphatase (45-117) U/L Troponin I (0-0.045) ng/ml Total Protein (6.4-8.2) gm/dl Albumin (3.4-5.0) gm/dl Globulin (2.5-4.0) gm/dl Albumin/Globulin Ratio (0.9-2) TSH Cancelled (0.300-4.500) uIu/ml Specimen Hemolysis Urine Color Dark Yellow Urine Appearance Turbid A (Clear) Urine pH 5.0 (4.5-7.5) Ur Specific [place] 1.026 (1.000-1.030) Urine Protein 1+ H (Negative) Urine Glucose (UA) 1+ H (Negative) Urine Ketones Negative (Negative) Urine Blood Negative (Negative) Urine Nitrite Negative (Negative) Urine Bilirubin Negative (Negative) Urine Urobilinogen Negative (Negative) Ur Leukocyte Esterase Negative (Negative) Urine WBC (Auto) 5-10 H (0-5) /hpf Urine RBC (Auto) 0-4 (0-4) /hpf U Hyaline Cast (Auto) 10-30 H (0-5) /lpf U Epithel Cells (Auto) >30 H (0-5) /lpf Urine Bacteria (Auto) 1+ H (Negative) Ur Renal Epithelial Cell 0-5 (0-5) /lpf Amorphous Sediment Present A (None Prsent) Granular Casts 5-10 H (0) /lpf POC Ur Test NEG (NEG) Urine Opiates Screen (Neg) Ur Methadone, Qual (Neg) Urine Barbiturates (Neg) Ur Phencyclidine (PCP) (Neg) U Amphetamin/Meth Scrn (Neg) MDMA (Ecstasy) Screen (Neg) U Benzodiazepines Scrn (Neg) Ur Cocaine Metabolite (Neg) U Marijuana (THC) Screen (Neg) Lyme Disease IgG Ab (Negative) Lyme Disease IgM Ab (Negative) 04/02/19 Range/Units 13:00 WBC (4.8-10.8) K/uL RBC (4.2-5.4) M/uL Hgb (12.0-16.0) g/dL Hct (37-47) % MCV (80-100) fL MCH (25-34) pg MCHC (32-36) g/dL RDW Std Deviation (36.4-46.3) fL RDW Coeff of Radhames (11.5-14.5) % Plt Count (130-400) K/uL MPV (7.4-10.4) fL Immature Gran % (Auto) % Neut % (Auto) % Lymph % (Auto) % [place] % (Auto) % Eos % (Auto) % Baso % (Auto) % Immature Gran # (Auto) (0.00-0.02) K/uL Neut # (Auto) (1.4-6.5) K/uL Lymph # (Auto) (1.2-3.4) K/uL [place] # (Auto) (0.11-0.59) K/uL Eos # (Auto) (0-0.5) K/uL Baso # (Auto) (0-0.2) K/uL Sodium (136-145) mmol/L Potassium (3.5-5.1) mmol/L Chloride (98-107) mmol/L Carbon Dioxide (21-32) mmol/L Anion Gap (3-11) BUN (7-18) mg/dl Creatinine (0.6-1.2) mg/dl Est Cr Clr Drug Dosing ml/min Est GFR ( Amer) Est GFR (Non-Af Amer) BUN/Creatinine Ratio (10-20) Glucose (70-99) mg/dl Calcium (8.5-10.1) mg/dl Magnesium (1.8-2.4) mg/dl Total Bilirubin (0.2-1) mg/dl AST (15-37) U/L ALT (12-78) U/L Alkaline Phosphatase (45-117) U/L Troponin I (0-0.045) ng/ml Total Protein (6.4-8.2) gm/dl Albumin (3.4-5.0) gm/dl Globulin (2.5-4.0) gm/dl Albumin/Globulin Ratio (0.9-2) TSH (0.300-4.500) uIu/ml Specimen Hemolysis Urine Color Urine Appearance (Clear) Urine pH (4.5-7.5) Ur Specific [place] (1.000-1.030) Urine Protein (Negative) Urine Glucose (UA) (Negative) Urine Ketones (Negative) Urine Blood (Negative) Urine Nitrite (Negative) Urine Bilirubin (Negative) Urine Urobilinogen (Negative) Ur Leukocyte Esterase (Negative) Urine WBC (Auto) (0-5) /hpf Urine RBC (Auto) (0-4) /hpf U Hyaline Cast (Auto) (0-5) /lpf U Epithel Cells (Auto) (0-5) /lpf Urine Bacteria (Auto) (Negative) Ur Renal Epithelial Cell (0-5) /lpf Amorphous Sediment (None Prsent) Granular Casts (0) /lpf POC Ur Test (NEG) Urine Opiates Screen Neg (Neg) Ur Methadone, Qual Neg (Neg) Urine Barbiturates Neg (Neg) Ur Phencyclidine (PCP) Neg (Neg) U Amphetamin/Meth Scrn Neg (Neg) MDMA (Ecstasy) Screen Neg (Neg) U Benzodiazepines Scrn Neg (Neg) Ur Cocaine Metabolite Neg (Neg) U Marijuana (THC) Screen Neg (Neg) Lyme Disease IgG Ab (Negative) Lyme Disease IgM Ab (Negative) Imaging Data Radiologist's Impression: CT head/brain wo con CLINICAL HISTORY: 28 years-old Female with 20 minutes of L sided leg and arm weakness.. Acute left leg and left arm weakness TECHNIQUE: Multiple axial CT images of the head were obtained without contrast. A dose lowering technique was utilized adhering to the principles of ALARA. CT DOSE: 537.48 mGy.cm COMPARISON: None. FINDINGS: No acute intracranial hemorrhage, midline shift, intracranial mass, hydrocepha talat, territorial ischemia or abnormal extra-axial collection. The calvarium is intact. The paranasal sinuses, mastoid air cells, and middle ear cavities are clear. IMPRESSION: No acute intracranial abnormality. The above report was generated using voice recognition software. It may contain grammatical, syntax or spelling errors. Electronically signed by: Adin Tierney M.D. 04/02/2019 2:06 PM HEAD & NECK CTA HISTORY: 10-20 minutes of L arm and leg weakness/numb. TECHNIQUE: Multiaxial CT images of the head were performed following the intravenous administration of contrast to evaluate the major cerebral vessels. Multiaxial CT images of the neck were also performed following the intravenous administration of contrast to evaluate the major cervical vessels. Maximum intensity projection images were also obtained. A dose lowering technique was utilized adhering to the principles of ALARA. COMPARISON: Head CT 04/02/2019. FINDINGS: There is no mass, hematoma, midline shift, or acute infarct. Visualized intracranial internal carotid arteries, distal vertebral arteries, and basilar artery are widely patent. There is no significant stenosis, occlusion, or aneurysm seen within the bilateral ACAs, MCAs, or engineering manager. The major dural venous sinuses appear patent. The aortic arch and proximal great vessels are widely patent. There is no significant stenosis, occlusion, or dissection identified within the bilateral common carotid, internal carotid, or vertebral arteries. Densely calcified nodule within the left thyroid lobe measuring 8 mm. Therefore, this is likely benign. Medial deviation of the internal carotid arteries is noted. No fractures within the cervical spine. IMPRESSION: 1. No significant stenosis, occlusion, or aneurysm within the [place]. 2. No significant stenosis, occlusion, or dissection identified within the carotid or vertebral arteries. Electronically signed by: Wesley Houston M.D. 04/02/2019 4:31 PM Brain MRI WITH AND WITHOUT CONTRAST HISTORY: 10-20 minutes of L arm and leg weakness/numb. TECHNIQUE: Multiplanar multisequence MRI of the brain was performed both before and after the intravenous administration of contrast. COMPARISON STUDY: None. FINDINGS: There are no areas of restricted diffusion to suggest acute infarction. The midline structures are intact. The paranasal sinuses are clear. The mastoid air cells are clear. The ventricles and sulci are within normal limits for age. There is no mass, hematoma, midline shift. The major vascular flow-voids at the skull base are well maintained. Postcontrast sequences show no areas of abnormal enhancement. IMPRESSION: No acute intracranial abnormality. Electronically signed by: Wesley Houston M.D. 04/02/2019 5:15 PM [facility] Narrative Patient was seen and evaluated as above in room B 10. Review was performed of nursing notes and vital signs. After obtaining a thorough history and physical examination the above work up was performed. She presents to us today status post an episode lasting about 10 to 20 minutes of left arm and leg numbness. She is nontoxic on exam and has no deficits. Her vital signs are stable. A CT scan was obtained of the head and was negative. An EKG was performed and reveals normal sinus rhythm without any evidence of CT. Labs were drawn. No leukocytosis or concerning anemia. No emergent metabolic abnormality other than hyperglycemia at 176 with calcium at 84. Urinalysis reveals what appears to be a contaminated sample. UPT negative. Urine drug screen negative. Lyme screen negative. I discussed the findings with the on-call neurologist, Dr. Lomeli. She recommended head and neck CTA as well as MRI of the brain with and without contrast. These were ordered. The patient had developed a headache and requested something for the pain. Tylenol was ordered. As the nurse was administering this the patient began with garbled speech, drooling from the right side of the mouth than seizure. This lasted about 20 minutes. She was then postictal for quite some time. Seizure precautions were initiated. Keppra was ordered. No medication was needed to break the seizure. I then called the neurologist back and discussed this. We then obtained the imaging and I informed her upon the results. The image was negative. She recommended adding hypercoagulable work-up, 81 mg aspirin daily and continuing the vascular work- up. I then called the hospitalist to admit the patient for further evaluation and management. I answered all the patient's questions. She was also given IV Toradol, fluids and Zofran for her headache. Patient has no history of seizure. Case was discussed with the attending physician. GCS: 15 In the evaluation and treatment of this patient, the following differential diagnoses were considered: Concussion, Contrecoup Injury, Brain Tumor, Depression, Encephalitis, Hypothyroidism, Elijah's paralysis, meningitis, venous sinus thrombosis, seizure, CVA, TIA, Migraine, Cluster Headache, Intracranial Abnormality, Intracranial Hemorrhage, Subdural Hematoma, Subarachnoid Hemorrhage, Hydrocephalus. Impression & Plan Seizure, Paralysis of left upper extremity, Paralysis of left lower extremity Discharge Plan Visit Data Chief Complaint: Neuro Symptoms/Deficit Stated Complaint: LEFT SIDE WENT "", FALL,LEFT ARM WOULDNT MOVE ED Provider: Curtis Burden ED Midlevel Provider: Abisai Barber Discharge Problem: Seizure, Paralysis of left upper extremity, Paralysis of left lower extremity Patient Disposition: Admitted As Inpatient Condition: Good Forms Stand Alone Forms: My [facility], Important Visit Information Prescriptions Prescriptions: No Action ibuprofen 800 mg Tablet 800 mg PO TID PRN (Reason: Pain) RF: 0 ondansetron 4 mg tablet,disintegrating 4 mg PO Q8H PRN (Reason: nausea and vomiting) Qty: 10 RF: 0 metformin 500 mg Tablet 500 mg PO DAILY RF: 0 sertraline [Zoloft] 50 mg Tablet 50 mg PO DAILY RF: 0 Referrals Referrals: Chelsea Soliz DO [Primary Care Provider] -
[2019-04-02 12:49] LABS: Basophils # (auto) 0.02 K/uL (0-0.2); Basophils % (auto) 0.2 %; Eosinophils # (auto) 0.06 K/uL (0-0.5); Eosinophils % (auto) 0.6 %; Hematocrit (blood only) 39.8 % (37-47); Hemoglobin 14.4 g/dL (12.0-16.0); Immature Granulocytes # (auto) 0.03 K/uL (0.00-0.02); Immature Granulocytes % (auto) 0.3 %; Lymphocytes # (auto) 1.55 K/uL (1.2-3.4); Lymphocytes % (auto) 15.6 %; Mean Corpuscular Hgb Conc 36.2 g/dL (32-36); Mean Corpuscular Volume 87.7 fL (80-100); Mean Platelet Volume 9.9 fL (7.4-10.4); Neutrophils # (auto) 7.69 K/uL (1.4-6.5); Neutrophils % (auto) 77.3 %; Platelet Count 164 K/uL (130-400); RDW Coefficient of Variation 12.6 % (11.5-14.5); RDW Standard Deviation 40.5 fL (36.4-46.3); Red Blood Count 4.54 M/uL (4.2-5.4); White Blood Count 9.95 K/uL (4.8-10.8)
[2019-04-02 13:11] LABS: Alanine Aminotransferase 60 U/L (12-78); Albumin Level 3.8 gm/dl (3.4-5.0); Aspartate Aminotransferase 34 U/L (15-37); BUN Creatinine Ratio 14.2 (10-20); Blood Urea Nitrogen 11 mg/dl (7-18); Calcium 8.4 mg/dl (8.5-10.1); Carbon Dioxide 23 mmol/L (21-32); Chloride 106 mmol/L (98-107); Creatinine Clr Calc Pharmacy 127.3 ml/min; Est GFR (African American) 124.6; Est GFR (Non-African American) 107.5; Glucose 176 mg/dl (70-99); Magnesium 2.1 mg/dl (1.8-2.4); Potassium 3.6 mmol/L (3.5-5.1); Sodium 137 mmol/L (136-145)
[2019-04-02 13:22] LABS: Albumin Globulin Ratio 1.2 (0.9-2); Alkaline Phosphatase 91 U/L (45-117); Bilirubin,Total 0.6 mg/dl (0.2-1); Globulin 3.3 gm/dl (2.5-4.0); Total Protein 7.1 gm/dl (6.4-8.2); Troponin I < 0.015 ng/ml (0-0.045)
[2019-04-02 13:27] LABS: Appearance Urine Turbid (Clear); Bacteria Urine Automated 1+ (Negative); Bilirubin Urine Negative (Negative); Blood Urine Negative (Negative); Color Urine Dark Yellow; Epithelial Cell Urine Auto >30 /lpf (0-5); Glucose Urine UA 1+ (Negative); Ketones Urine Negative (Negative); Leukocyte Esterase Urine Negative (Negative); Nitrite Urine Negative (Negative); Protein Urine 1+ (Negative); RBC Urine Automated 0-4 /hpf (0-4); Specific Gravity Urine 1.026 (1.000-1.030); Urobilinogen Urine Negative (Negative)
[2019-04-02 13:46] LABS: Lyme Ab IgG w/WB Rflx Negative (Negative); Lyme Ab IgM w/WB Rflx Negative (Negative)
--- NOTE | 2019-04-02 14:07 | CT Scan Report ---
CT head/brain wo con CLINICAL HISTORY: 28 years-old Female with 20 minutes of L sided leg and arm weakness.. Acute left l eg and left arm weakness TECHNIQUE: Multiple axial CT images of the head were obtained without contrast. A dose lowering tech nique was utilized adhering to the principles of ALARA. CT DOSE: 537.48 mGy.cm COMPARISON: None. FINDINGS: No acute intracranial hemorrhage, midline shift, intracranial mass, hydrocephalus, territorial ischem ia or abnormal extra-axial collection. The calvarium is intact. The paranasal sinuses, mastoid air cells, and middle ear cavities are clear . IMPRESSION: No acute intracranial abnormality. The above report was generated using voice recognition software. It may contain grammatical, syntax o r spelling errors. Electronically signed by: Adin Tierney M.D. 04/02/2019 2:06 PM
[2019-04-02 14:42] LABS: Amorphous Sediment Urine Present (None Prsent); Renal Epithelial Cells Urine 0-5 /lpf (0-5)
[2019-04-02] MEDS ORDERED: ACETAMINOPHEN 325 MG TAB PO STA (15:03)
[2019-04-02] MEDS ORDERED: OPTIRAY 320 125ml IV PRN (16:18)
[2019-04-02 16:19] LABS: Amphetamines+Metham, Urine Neg (Neg); Barbiturates, Urine Neg (Neg); Benzodiazepine, Urine Neg (Neg); Cocaine, Urine Neg (Neg); MDMA (Ecstacy), Urine Neg (Neg); Methadone, Urine Neg (Neg); Opiate, Urine Neg (Neg); Phencyclidine, Urine Neg (Neg)
--- NOTE | 2019-04-02 16:33 | CT Scan Report ---
HEAD & NECK CTA HISTORY: 10-20 minutes of L arm and leg weakness/numb. TECHNIQUE: Multiaxial CT images of the head were performed following the intravenous administration o f contrast to evaluate the major cerebral vessels. Multiaxial CT images of the neck were also perform ed following the intravenous administration of contrast to evaluate the major cervical vessels. Maxim um intensity projection images were also obtained. A dose lowering technique was utilized adhering to the principles of ALARA. COMPARISON: Head CT 04/02/2019. FINDINGS: There is no mass, hematoma, midline shift, or acute infarct. Visualized intracranial internal carotid arteries, distal vertebral arteries, and basilar artery are widely patent. There is no significant s tenosis, occlusion, or aneurysm seen within the bilateral ACAs, MCAs, or template maker. The major dural venous sinuses appear patent. The aortic arch and proximal great vessels are widely patent. There is no significant stenosis, occ lusion, or dissection identified within the bilateral common carotid, internal carotid, or vertebral arteries. Densely calcified nodule within the left thyroid lobe measuring 8 mm. Therefore, this is li hope benign. Medial deviation of the internal carotid arteries is noted. No fractures within the cerv ical spine. IMPRESSION: 1. No significant stenosis, occlusion, or aneurysm within the [place]. 2. No significant stenosis, occlusion, or dissection identified within the carotid or vertebral arter ies. Electronically signed by: Wesley Houston M.D. 04/02/2019 4:31 PM
--- NOTE | 2019-04-02 16:33 | CT Scan Report ---
HEAD & NECK CTA HISTORY: 10-20 minutes of L arm and leg weakness/numb. TECHNIQUE: Multiaxial CT images of the head were performed following the intravenous administration o f contrast to evaluate the major cerebral vessels. Multiaxial CT images of the neck were also perform ed following the intravenous administration of contrast to evaluate the major cervical vessels. Maxim um intensity projection images were also obtained. A dose lowering technique was utilized adhering to the principles of ALARA. COMPARISON: Head CT 04/02/2019. FINDINGS: There is no mass, hematoma, midline shift, or acute infarct. Visualized intracranial internal carotid arteries, distal vertebral arteries, and basilar artery are widely patent. There is no significant s tenosis, occlusion, or aneurysm seen within the bilateral ACAs, MCAs, or associate theatre professor. The major dural venous sinuses appear patent. The aortic arch and proximal great vessels are widely patent. There is no significant stenosis, occ lusion, or dissection identified within the bilateral common carotid, internal carotid, or vertebral arteries. Densely calcified nodule within the left thyroid lobe measuring 8 mm. Therefore, this is li hope benign. Medial deviation of the internal carotid arteries is noted. No fractures within the cerv ical spine. IMPRESSION: 1. No significant stenosis, occlusion, or aneurysm within the [place]. 2. No significant stenosis, occlusion, or dissection identified within the carotid or vertebral arter ies. Electronically signed by: Wesley Houston M.D. 04/02/2019 4:31 PM
[2019-04-02] MEDS ORDERED: GADOBUTROL 65ML VIAL IV PRN (17:03)
--- NOTE | 2019-04-02 17:17 | Magnetic Resonance Report ---
Brain MRI WITH AND WITHOUT CONTRAST HISTORY: 10-20 minutes of L arm and leg weakness/numb. TECHNIQUE: Multiplanar multisequence MRI of the brain was performed both before and after the intrave nous administration of contrast. COMPARISON STUDY: None. FINDINGS: There are no areas of restricted diffusion to suggest acute infarction. The midline structu res are intact. The paranasal sinuses are clear. The mastoid air cells are clear. The ventricles and sulci are within normal limits for age. There is no mass, hematoma, midline shift. The major vascular flow-voids at the skull base are well maintained. Postcontrast sequences show no areas of abnormal e nhancement. IMPRESSION: No acute intracranial abnormality. Electronically signed by: Wesley Houston M.D. 04/02/2019 5:15 PM
[2019-04-02] MEDS ORDERED: KETOROLAC TROMETHAMINE 15 MG/ML VIAL IV ONE (17:22)
[2019-04-02] MEDS ORDERED: SODIUM CHLORIDE 0.9% 1000ML 1,000 ML IV SCH (17:30)
--- NOTE | 2019-04-02 17:40 | History & Physical Report ---
Date of Service April 02, 2019 Assessment & Plan (1) Seizure: Seizure Witnessed Seizure Episode while in ED Presents with strokelike symptoms earlier today which currently resolved H/O migraine No known seizure-like activity previously On Zoloft for adjustment disorder Brain Imaging studies negative for any acute process Had loading dose of Keppra while in ED We will continue Keppra 500 mg twice daily Ativan as needed for seizures Will hold Zoloft for now secondary to seizures Neurology consulted Seizure, aspiration and fall precautions Stroke like symptoms Presented with left-sided weakness, numbness resulting in fall --MRI Brain:No acute intracranial abnormality. --Head CTA:No significant stenosis, occlusion, or aneurysm within the [place]. No significant stenosis, occlusion, or dissection identified within the carotid or vertebral arteries. --Neck CTA:No significant stenosis, occlusion, or aneurysm within the [place]. No significant stenosis, occlusion, or dissection identified within the carotid or vertebral arteries. --Negative drug screen, Lyme screen --Started on 81 mg of aspirin daily --CVA work-up including ECHO, lipid panel, hypercoagulable work-up as per neurology --Neurology consulted --Neuro checks Elevated TSH: Recheck TSH, Free T4 in AM No known history of thyroid disease Abnormal UA: Denies any dysuria, increased urinary frequency, fever chills, abdominal pain Urine culture pending No plan to start antibiotics for now DM Type II: Will hold oral diabetic meds Last A1c:6.4 on 10/27/18 ISS, basal Insulin, Accu checks, Diabetic diet Update A1C Irritable bowel syndrome Ongoing diarrhea Lomotil PRN Denies abdominal pain Tobacco use disorder 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 Refuses Nicotine patch Adjustment disorder Hold Zoloft due to seizure monitor DVT Px: SCDs for now Code Status: Full Code Disposition: Expected discharge home in stable PT/OT prior to discharge History of Present Illness Chief Complaint: Stroke like symptoms, Seizure Primary Care Provider: Chelsea Soliz DO Patient is a 28-year-old female with history of diabetes mellitus, irritable bowel syndrome, GERD, tobacco use disorder, adjustment disorder, obesity and other problems presents with history of sudden onset of left-sided weakness, numbness lasting for about 10 to 20 minutes while using bathroom today. She admits to having fell in the bathroom bruising her left hand. She had difficulty getting up from the floor secondary to weakness which later resolved. She denies any loss of consciousness, facial deformity, bowel or bladder incontinence, speech problems at the time. On recommendations from her primary care physician patient presents to ED for further evaluation. Patient had a witnessed generalized seizure while in ED. As per the staff, patient initially had hiccups and had a 25-30 seconds--episode of generalized seizure followed by postictal state lasting for about 30 minutes while in ED. Patient was also noted to have drooling from the left side of her face, had a tongue bite. She is been complaining of frontal headache after the seizure which is slightly improved with Tylenol. Currently weakness resolved. She admits to having history of migraine and using ibuprofen as needed and previously followed with Dr. Yadav. Reports having headaches about once a week which improves with pain meds. She states having loose watery diarrhea since 1 week duration and has associated nausea but no vomiting. Denies any history of chest pain, SOB, palpitations, dizziness, pedal edema, cough, fever, chills, head trauma, change in vision, slurred speech, bowel/bladder incontinence, blood in stools, recent antibiotic use, dysuria, recent change in medications. Allergies Allergy/AdvReac Type Severity Reaction Status Date / Time Penicillins Allergy Severe RASH Verified 04/02/19 13:15 tramadol Allergy Mild Chest Pain Unverified 04/02/19 13:15 Home Medications Home Medications Medication Instructions Recorded Confirmed Type ibuprofen 800 mg PO TID PRN 09/22/18 04/02/19 History ondansetron 4 mg PO Q8H PRN #10 tab 09/22/18 04/02/19 Rx diphenoxylate-atropine [Lomotil] 1 tab PO TID PRN 04/02/19 04/02/19 History lisinopril 2.5 mg PO DAILY 04/02/19 04/02/19 History loratadine [Claritin] 10 mg PO DAILY 04/02/19 04/02/19 History metformin 500 mg PO DAILY 04/02/19 04/02/19 History sertraline [Zoloft] 50 mg PO DAILY 04/02/19 04/02/19 History simvastatin [Zocor] 20 mg PO HS 04/02/19 04/02/19 History Past Med/Surg History Medical History Tobacco use disorder Cigarette nicotine dependence, uncomplicated No acute medical problems Surgical History History of cholecystectomy History of arthroscopy of shoulder Family History Mother Diabetes Grandmother (Maternal) Epilepsy Diabetes Social History Preferred Language: Vietnamese Feels Safe at Home: Yes Smoking Status: Current every day smoker Hx Alcohol Use: Yes (Socially ) Review of Systems Review of Systems: All systems reviewed & are unremarkable except as noted in HPI & below Physical Exam Physical Exam: Physical Exam: Vitals signs as noted above General Appearance:Obese, no apparent distress Head: normocephalic, Atraumatic, +Tongue bite Eyes: normal inspection, EOMI Neck: supple, Trachea midline Respiratory/Chest: Normal breath sounds, CTA Cardiovascular: S1, S2, No murmur Abdomen/GI:Soft, Non tender, Bowel sounds present Extremities/Musculoskelatal:normal inspection, no edema, Abrasion of left hand Neurologic/Psych:AAOX3, grossly no focal neurological deficits Skin: normal color, warm Results & Data Vital Signs (Past 12 Hours) Vital Signs Temp Pulse Pulse Resp BP BP Pulse Ox 04/02/19 16:00 93 H 31 H 134/92 93 04/02/19 15:33 102 H 25 H 158/72 H 93 04/02/19 15:00 75 16 119/76 97 04/02/19 14:30 78 20 134/87 98 04/02/19 14:18 71 76 22 115/82 115/82 95 04/02/19 13:30 82 18 136/86 95 04/02/19 13:01 95 04/02/19 12:56 81 19 138/98 93 04/02/19 12:05 37 C 99 H 20 141/98 H 96 Laboratory Results Short CBC 04/02/19 Range/Units 12:35 WBC 9.95 (4.8-10.8) K/uL Hgb 14.4 (12.0-16.0) g/dL Hct 39.8 (37-47) % Plt Count 164 (130-400) K/uL BMP 04/02/19 12:35 Sodium 137 Potassium 3.6 Chloride 106 Carbon Dioxide 23 BUN 11 Creatinine 0.76 Glucose 176 H Calcium 8.4 L Cardiac Enzymes 04/02/19 Range/Units 12:35 Troponin I < 0.015 (0-0.045) ng/ml Liver Function 04/02/19 Range/Units 12:35 Total Bilirubin 0.6 (0.2-1) mg/dl AST 34 (15-37) U/L ALT 60 (12-78) U/L Alkaline Phosphatase 91 (45-117) U/L Albumin 3.8 (3.4-5.0) gm/dl Urine 04/02/19 Range/Units 13:00 Urine Color Dark Yellow Urine Appearance Turbid A (Clear) Urine pH 5.0 (4.5-7.5) Ur Specific [place] 1.026 (1.000-1.030) Urine Protein 1+ H (Negative) Urine Glucose (UA) 1+ H (Negative) Diagnostic Findings MRI Brain: No acute intracranial abnormality. ECG Additional Comments: EKG: Normal sinus rhythm, nonspecific T wave abnormality, QTC 430.
[2019-04-02] MEDS ORDERED: ONDANSETRON INJ 2 MG/ML 2 ML VIAL IV STA (17:53)
[2019-04-02] MEDS ORDERED: GLUCOSE 40% GEL 15 GM TUBE PO PRN (20:29)
[2019-04-02] MEDS ORDERED: GLUCOSE 10 TABS/TUBE PO PRN (20:29)
[2019-04-02] MEDS ORDERED: LORazepam 1 MG/2 ML VIAL IV PRN (20:29)
[2019-04-02] MEDS ORDERED: ONDANSETRON INJ 2 MG/ML 2 ML VIAL IV PRN (20:29)
[2019-04-02] MEDS ORDERED: GLUCAGON FOR INJ 1 MG VIAL SQ PRN (20:29)
[2019-04-02] MEDS ORDERED: ACETAMINOPHEN 325 MG TAB PO PRN (20:29)
[2019-04-02] MEDS ORDERED: DIPHENOXYLATE/ATROPINE 2.5/0.025MG TAB PO PRN (20:29)
[2019-04-02] MEDS ORDERED: DEXTROSE 50% 50 ML SYRINGE IV PRN (20:29)
[2019-04-02] MEDS ORDERED: CARBOHYDRATES FOR HYPOGLYCEMIA PO PRN (20:29)
[2019-04-02] MEDS ORDERED: SIMVASTATIN 20 MG TAB PO SCH (21:00)
[2019-04-02] MEDS ORDERED: NSS + 20MEQ KCL 20 MEQ/1,000 ML BAG IV ONE (21:00)
[2019-04-02] MEDS ORDERED: IBUPROFEN 800 MG TAB PO STA (21:31)
[2019-04-02] MEDS: levETIRAcetam 500 MG TAB PO SCH (21:37)
[2019-04-02] MEDS: INSULIN ASPART 100 UNITS/ML 3 ML PEN SC SCH (21:38)
[2019-04-02] MEDS: INSULIN GLARGINE SOLOSTAR 100 UNITS/ML 3 ML PEN SC SCH (21:41)
[2019-04-03 07:38] LABS: Estimated Average Glucose 154 mg/dl
[2019-04-03] MEDS: levETIRAcetam 500 MG TAB PO SCH (07:54)
[2019-04-03] MEDS: INSULIN ASPART 100 UNITS/ML 3 ML PEN SC SCH ×3 (07:55→17:08)
[2019-04-03] MEDS: INSULIN GLARGINE SOLOSTAR 100 UNITS/ML 3 ML PEN SC SCH (07:56)
[2019-04-03] MEDS ORDERED: ASPIRIN 81 MG ECTAB PO SCH (09:00)
[2019-04-03] MEDS ORDERED: LISINOPRIL 2.5 MG TAB PO SCH (09:00)
[2019-04-03] MEDS ORDERED: LORATADINE 10 MG TAB PO SCH (09:00)
--- NOTE | 2019-04-03 12:33 | Hospitalist Progress Note ---
Date of Service April 03, 2019 Assessment & Plan (1) Seizure: Patient presented with strokelike symptomssudden onset left-sided weakness, numbness lasting for 10 to 20 minutes while using bathroom. Had a fall with difficulty getting up from floor secondary to weakness which later resolved. No loss of consciousness associated with that. Patient was referred to ED by her primary care physician recommendations. Patient had a witnessed generalized seizure while in ED with no prior history of seizures. Seizure Witnessed Generalized Seizure Episode while in ED. No prior hx of seizures. -S/P Loading dose of Keppra while in ED -Continue with keppra 500 mg PO BID -Ativan PRN -Work up- MRI brain- neg for acute abnormalities, CTA head/neck- No significant stenosis, Drug screen- normal, Lyme screen - Neg, BMP- normal, Glucose- elevated with HBA1C 7.0, Lipid panel - 123, Echo - pending, Hypercoagulable work up pending, TSH repeat- normal -Neurology consulted -Seizure precautions Abnormal UA: Denies any dysuria, increased urinary frequency, fever chills, abdominal pain Urine culture - no significant growth DM Type II: Will hold oral diabetic meds Last A1c: 7.0 -ISS, basal Insulin, Accu checks, Diabetic diet Irritable bowel syndrome -Ongoing diarrhea -Lomotil PRN Tobacco use disorder -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 Subjective Patient denies any complaints. No prior episodes of seizures. No weakness, sensory loss, nausea, vomiting, headache, fever, chills Family by bedside Physical Exam Physical Exam: GENERAL- AAOX3, No acute distress NECK- Supple, no JVD LUNGS- Air entry bilaterally equal. No rales, rhonchi, crackles, wheezes heard. HEART- Regular rate and rhythm. No murmurs EXTREMITIES- Good peripheral pulses, no edema NEUROMUSCULAR- AAOX3, cranial nerves intact, power5/5 all extremities, sen sorynormal Results & Data Vital Signs (Past 12 Hours) Vital Signs Temp Pulse Resp BP BP Pulse Ox 04/03/19 11:24 36.8 C 71 20 139/86 97 04/03/19 06:58 37.1 C 73 16 122/80 94 04/03/19 02:40 36.9 C 72 18 94/61 L 96
--- NOTE | 2019-04-03 13:56 | Neurology Consultation ---
Date of Consultation April 03, 2019 Assessment & Plan (1) Paralysis of left upper extremity: 1. MRI brain- no acute findings 2. CTA head neck - no acute findings 3. EEG- preliminary no seizure focus 4. TTE NO ASD EF 55-60% 5. optimize HTN, HLD, DM LDL<70 6. no previous seizure history - great grandmother has epilepsy 7. smoking cessation needed 8. hypercoag labs ordered no history of DVT 9. continue aspirin 81 mg 10. ok to restart Zoloft home dosing 11. discharge on Keppra 500 mg BID for now 12. no driving for 6 months from last seizure date, no heights, no bathing or swimming alone 13. ok from neurology standpoint to discharge if medically stable (2) Paralysis of left lower extremity: same as above (3) Seizure: same as above Supervising Physician Co-Signing Physician Notes I have seen and discussed above patient with Dr India Lomeli, neurology. Pt seen and examined. Pt is 18 months post- from a with significant med issues including a trach. The babyhas essentially around the clock nursing care minus 4 hours. The pt usually has help during those four hours. 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 She went up to bathroom, before arriving there had tingling in L thigh and L arm with transient weakness such that she fell.No alteration of consciousness.the pt did not check her blood sugar. The tingling persisted 20 min. Pt developed a headache several hours later while in ER. Pt was lying in bed in ER developed drooling from the l face and then had a 25- 35 sec sz with tongue biting and 30 min post-ictal confusion. No hypotension is recorded, pt was tachycardic during the episode. ER loaded pt Keppra, no benzo received. Pt denies ETOH use or wd. No benzo use. Has remotely used tramadol, none recently. No hx of sz in youth, head injury. 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 Hx of migraine, no neurologic sx. No hx of DVT, PE. Pt used depoprovera for control. No family hx of early stroke or CO DVT, PE. MRI, EEG, CTA, echo, glucose noncontrib. Imp episode earlier in day could represent a simple partial sz with witnessed sz in ER likely represents a secondarily genl sz. Alternatively early event could be acephalgic migraine, or TIA. Pt has vasc risk factors. After lengthy discussion with pt have elected to continue tx with Keppra. Will likely perform an ambulatory eeg as outpt. Will likely tx pt for 2 years and reassess. The occurrence of a second sz while pt caring for an ill child could cause injury to pt or child. Spoke of Keppra, mood changes, seizure safety, safe child care worker.. She may not drive for 6 months. I would elect to cont asa. consider statin tx. Will see pt as outpt. MD Marion History of Present Illness Reason for Consultation: TIA Requesting Physician: Mariaelena Servin Attending Physician: Mariaelena Servin History of Present Illness Layne is a 28 year old female with PMH-DM, IBS, GERD, tobacco use disorder, adjustment disorder, obesity, post partium depression. She had a sudden onset of left-sided weakness, numbness lasting for about 10 to 20 minutes while using bathroom lost her balance and fell into the tube. She had difficulty getting up from the floor secondary to weakness. this resolved within 20 minutes but her PCP wanted her to be checked. She then had a witnessed generalized seizure while in ED. She had a headache in the ED and was given Tylenol which she states she started chocking on then had a 25-30 seconds--episode of generalized seizure followed by postictal state lasting for about 30 minutes while in ED. There was drooling from the left side of her face prior to the genl sz and tongue biten. She is been complaining of frontal headache after the seizure which is slightly improved with Tylenol. Her weakness is back to baseline. She had an EMG done in the past by Dr. Yadav for carpel tunnel. denies migraines but a weekly headache which improves with pain meds. She states having loose watery diarrhea since 1 week duration and has associated nausea but no vomiting. Denies any history of chest pain, SOB, palpitations, dizziness, N, V, head trauma, change in vision, slurred speech, bowel/bladder incontinence,she did stop her Zoloft for post partium depression but restarted . Allergies Allergy/AdvReac Type Severity Reaction Status Date / Time Penicillins Allergy Severe RASH Verified 04/02/19 13:15 tramadol Allergy Mild Chest Pain Unverified 04/02/19 13:15 Home Medications Home Medications Medication Instructions Recorded Confirmed Type ondansetron 4 mg PO Q8H PRN #10 tab 09/22/18 04/02/19 Rx diphenoxylate-atropine [Lomotil] 1 tab PO TID PRN 04/02/19 04/02/19 History lisinopril 2.5 mg PO DAILY 04/02/19 04/02/19 History loratadine [Claritin] 10 mg PO DAILY 04/02/19 04/02/19 History metformin 500 mg PO DAILY 04/02/19 04/02/19 History sertraline [Zoloft] 50 mg PO DAILY 04/02/19 04/02/19 History aspirin [Ecotrin Low Strength] 81 mg PO QAM 30 Days #30 tab 04/03/19 Rx levetiracetam [Keppra] 500 mg PO BID 30 Days #60 tab 04/03/19 Rx simvastatin [Zocor] 40 mg PO HS #0 tab 04/03/19 04/02/19 Rx Patient History Medical History Tobacco use disorder Cigarette nicotine dependence, uncomplicated No acute medical problems Surgical History History of cholecystectomy History of arthroscopy of shoulder Family History Mother Diabetes Grandmother (Maternal) Epilepsy Diabetes Social History Preferred Language: Hungarian Communication Ability: Effective Mercury Recoverer Required: No Beliefs That Will Affect Care: None Current Living Situation: Family Other Information That Helps Us Care for You: No Feels Safe at Home: Yes Safety Concerns: Feels Safe At This Time Smoking Status: Current every day smoker Tobacco Type: cigarettes Do You Dip or Chew Tobacco: No Second Hand Exposure: Yes Hx Alcohol Use: Yes Hx Substance Use: No Physical Exam Physical Exam: Physical Exam: Constitutional: appearance over nourished, healthy Ears, Nose, Mouth and Throat: mucous membranes moist, no injection and skin normal, eyes normal Cardiovascular: normal S-1 and S-2 and regular rate and rhythm Respiratory: clear to auscultation (CTA) and no rales, rhonchi or wheeze Musculoskeletal: no peripheral edema and good distal pulses Skin: no stigmata of neurocutaneous disease noted and normal and intact Eyes: extraocular muscles intact (EOMI) and pupils equal, round and reactive to light (PERRL) NEUROLOGIC EXAMINATION: Mental status: Alert and interactive Oriented to full date and location Oriented to person Speech fluent with no evidence of aphasia Cranial Nerves smile eye brow raise Reflexes: Deep tendon reflexes were symmetrical and graded 2/5. Sensory: light touch cool touch Coordination: finger to nose no bi pass, no tremor, negative Romberg Gait/Stance: Posture normal. Gait normal: with steady with steps, base, turning, heel and toe walking and tandem gait. Motor: Negative for pronator drift of out stretched arms with eyes closed. Strength: biceps triceps hand hunter guide intrinsics 5/5 bilaterally, hip flex plantar flex ext bilaterally 5/5 Results & Data Vital Signs (Past 12 Hours) Vital Signs Temp Pulse Resp BP BP Pulse Ox 04/03/19 11:24 36.8 C 71 20 139/86 97 04/03/19 06:58 37.1 C 73 16 122/80 94 04/03/19 02:40 36.9 C 72 18 94/61 L 96 Laboratory Results Abnormal lab results 04/02/19 04/02/19 04/03/19 Range/Units 13:00 21:00 06:56 POC Glucose 205 H (70-99) Hemoglobin A1c 7.0 H (4.5-5.6) % Urine Appearance Turbid A (Clear) Urine Protein 1+ H (Negative) Urine Glucose (UA) 1+ H (Negative) Urine WBC (Auto) 5-10 H (0-5) /hpf U Hyaline Cast (Auto) 10-30 H (0-5) /lpf U Epithel Cells (Auto) >30 H (0-5) /lpf Urine Bacteria (Auto) 1+ H (Negative) Amorphous Sediment Present A (None Prsent) Granular Casts 5-10 H (0) /lpf 04/03/19 04/03/19 Range/Units 07:02 11:27 POC Glucose 149 H 158 H (70-99) Hemoglobin A1c (4.5-5.6) % Urine Appearance (Clear) Urine Protein (Negative) Urine Glucose (UA) (Negative) Urine WBC (Auto) (0-5) /hpf U Hyaline Cast (Auto) (0-5) /lpf U Epithel Cells (Auto) (0-5) /lpf Urine Bacteria (Auto) (Negative) Amorphous Sediment (None Prsent) Granular Casts (0) /lpf Diagnostic Findings CT head-No acute intracranial abnormality. MRI brain-No acute intracranial abnormality. CTA head- No significant stenosis, occlusion, or aneurysm within the [place]. No significant stenosis, occlusion, or dissection identified within the carotid or vertebral arteries. CTA neck- No significant stenosis, occlusion, or aneurysm within the [place]. No significant stenosis, occlusion, or dissection identified within the carotid or vertebral arteries.
--- NOTE | 2019-04-03 14:19 | Procedure Note ---
EEG Procedure Note Date of Service April 03, 2019 Start / End Times Start Time: 08:23 End Time: 08:[address] Lomeli History A 28 year old woman with witnessed seizure. EEG performed for evaluation of epileptiform activity. Home Medication List Home Medications Medication Instructions Recorded Confirmed Type ibuprofen 800 mg PO TID PRN 09/22/18 04/02/19 History ondansetron 4 mg PO Q8H PRN #10 tab 09/22/18 04/02/19 Rx diphenoxylate-atropine [Lomotil] 1 tab PO TID PRN 04/02/19 04/02/19 History lisinopril 2.5 mg PO DAILY 04/02/19 04/02/19 History loratadine [Claritin] 10 mg PO DAILY 04/02/19 04/02/19 History metformin 500 mg PO DAILY 04/02/19 04/02/19 History sertraline [Zoloft] 50 mg PO DAILY 04/02/19 04/02/19 History simvastatin [Zocor] 20 mg PO HS 04/02/19 04/02/19 History Inpatient Medication List Aspirin (Ecotrin Ectab) 81 mg PO QAM [facility] Stop: 05/03/19 08:59 Last Admin: 04/03/19 07:55 Dose: 81 mg Documented by: [id number] Diphenoxylate HCl/Atropine (Lomotil) 1 tab PO TID PRN PRN Reason: Diarrhea Stop: 05/02/19 20:28 Last Admin: 04/03/19 12:39 Dose: 1 tab Documented by: [id number] Gadobutrol (Gadavist 65ml) 9.5 ml IV ONCE PRN PRN Reason: Interaction Checking Stop: 04/06/19 17:02 Last Admin: 04/02/19 17:03 Dose: 9.5 ml Documented by: [id number] Insulin Aspart (Novolog Flexpen) 0 units SC [facility] Stop: 05/02/19 20:59 Last Admin: 04/03/19 12:03 Dose: 2 units Documented by: [id number] Cosigned by: [id number] Admin: 04/03/19 07:55 Dose: Not Given Documented by: [id number] Cosigned by: [id number] Admin: 04/02/19 21:38 Dose: 7 units Documented by: [id number] Cosigned by: [id number] Insulin Glargine (Lantus Solostar Pen) 5 units SC BID [facility] Stop: 05/02/19 20:59 Last Admin: 04/03/19 07:56 Dose: 5 units Documented by: [id number] Cosigned by: [id number] Admin: 04/02/19 21:41 Dose: 5 units Documented by: [id number] Cosigned by: [id number] Ioversol (Optiray 320 125ml) 120 ml IV ONCE PRN PRN Reason: Interaction Checking Stop: 04/06/19 16:17 Last Admin: 04/02/19 16:19 Dose: 120 ml Documented by: [id number] Levetiracetam (Keppra) 500 mg PO BID [facility] Stop: 05/02/19 20:59 Last Admin: 04/03/19 07:54 Dose: 500 mg Documented by: [id number] Admin: 04/02/19 21:37 Dose: 500 mg Documented by: [id number] Lisinopril (Zestril) 2.5 mg PO DAILY [facility] Stop: 05/03/19 08:59 Last Admin: 04/03/19 07:54 Dose: 2.5 mg Documented by: [id number] Loratadine (Claritin) 10 mg PO DAILY [facility] Stop: 05/03/19 08:59 Last Admin: 04/03/19 07:55 Dose: 10 mg Documented by: [id number] Simvastatin (Zocor) 20 mg PO HS [facility] Stop: 05/02/19 20:59 Last Admin: 04/02/19 21:42 Dose: Not Given Documented by: [id number] Discontinued Medications Acetaminophen (Tylenol) 650 mg PO NOW STA Stop: 04/02/19 15:04 Last Admin: 04/02/19 15:20 Dose: 650 mg Documented by: [id number] Levetiracetam 1,000 mg/ (Dextrose) 110 mls @ 440 mls/hr IV TODAY@1531 [facility] Stop: 04/02/19 17:00 Last Infusion: 04/02/19 16:07 Dose: 0 mls/hr Documented by: [id number] Admin: 04/02/19 15:52 Dose: 440 mls/hr Documented by: [id number] Sodium Chloride (Nss 1000ml) 1,000 mls @ 999 mls/hr IV .Q1H1M [facility] Stop: 04/02/19 18:30 Last Infusion: 04/02/19 19:34 Dose: 0 mls/hr Documented by: [id number] Admin: 04/02/19 17:58 Dose: 999 mls/hr Documented by: [id number] Potassium Chloride/Sodium Chloride (Normal Saline W/20 Meq Kcl) 20 meq in 1,000 mls @ 80 mls/hr IV .[id number] ONE Stop: 04/03/19 09:29 Last Infusion: 04/03/19 09:16 Dose: 0 mls/hr Documented by: [id number] Admin: 04/02/19 21:35 Dose: 80 mls/hr Documented by: [id number] Ibuprofen (Motrin) 800 mg PO NOW STA Stop: 04/02/19 21:32 Last Admin: 04/02/19 22:14 Dose: 800 mg Documented by: [id number] Ketorolac Tromethamine (Toradol) 15 mg IV NOW ONE Stop: 04/02/19 17:23 Last Admin: 04/02/19 17:59 Dose: 15 mg Documented by: [id number] Ondansetron HCl (Zofran) 4 mg IV NOW STA Stop: 04/02/19 17:54 Last Admin: 04/02/19 17:59 Dose: 4 mg Documented by: [id number] Description This is a 21 electrode EEG with a single channel dedicated to limited EKG. The electrodes were placed in accordance with the International 10-20 system. REPORT: At the onset of the EEG, the patient is awake. The background activity consist of 11 Hz, persistent, posteriorly dominant, moderate amplitude, symmetr ic and rhythmic activity that is reactive to eye opening. Anteriorly, it consist of a mixture of low voltage indeterminate activity and 15-25 Hz, persistent, low amplitude, symmetric and rhythmic activity. Stepwise intermittent photic stimulation does not induce any abnormalities. Drowsiness is characterized by low amplitude mixed frequency activity, roving eye movements, and decreased eye blinking and muscle artifact. IMPRESSION: This is a normal awake and drowsy EEG. There is no evidence of focal slowing or epileptiform activity.
--- NOTE | 2019-04-03 17:27 | Discharge Summary ---
Date of Service April 03, 2019 Admission HPI Per Admitting Provider Patient is a 28-year-old female with history of diabetes mellitus, irritable bowel syndrome, GERD, tobacco use disorder, adjustment disorder, obesity and other problems presents with history of sudden onset of left-sided weakness, numbness lasting for about 10 to 20 minutes while using bathroom today. She admits to having fell in the bathroom bruising her left hand. She had difficulty getting up from the floor secondary to weakness which later resolved. She denies any loss of consciousness, facial deformity, bowel or bladder incontinence, speech problems at the time. On recommendations from her primary care physician patient presents to ED for further evaluation. Patient had a witnessed generalized seizure while in ED. As per the staff, patient initially had hiccups and had a 25-30 seconds--episode of generalized seizure followed by postictal state lasting for about 30 minutes while in ED. Patient was also noted to have drooling from the left side of her face, had a tongue bite. She is been complaining of frontal headache after the seizure which is slightly improved with Tylenol. Currently weakness resolved. She admits to having history of migraine and using ibuprofen as needed and previously followed with Dr. Yadav. Reports having headaches about once a week which improves with pain meds. She states having loose watery diarrhea since 1 week duration and has associated nausea but no vomiting. Denies any history of chest pain, SOB, palpitations, dizziness, pedal edema, cough, fever, chills, head trauma, change in vision, slurred speech, bowel/bladder incontinence, blood in stools, recent antibiotic use, dysuria, recent change in medications. Principal Diagnosis 1. Left upper extremity weakness, stroke ruled out 2. New onset seizure Secondary diagnosis on discharge 1. IBS 2. GERD 3. Tobacco abuse disorder 4. Obesity Discharge Exam GENERAL- AAOX3, No acute distress LUNGS- Air entry bilaterally equal. No rales, rhonchi, crackles, wheezes heard. HEART- Regular rate and rhythm. No murmurs ABDOMEN- Soft, non tender, non distended, Bowel sounds heard. EXTREMITIES- Good peripheral pulses, no edema NEUROMUSCULAR- AAOX3, Cranial nerves intact, Power= 5/5 all extremities Discharge Data Allergies Allergy/AdvReac Type Severity Reaction Status Date / Time Penicillins Allergy Severe RASH Verified 04/02/19 13:15 tramadol Allergy Mild Chest Pain Unverified 04/02/19 13:15 Consultations 04/02/19 17:19 ED Decision to Admit Stat 04/02/19 20:29 Consult Neurology Routine Ordered Studies 04/02/19 12:30 CT head/brain wo con Stat 04/02/19 15:04 CT angio head w con Stat CT angio neck with con Stat MR brain wo/w con Stat Hospital Course (1) Seizure: Patient presented with strokelike symptomssudden onset left-sided weakness, numbness lasting for 10 to 20 minutes while using bathroom. Had a fall with difficulty getting up from floor secondary to weakness which later resolved. No loss of consciousness associated with that. Patient was referred to ED by her primary care physician recommendations. Patient had a witnessed generalized seizure while in ED with no prior history of seizures. Seizure Witnessed Generalized Seizure Episode while in ED. No prior hx of seizures. -S/P Loading dose of Keppra while in ED -Continue with keppra 500 mg PO BID as per neurology -Ativan PRN -Work up- MRI brain- neg for acute abnormalities, CTA head/neck- No significant stenosis, Drug screen- normal, Lyme screen - Neg, BMP- normal, Glucose- elevated with HBA1C 7.0, Lipid panel - 123 (Goal< 70), Echo - No evidence of atrial se ptal defect , EF 55-60%, Hypercoagulable work up pending, TSH repeat- normal. EEG- No seizure focus- preliminary results. -Neurology consulted -Seizure precautions. No driving for 6 months (emphasized to the patient and family importance of doing so). 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 Ambulating Code Status: -Full Code Disposition: OK to discharge home today Cleared by neurology. Follow up with neurology outpatient. No driving for 6 months Total Time Total Time Spent Total Time Spent (In Minutes): 35 minutes Discharge Plan Discharge Items Patient Disposition: Home - Self-Care Reason For Visit: SEIZURE Discharge Diagnosis: 1, New onset seizure 2. Left upper arm weakness, stroke ruled out Condition: Good Discharge Goals: Improve disease control Activity: Resume your previous activity Activity Comment: NO DRIVING FOR 6 MONTHS. No heights, swimming alone or bathing Non-emergency contact: Primary Care Provider Call non-emergency contact if: your symptoms worsen Follow-up/Referrals: Chelsea Soliz DO [Primary Care Provider] - 04/05/19 10:15 am India Lomeli MD [Physician] - (Office will call you for appt date and time.) Diet: Low Fat and Low Sodium (2gm) Addtl Provider Instructions: MEDICATION CHANGES 1. New medication- Keppra 500 mg PO twice a day for seizure prophylaxis 2. New medication- Aspirin 81 mg daily 3. Increased simvastatin to 40 mg q bedtime from 20 mg daily as goal for LDL Cholesterol - <70 QUIT SMOKING NO DRIVING FOR 6 MONTHS Prescriptions: New levetiracetam [Keppra] 500 mg Tablet 500 mg PO BID 30 Days Qty: 60 RF: 0 aspirin [Ecotrin Low Strength] 81 mg Tablet,Delayed Release (Dr/Ec) 81 mg PO QAM 30 Days Qty: 30 RF: 0 Continued ondansetron 4 mg tablet,disintegrating 4 mg PO Q8H PRN (Reason: nausea and vomiting) Qty: 10 RF: 0 metformin 500 mg Tablet 500 mg PO DAILY RF: 0 sertraline [Zoloft] 50 mg Tablet 50 mg PO DAILY RF: 0 diphenoxylate-atropine [Lomotil] 2.5-0.025 mg Tablet 1 tab PO TID PRN (Reason: Diarrhea) RF: 0 lisinopril 2.5 mg Tablet 2.5 mg PO DAILY RF: 0 loratadine [Claritin] 10 mg Tablet 10 mg PO DAILY RF: 0 Changed simvastatin [Zocor] 20 mg Tablet 40 mg PO HS Qty: 0 RF: 0 Discontinued ibuprofen 800 mg Tablet 800 mg PO TID PRN (Reason: Pain) RF: 0 Stand-Alone Forms: [facility], Work/School Release (Inpt) Discharge Orders: Discharge Order (Routine); Ordered 04/03/19 Ordered By: Mariaelena Servin Admission Data Admit Date/Time: 04/02/19 18:45 Attending Provider: Mariaelena Servin Admit Provider: Nolan Steele Primary Care Provider: Chelsea Soliz Other Providers: Nolan Steele ; India Lomeli ; Vishal Falcon Service: Telemetry Other Interventions: Discharge Summary Assessment (RN) Last Done: 04/03/19 17:23 Pending Studies at Discharge: No
[2019-04-07 14:52] LABS: Anti Cardiolipin Ab IgG <14 GPL (< = 14); Anti Cardiolipin Ab IgM <12 MPL (< = 12); Anti-Cardiolipin Ab IgA <11 APL (< = 11); Anti-Thrombin III Activity 103 % activity (80-120); B2 Glycoprotein IgA <9 SAU (<=20); B2 Glycoprotein IgG <9 SGU (<=20); B2 Glycoprotein IgM <9 SMU (<=20); Lupus Anticoagulant Negative (Negative); Protein S Functional(Activity) 92 % (60-140)
== END 2019-04-03 17:57 | disposition home or self-care (01) | DRG 101 ==
LOC: ED 11:57 → SUATTDRO 18:45 → 2S 18:45